=== PATIENT | female | born 1955 | race Caucasian/White ===

== ENCOUNTER 2016-05-22 09:43 | Outpatient (RCR) | payer MEDICARE, MEDICAID ==
[~2016-05-22 09:43] MED LIST: AMLO10TA2 PO; ASPI-808 PO; CETI10TA17 PO; ENAL20TA PO; FURO-124 PO; POTA20TA8 PO
--- OUTSIDE RECORDS SUMMARY | 2016-05-22 09:46 | XMS REPORT | Continuity of Care Document ---
Author Author [facility] Address Unknown Phone Unavailable Active Allergies and Adverse Reactions Not on File Current Medications Not on file Active Problems Not on file Social History Tobacco Use Types Packs/Day Years Used Date Never Assessed Plan of Care Health Maintenance Due Date Last Done Comments Hepatitis C Screening 1955 Tdap Vaccines 1964 Tetanus Vaccine (Td 1964 Booster) Cervical Cancer Screening 1974 Breast Cancer 12/19/2003 Screening-Mammogram (bilateral) Colon Cancer 12/19/2003 Screening-Colonoscopy Zoster Vaccine 2013 Influenza Vaccine (#1) 2016 Results from Last 3 Months Not on file
== END 2016-08-20 | disposition home or self-care (01) ==
LOC: CARD 09:43
PROVIDERS: ATTEND Internal Medicine Cardiovascular Disease
DX: G45.3 Amaurosis fugax (principal); I65.23 Occlusion and stenosis of bilateral carotid arteries; I10 Essential (primary) hypertension; R06.02 Shortness of breath; Z72.0 Tobacco use
CPT/HCPCS: 93225; 93226

== ENCOUNTER 2016-09-01 12:55 | Emergency (ER) | payer MEDICARE, MEDICAID ==
[~2016-09-01] VITALS: Ht 170.2 cm; Wt 158.8 kg
--- OUTSIDE RECORDS SUMMARY | 2016-09-01 13:01 | XMS REPORT | Continuity of Care Document ---
Author Author Sandhya Arthur Address Unknown Phone Unavailable Care Team Providers Care Ekg/Ecg Technician Name Role Phone [employer] Unavailable Unavailable Problems Medications Allergies, Adverse Reactions, Alerts Immunizations Results Vital Signs Encounters Procedures Plan of Care Social History Assessment and Plan Family History Value Date Source Advance Directives Order Name Results Value Date Source
--- NOTE | 2016-09-01 14:09 | ED Fall/Injury ---
General Chief Complaint: Trauma-Non Activation Stated Complaint: FALL/RIGHT ANKLE/KNEE/RIBS PAIN Nursing Triage Note: Pt c/o R knee pain, R ankle pain, and R side pain after falling when trying to get into truck earlier today. Pt denies hitting head or LOC. Source: patient, family Exam Limitations: no limitations History of Present Illness Time seen by provider: 13:47 Initial Comments Patient states she fell while getting into her truck at 1000. States her rt knee gave out while she was lifting her lt leg into the truck. Fell onto the left knee. Now c/o right knee pain, right ankle pain, mild right rib pain. Denies hitting her head or loss of consciousness. Denies neck or back pain. Location Injury Occurred: home Occurred: this morning (1000) Injuries/Pain Location: chest (right ribs), lower extremity (right knee and right ankle) Context: other (right knee gave out while getting into the truck) Loss of Consciousness: no loss of consciousness Modifying Factors: Worse With Movement, Worse With Other (worse with ambulation ) Allergies and Home Medications Allergies Coded Allergies: Tetracyclines (Verified Allergy, Unknown, NAUSEA, 02/20/15) adhesive tape (Verified Allergy, Unknown, HIVES, 02/20/15) sulfamethoxazole (Verified Allergy, Unknown, RASH, 02/20/15) trimethoprim (Verified Allergy, Unknown, RASH, 02/20/15) Home Medications Amlodipine Besylate 10 Mg Tablet 10 MG PO DAILY (Reported) Aspirin 325 Mg Tablet 325 MG PO DAILY (Reported) Cetirizine HCl 10 Mg Tablet 5 MG PO DAILY (Reported) TAKE 1/2 OF 10MG TAB Enalapril Maleate 20 Mg Tablet 20 MG PO BID (Reported) Furosemide 40 Mg Tablet 40 MG PO DAILY@1800 (Reported) Potassium Chloride 20 Meq Tab.er.prt 20 MEQ PO DAILY@1800 (Reported) Constitutional: no symptoms reported Eyes: No Symptoms Reported Ears, Nose, Mouth, Throat: no symptoms reported Respiratory: see HPINo cough, No dyspnea on exertion, No hemoptysis, No short of breath, No stridor, No wheezing, other (mild right rib pain) Cardiovascular: No chest pain, edema (chronic lower extremity edema)No palpitations, No syncope Gastrointestinal: no symptoms reported Genitourinary: no symptoms reported Musculoskeletal: see HPINo back pain, joint painNo neck pain Skin: no symptoms reported Psychiatric/Neurological: Denies Headache, Denies Numbness, Denies Paresthesia , Denies Seizure, Denies Tingling, Denies Weakness All Other Systems Reviewed Negative Unless Noted: Yes (Negative excepted noted.) Past Mezyggq-Naobsp-Offknf Hx Patient Social History Alcohol Use: Denies Use Recreational Drug Use: No Smoking Status: Current Everyday Smoker Type Used: Cigarettes Recent Foreign Travel: No Contact w/Someone Who Travel: No Recent Infectious Disease Expo: No Recent Hopitalizations: No Immunizations Up To Date Tetanus Booster (TDap): Less than 5yrs Seasonal Allergies Seasonal Allergies: No Surgeries HX Surgeries: Yes (COLON RESECTION, VENTRAL HERNIA, ) Respiratory Hx Respiratory Disorders: Yes Respiratory Disorders: Sleep Apnea Cardiovascular Hx Cardiac Disorders: Yes Cardiac Disorders: High Cholesterol, Hypertension Neurological Hx Neurological Disorders: Yes (CAROTID STENOSIS, POSSIBLE MILD TIA) Neurological Disorders: TIA Genitourinary Hx Genitourinary Disorders: No Gastrointestinal Hx Gastrointestinal Disorders: No (OCC CONSTIPATION) Gastrointestinal Disorders: Chronic Constipation Musculoskeletal Hx Musculoskeletal Disorders: Yes Musculoskeletal Disorders: Arthritis Endocrine Hx Endocrine Disorders: No HEENT HX ENT Disorders: Yes HEENT Disorders: Cataract Cancer Hx Cancer: No Psychosocial Hx Psychiatric Problems: No Integumentary HX Skin/Integumentary Disorder: No Blood Transfusions Hx Blood Disorders: No Reviewed Nursing Assessment Reviewed/Agree w Nursing PMH: Yes Family Medical History Significant Family History: No Pertinent Family Hx Family Medial History: Arthritis 19 MOTHER Asthma 19 MOTHER Cardiovascular disease 19 FATHER Cataracts 19 MOTHER Colon cancer G8 BROTHER Diabetes mellitus 19 MOTHER Hypertension 19 MOTHER G8 SISTER Respiratory disorder 19 FATHER (LUNG CANCER) Physical Exam Vital Signs Vital Sign - Last 12Hours 09/01/16 13:49 Temp 97.9 Pulse 67 Resp 18 B/P 148/65 Pulse Ox 98 O2 Delivery Room Air Capillary Refill : Less Than 3 Seconds General Appearance: WD/WN no apparent distress HEENT: PERRL/EOMI normal ENT inspection TMs normal pharynx normal other ( normocephalic, atraumatic.) Neck: non-tender full range of motion supple normal inspection Cardiovascular: normal peripheral pulses regular rate, rhythm no murmur Respiratory: chest non-tender (unable to reproduce rib tenderness.) no respiratory distress wheezing (expiratory wheezing noted in all of the right lung gill.) Peripheral Pulses: 2+ Dorsalis Pedis (R), 2+ Left Dors-Pedis (L), 2+ Radial Pulses (R), 2+ Radial Pulses (L) Gastrointestinal: normal bowel sounds non tender softNo distended Back: normal inspection no vertebral tenderness Extremities: normal range of motion normal capillary refill pelvis stable pedal edema (2+ pedal edema bilaterally (patient reports this is normal for her. 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 no motor/sensory deficits alert normal mood/affect oriented x 3 Skin: normal color warm/dryNo ecchymosis (no evidence of trauma.) [place] Coma Score Best Eye Response: (4) Open Spontaneously Best Verbal Response: (5) Oriented Best Motor Response: (6) Obeys Commands Daphney Total: 15 Progress/Results/Core Measures Results/Orders My Orders Orders-AFTAB PAL Ribs/Unilateral With Chest (09/01/16 13:56) Knee, Right, 3 Views (09/01/16 13:56) Ankle, Right, 3 Views (09/01/16 13:56) Ct Head Wo (09/01/16 13:56) Vital Signs/I&O Vital Sign - Last 12Hours 09/01/16 09/01/16 13:49 15:37 Temp 97.9 97.9 Pulse 67 68 Resp 18 18 B/P 148/65 Pulse Ox 98 98 O2 Delivery Room Air Blood Pressure Mean: 92 Diagnostic Imaging Diagonstic Imaging: CT Plain Films/CT/US/NM/MRI: head Comments FINDINGS: There is no intracranial hemorrhage, edema or mass effect. The brain parenchyma appears unremarkable. No hydrocephalus. The visualized portions of the orbits and paranasal sinuses appear unremarkable. IMPRESSION: Unremarkable study. Dictated by: Dictated on workstation # [id number] Reviewed: Reviewed by Me (radiology report reviewed by me) Diagonstic Imaging: Xray Plain Films/CT/US/NM/MRI: chest Comments FINDINGS: The lungs are clear. The heart size is normal. No effusion or pneumothorax. The mediastinum and romel appear unremarkable. Right rib radiographs demonstrate no definite fracture. IMPRESSION: Unremarkable exam. No right rib fracture identified. Dictated by: Dictated on workstation # [id number] Reviewed: Reviewed by Me (radiology report reviewed by me) Diagonstic Imaging: Xray Plain Films/CT/US/NM/MRI: knee Comments FINDINGS: There is diffuse soft tissue swelling around the knee or this may relate to a large patient body habitus. There is no fracture or dislocation. No suprapatellar effusion. No radiopaque foreign body. There is tricompartment osteophyte formation with moderate joint space loss in the medial and patellofemoral compartments. IMPRESSION: Osteoarthritis. Dictated by: Dictated on workstation # [id number] Reviewed: Reviewed by Me (radiology report reviewed by me) Diagonstic Imaging: Xray Plain Films/CT/US/NM/MRI: ankle Comments FINDINGS: There is diffuse soft tissue swelling. The ankle mortise is normal in configuration. No fracture or dislocation is seen. No radiopaque foreign body. IMPRESSION: Diffuse soft tissue swelling. No fracture seen. Dictated by: Dictated on workstation # [id number] Reviewed: Reviewed by Me (radiology report reviewed by me) Departure Communication Progress Notes diagnostic findings discussed with the patient. plan for dsch to home. Impression Impression: Primary Impression: Contusion of knee, right Additional Impressions: Contusion of rib on right side Qualified Code: S20.211A - Contusion of right front wall of thorax, initial encounter Right ankle sprain Qualified Code: S93.401A - Sprain of unspecified ligament of right ankle, initial encounter Disposition: 01 HOME, SELF-CARE Condition: Improved Departure-Patient Inst. Decision time for Depature: 15:28 Referrals: [facility] (PCP[facility]Family) Primary Care Physician Patient Instructions: Ankle Sprain (DC), Contusion (DC) Add. Discharge Instructions: All discharge instructions reviewed with patient and/or family. Voiced understanding. Tylenol extra strength [id number] as directed for pain. Ibuprofen 800 mg by mouth every 8 hours as needed for pain. Ice pack for 20 minute intervals as needed for pain. Kieran wrap as instructed. Activity as tolerated. Follow-up with your family practitioner if no improvement in symptoms in 7-10 days. Return to the emergency department for worsened pain, numbness, weakness, headache, dizziness, neck pain, back pain, shortness of air , seizure, vomiting, or any other concerns. AFTAB PAL Sep 01, 2016 14:09
--- NOTE | 2016-09-01 14:17 | Diagnostic Imaging Report ---
PROCEDURE: CT head without contrast. TECHNIQUE: Multiple contiguous axial images were obtained through the brain without the use of intravenous contrast. INDICATION: Fall . FINDINGS: There is no intracranial hemorrhage, edema or mass effect. The brain parenchyma appears unremarkable. No hydrocephalus. The visualized portions of the orbits and paranasal sinuses appear unremarkable. IMPRESSION: Unremarkable study. Dictated by: Dictated on workstation # [id number]
--- NOTE | 2016-09-01 14:36 | Diagnostic Imaging Report ---
3 views of the right ankle. INDICATION: Fall. FINDINGS: There is diffuse soft tissue swelling. The ankle mortise is normal in configuration. No fracture or dislocation is seen. No radiopaque foreign body. IMPRESSION: Diffuse soft tissue swelling. No fracture seen. Dictated by: Dictated on workstation # [id number]
--- NOTE | 2016-09-01 14:43 | Diagnostic Imaging Report ---
PA chest and right rib radiographs. INDICATION: Injury. FINDINGS: The lungs are clear. The heart size is normal. No effusion or pneumothorax. The mediastinum and romel appear unremarkable. Right rib radiographs demonstrate no definite fracture. IMPRESSION: Unremarkable exam. No right rib fracture identified. Dictated by: Dictated on workstation # [id number]
--- NOTE | 2016-09-01 14:44 | Diagnostic Imaging Report ---
EXAMINATION: Three views of the right knee. INDICATION: Injury. FINDINGS: There is diffuse soft tissue swelling around the knee or this may relate to a large patient body habitus. There is no fracture or dislocation. No suprapatellar effusion. No radiopaque foreign body. There is tricompartment osteophyte formation with moderate joint space loss in the medial and patellofemoral compartments. IMPRESSION: Osteoarthritis. Dictated by: Dictated on workstation # [id number]
[2016-09-01 15:37] VITALS: BP 144/73
== END 2016-09-01 15:37 | disposition home or self-care (01) ==
LOC: EDUNIT# 12:55 → ER 12:58
DX: S93.401A Sprain of unspecified ligament of right ankle, initial encounter (principal); S80.01XA Contusion of right knee, initial encounter; S20.211A Contusion of right front wall of thorax, initial encounter; M17.11 Unilateral primary osteoarthritis, right knee; I10 Essential (primary) hypertension; F17.210 Nicotine dependence, cigarettes, uncomplicated; Z79.82 Long term (current) use of aspirin; Z79.899 Other long term (current) drug therapy; V58.4XXA Person boarding or alighting a pick-up truck or van injured in noncollision transport accident, initial encounter; Y99.8 Other external cause status
CPT/HCPCS: 70450; 71101; 73562; 73610; 99283

== ENCOUNTER → 2017-07-02 | Outpatient (CLI) | payer MEDICARE, MEDICAID ==
[2017-07-02 09:42] LABS: ALANINE AMINOTRANSFERASE 17 U/L (0-55); ALBUMIN 3.8 GM/DL (3.2-4.5); ALKALINE PHOSPHATASE 80 U/L (40-136); BILIRUBIN,TOTAL 0.6 MG/DL (0.1-1.0); BUN/CREATININE RATIO 20; CALCIUM 9.6 MG/DL (8.5-10.1); CARBON DIOXIDE 23 MMOL/L (21-32); CHLORIDE 104 MMOL/L (98-107); CHOLESTEROL 147 MG/DL (< 200); CREATININE SERUM 0.81 MG/DL (0.60-1.30); GFR ESTIMATED > 60; GLUCOSE 124 MG/DL (70-105); HDL CHOLESTEROL 51 MG/DL (40-60); POTASSIUM 4.1 MMOL/L (3.6-5.0); SODIUM 139 MMOL/L (135-145); TOTAL PROTEIN 7.9 GM/DL (6.4-8.2); TRIGLYCERIDES 112 MG/DL (<150); VLDL CHOLESTEROL 22 MG/DL (5-40)
== END ==
LOC: LAB 08:59
PROVIDERS: ATTEND Physician Assistant
DX: I10 Essential (primary) hypertension (principal); E78.2 Mixed hyperlipidemia
CPT/HCPCS: 36415; 80053; 80061

== ENCOUNTER → 2017-07-24 | Outpatient (CLI) | payer MEDICARE, MEDICAID | LOC: CARD 10:19 | PROVIDERS: ATTEND Physician Assistant | DX: H34.232 Retinal artery branch occlusion, left eye (principal); I65.23 Occlusion and stenosis of bilateral carotid arteries; I10 Essential (primary) hypertension; R06.02 Shortness of breath | CPT/HCPCS: 93306 ==

== ENCOUNTER 2017-10-08 10:44 | Outpatient (RCR) | payer MEDICARE, MEDICAID | END 2017-10-08 11:44 | disposition home or self-care (01) | PROVIDERS: ATTEND Nurse Practitioner Community Health | DX: M25.561 Pain in right knee (principal); M25.562 Pain in left knee; E66.01 Morbid (severe) obesity due to excess calories ==

== ENCOUNTER → 2017-12-25 | Outpatient (CLI) | payer MEDICARE, MEDICAID ==
--- NOTE | 2017-12-25 13:39 | Diagnostic Imaging Report ---
EXAM: CT CHEST SCREENING WO INDICATION: 75 pack year smoking history. Current smoker. COMPARISON: None. FINDINGS: Examination is limited by tube current versus body mass. There may be an ill-defined groundglass opacity in the left lower lobe measuring up to 4.5 cm. No solid pulmonary nodules are seen. No endobronchial lesions. No pleural effusion or pneumothorax. Normal heart size. No pericardial effusion. Moderate atherosclerotic calcifications including coronary and aorta. No acute osseous findings. IMPRESSION: 1. Examination limited by tube current versus body mass. 2. There may be an ill-defined groundglass opacity in the central left lower lobe measuring up to 4.5 cm. Given the limitations of this exam, this may actually represent artifact. Recommend followup regular dose chest CT without contrast in 6 months. 3. Moderate atherosclerotic calcifications including coronary and aortic. Lung rads category: 3. Modifier: S. Dictated by: Dictated on workstation # [id number]
--- NOTE | 2017-12-25 17:51 | Diagnostic Imaging Report ---
INDICATION: Routine screening. Comparison is made with prior study from 12/11/2015 and 03/19/2013. 2-D and 3-D bilateral screening mammography was performed with CAD. The current study was also evaluated with a Computer Aided Detection (CAD) system. FINDINGS: Both breasts are primarily involutional. Benign nodular densities in the left breast appear stable. There are benign calcifications. No spiculated mass or malignant-appearing microcalcifications are seen. The axillae are unremarkable. IMPRESSION: No mammographic features suspicious for malignancy are identified. ACR BI-RADS Category 2: Benign findings. Result letter will be mailed to the patient. Note: At least 10% of breast cancer is not imaged by mammography. Dictated by: Dictated on workstation # [id number]
== END ==
LOC: RAD 09:06
PROVIDERS: ATTEND Pediatrics
DX: Z12.31 Encounter for screening mammogram for malignant neoplasm of breast (principal); I70.0 Atherosclerosis of aorta; I25.10 Atherosclerotic heart disease of native coronary artery without angina pectoris; D24.9 Benign neoplasm of unspecified breast; F17.210 Nicotine dependence, cigarettes, uncomplicated
CPT/HCPCS: 77067

== ENCOUNTER → 2018-09-03 | Outpatient (CLI) | payer MEDICARE, MEDICAID ==
[~2018-09-03] MED LIST changes: -AMLO10TA2 PO; +AMLO10TA7 PO
== END ==
LOC: CARD 13:20
PROVIDERS: ATTEND Physician Assistant
DX: I65.23 Occlusion and stenosis of bilateral carotid arteries (principal); H34.232 Retinal artery branch occlusion, left eye; I10 Essential (primary) hypertension; E66.01 Morbid (severe) obesity due to excess calories; R06.02 Shortness of breath; I35.0 Nonrheumatic aortic (valve) stenosis; Z72.0 Tobacco use
CPT/HCPCS: 93306

== ENCOUNTER → 2019-01-07 | Outpatient (CLI) | payer MEDICARE, MEDICAID ==
--- NOTE | 2019-01-07 08:37 | Diagnostic Imaging Report ---
Examination: CT chest without contrast (lung cancer screening). History: [id number] history of smoking. Technique: Low-dose lung cancer screening CT was performed including coronal maximum intensity projection images. Findings: Comparison is 12/25/2017. There are no suspicious pulmonary nodules. No edema or pneumonia. No pleural effusion or pneumothorax. The lungs are mildly emphysematous. Heart size is normal. There are mitral annular and coronary artery calcifications. No axillary, supraclavicular or mediastinal lymphadenopathy. Limited views of the upper abdomen are normal. There are no suspicious osseous lesions. Impression: 1. No suspicious pulmonary nodules. Lung rads category: 2. Modifier: None. Other significant findings: None. Dictated by: Dictated on workstation # [id number]
== END ==
LOC: RAD 07:21
PROVIDERS: ATTEND Pediatrics
DX: Z12.2 Encounter for screening for malignant neoplasm of respiratory organs (principal); Z87.891 Personal history of nicotine dependence

== ENCOUNTER → 2021-04-29 | Outpatient (CLI) | payer MEDICARE, MEDICAID ==
[~2021-04-29] MED LIST changes: +AMLO-251 PO; -AMLO10TA7 PO; -ENAL20TA PO; +ENAL20TA16 PO
== END ==
LOC: CARD 12:30
PROVIDERS: ATTEND Pediatrics
DX: I51.7 Cardiomegaly (principal); I35.0 Nonrheumatic aortic (valve) stenosis
CPT/HCPCS: 93306

== ENCOUNTER → 2022-06-24 | Outpatient (CLI) | payer MEDICARE, MEDICAID ==
[~2022-06-24] MED LIST changes: +POTA-169 PO; -POTA20TA8 PO
== END ==
LOC: RAD 10:11
PROVIDERS: ATTEND Pediatrics
DX: Z78.0 Asymptomatic menopausal state (principal)

== ENCOUNTER → 2022-07-07 | Outpatient (CLI) | payer MEDICARE, MEDICAID ==
[~2022-07-07] MED LIST changes: +RT-ALBUTEROL SULF 2.5 MG/3 ML PRE-MIX VIAL INH ONE
== END ==
LOC: RT 09:45
PROVIDERS: ATTEND Pediatrics
DX: J44.9 Chronic obstructive pulmonary disease, unspecified (principal)
CPT/HCPCS: 94060; 94729

== ENCOUNTER 2023-01-31 17:18 | Observation (INO) | payer MEDICARE, MEDICAID ==
[~2023-01-31] VITALS: Ht 168.9 cm; Wt 145.7 kg
[~2023-01-31 17:18] MED LIST changes: +ENAL-70 PO; -ENAL20TA16 PO; -RT-ALBUTEROL SULF 2.5 MG/3 ML PRE-MIX VIAL INH ONE
--- NOTE | 2023-01-31 17:35 | ED Lower Extremity ---
General Chief Complaint: Lower Extremity Stated Complaint: KNEE PAIN Nursing Triage Note: ARRIVED VIA EMS FROM HOME WITH COMPLAINTS OF RIGHT KNEE PAIN STARTING X3 DAYS AGO. STATES WHEN SHE TRIES TO STAND THE PAIN RADIATES INTO HER RIGHT HIP. Source: patient Exam Limitations: no limitations History of Present Illness Date Seen by Provider: Jan 31, 2023 Time Seen by Provider: 17:31 Initial Comments Patient is a 67-year-old female with a history of carotid artery stenosis, COPD, hypertension who presents ED with right knee pain. Knee pain started 3 days ago. Dull achy pain right anterior knee. This pain does radiate to the posterior knee. Patient stays at [facility] She gets around with a motorized scooter. Typically able to ambulate to the bathroom as needed. Today she was not able to bear weight on her right knee. She reports chronic swelling of her lower extremities for several months. She has a wound to her left lower leg and currently in a bandage. She states the wound appears to be improving. She denies of any calf pain, thigh pain. She does state when she bear weight the pain radiates up into the right hip. She denies fever, chills, redness or swelling of the right knee. Denies of any specific falls. EMS was contacted and assisted with the fire department to help get patient off the ground. Patient states she had to call the fire department to help get her off the stool this morning. Patient denies fever, chills, headache, dizziness, nausea, vomiting, diarrhea, chest pain, shortness of breath. Allergies and Home Medications Allergies Coded Allergies: albuterol (Unverified Allergy, Severe, Anaphylaxis, 01/31/23) Patient states albuterol causes her to feel like throat is closing. States that she was tested here for it prior but is unsure when. Tetracyclines (Verified Allergy, Unknown, NAUSEA, 02/20/15) adhesive tape (Verified Allergy, Unknown, HIVES, 02/20/15) sulfamethoxazole (Verified Allergy, Unknown, RASH, 02/20/15) trimethoprim (Verified Allergy, Unknown, RASH, 02/20/15) Patient Home Medication List Home Medication List Reviewed: Yes Aspirin (Aspirin) 325 Mg Tablet, 325 MG PO DAILY, (Reported) Entered as Reported by: DELANEY CHEUNG on 02/20/15 0728 Last Action: Continued Cetirizine HCl (Cetirizine HCl) 10 Mg Tablet, 5 MG PO DAILY, (Reported) Entered as Reported by: DELANEY CHEUNG on 02/20/151248 Last Action: Converted Cholecalciferol (Vitamin D3) (Vitamin D3) 125 Mcg/Ml (5000 Unit/Ml) Drops, 125 MCG PO DAILY, (Reported) Entered as Reported by: YONG DE PAZ on 02/01/23809 Last Action: Converted Cinnamon Bark (Cinnamon) 500 Mg Capsule, 1,200 MG PO DAILY, (Reported) Entered as Reported by: YONG DE PAZ on 02/01/23809 Last Action: Converted Enalapril Maleate (Enalapril Maleate) 20 Mg Tablet, 20 MG PO DAILY, (Reported) Entered as Reported by: DELANEY CHEUNG on 02/20/151248 Last Action: Converted Furosemide (Lasix) 40 Mg Tablet, 40 MG PO DAILY@1800, (Reported) Entered as Reported by: DELANEY CHEUNG on 02/20/151248 Last Action: Continued [place]-3/Dha/Epa/Fish Oil (Fish Oil 1,400 mg Softgel) 850 Mg-1,400 Mg Capsule, 1 EACH PO DAILY, (Reported) Entered as Reported by: YONG DE PAZ on 02/01/23809 Last Action: Converted Potassium Chloride (Klor-Con M20) 20 Meq Tab.er.prt, 20 MEQ PO DAILY@1800, (Reported) Entered as Reported by: DELANEY CHEUNG on 02/20/151248 Last Action: Continued Rosuvastatin Calcium (Rosuvastatin Calcium) 10 Mg Tablet, 10 MG PO HS, (Reported) Entered as Reported by: YONG DE PAZ on 02/01/23809 Last Action: Continued Vitamin B Complex & Vit C No.3 (B Complex with Vitamin C) 15-10-300 Capsule, 1 EACH PO DAILY, (Reported) Entered as Reported by: YONG DE PAZ on 02/01/23809 Last Action: Converted Discontinued Medications Amlodipine Besylate (Amlodipine Besylate) 10 Mg Tablet, 10 MG PO DAILY, (Reported) Discontinued Reason: No Longer Taking Entered as Reported by: DELANEY CHEUNG on 9/1/15 1249 Last Action: Discontinued Review of Systems Constitutional: No chills, No diaphoresis EENTM: No blurred vision Respiratory: No dyspnea on exertion Cardiovascular: No edema Gastrointestinal: No abdominal pain, No constipation, No nausea, No vomiting Genitourinary: No discharge Musculoskeletal: joint pain; No joint swelling, No muscle pain Skin: No change in color, No change in hair/nails All Other Systems Reviewed Negative Unless Noted: Yes Past Bjxiygw-Napjip-Epluvm Hx Patient Social History Tobacco Use?: Yes Tobacco type used: Cigarettes Smoking Status: Current Everyday Smoker Substance use?: No Alcohol Use?: No Immunizations Up To Date Tetanus Booster (TDap): Less than 5yrs Seasonal Allergies Seasonal Allergies: No Past Medical History Sleep Apnea Currently Using CPAP: No Currently Using BIPAP: Yes High Cholesterol, Hypertension TIA Chronic Constipation Arthritis Cataract Family Medical History Arthritis 19 MOTHER Asthma 19 MOTHER Cardiovascular disease 19 FATHER Cataracts 19 MOTHER Colon cancer G8 BROTHER Diabetes mellitus 19 MOTHER Hypertension 19 MOTHER G8 SISTER Respiratory disorder 19 FATHER (LUNG CANCER) No Pertinent Family Hx Physical Exam Vital Signs Vital Signs - First Documented 01/31/23 17:18 Temp 36.4 Pulse 84 Resp 16 B/P (MAP) 130/68 (88) Pulse Ox 94 O2 Delivery Room Air Capillary Refill : Less Than 3 Seconds Height, Weight, BMI Height: 5'7" Weight: 350lbs. 0.0oz. 158.846142mb; 55.00 BMI Method:Stated General Appearance: WD/WN, no apparent distress HEENT: PERRL/EOMI, TMs normal, pharynx normal Neck: non-tender, full range of motion, supple, normal inspection Cardiovascular: regular rate, rhythm, no edema, no gallop, no JVD Respiratory: chest non-tender, lungs clear, normal breath sounds, no respiratory distress, no accessory muscle use Gastrointestinal: normal bowel sounds, non tender, soft, no organomegaly Back: normal inspection, no CVA tenderness Hips: bilateral hip non-tender, bilateral hip normal inspection, bilateral hip normal range of motion, bilateral hip no evidence of injury Legs: bilateral leg swelling (Bilateral lower extremity swelling.), bilateral leg other (+2 pitting edema bilateral lower extremity. Softball size healing anterior lower skin wound without necrosis, purulent drainage, or ulceration) Knees: right knee other (Bilateral anterior knee tenderness, posterior knee tenderness with full extension and flexion to 90 degrees. Anterior and posterior knee tenderness. No laxity with valgus or varus stress. Negative anterior and posterior drawer test) Ankles: bilateral ankle non-tender, bilateral ankle normal inspection, bilateral ankle normal range of motion Neurologic/Psychiatric: glass cut off tender II-XII nml as tested, no motor/sensory deficits, alert, normal mood/affect, oriented x 3 Progress/Results/Core Measures Results/Orders Lab Results Laboratory Tests Test 01/31/23 18:03 01/31/23 18:42 Range/Units White Blood Count 13.2 H 4.3-11.0 10^3/uL Red Blood Count 4.36 3.80-5.11 10^6/uL Hemoglobin 13.4 11.5-16.0 g/dL Hematocrit 41 35-52 % Mean Corpuscular Volume 94 80-99 fL Mean Corpuscular Hemoglobin 31 25-34 pg Mean Corpuscular Hemoglobin Concent 33 32-36 g/dL Red Cell Distribution Width 13.3 10.0-14.5 % Platelet Count 236 130-400 10^3/uL Mean Platelet Volume 9.7 9.0-12.2 fL Immature Granulocyte % (Auto) 0 % Neutrophils (%) (Auto) 72 42-75 % Lymphocytes (%) (Auto) 18 12-44 % Monocytes (%) (Auto) 6 0-12 % Eosinophils (%) (Auto) 3 0-10 % Basophils (%) (Auto) 1 0-10 % Neutrophils # (Auto) 9.6 H 1.8-7.8 10^3/uL Lymphocytes # (Auto) 2.3 1.0-4.0 10^3/uL Monocytes # (Auto) 0.8 0.0-1.0 10^3/uL Eosinophils # (Auto) 0.4 H 0.0-0.3 10^3/uL Basophils # (Auto) 0.1 0.0-0.1 10^3/uL Immature Granulocyte # (Auto) 0.1 0.0-0.1 10^3/uL D-Dimer 0.61 H 0.00-0.49 UG/ML Sodium Level 143 135-145 MMOL/L Potassium Level 4.0 3.6-5.0 MMOL/L Chloride Level 106 98-107 MMOL/L Carbon Dioxide Level 24 21-32 MMOL/L Anion Gap 13 5-14 MMOL/L Blood Urea Nitrogen 30 H 7-18 MG/DL Creatinine 1.10 0.60-1.30 MG/DL Estimat Glomerular Filtration Rate 54 BUN/Creatinine Ratio 27 Glucose Level 149 H 70-105 MG/DL Calcium Level 10.1 8.5-10.1 MG/DL Corrected Calcium 10.3 H 8.5-10.1 MG/DL Total Bilirubin 0.4 0.1-1.0 MG/DL Aspartate Amino Transf (AST/SGOT) 15 5-34 U/L Alanine Aminotransferase (ALT/SGPT) 14 0-55 U/L Alkaline Phosphatase 81 40-136 U/L Troponin I < 0.028 <0.028 NG/ML B-Type Natriuretic Peptide 64.1 <100.0 PG/ML Total Protein 8.1 6.4-8.2 GM/DL Albumin 3.7 3.2-4.5 GM/DL Urine Color YELLOW Urine Clarity CLEAR Urine pH 6.0 5-9 Urine Specific [place] 1.020 1.016-1.022 Urine Protein NEGATIVE NEGATIVE Urine Glucose (UA) NEGATIVE NEGATIVE Urine Ketones NEGATIVE NEGATIVE Urine Nitrite NEGATIVE NEGATIVE Urine Bilirubin NEGATIVE NEGATIVE Urine Urobilinogen 0.2 < = 1.0 MG/DL Urine Leukocyte Esterase NEGATIVE NEGATIVE Urine RBC (Auto) TRACE H NEGATIVE Urine RBC NONE /HPF Urine WBC NONE /HPF Urine Squamous Epithelial Cells 0-2 /HPF Urine Crystals NONE /LPF Urine Bacteria TRACE /HPF Urine Casts NONE /LPF Urine Mucus NEGATIVE /LPF Urine Culture Indicated NO My Orders Orders - MELISSA NOBLES PA Knee, Right, 3 Views (01/31/23 17:27) Cbc With Automated Diff (01/31/23 17:46) Comprehensive Metabolic Panel (01/31/23 17:46) Iv/Invasive Line Insertion .IV INSERT (01/31/23 17:46) Catheter(Urinary) Insert & Ass 03,15 (01/31/23 18:36) Lidocaine 2% (Urojet) (Lidocaine 2% (Uro (01/31/23 18:45) Ua Culture If Indicated (01/31/23 18:46) Ed Admission (Communication) (01/31/23 18:57) Vital Signs/I&O 01/31/23 17:18 Temp 36.4 Pulse 84 Resp 16 B/P (MAP) 130/68 (88) Pulse Ox 94 O2 Delivery Room Air Blood Pressure Mean: 88 Departure Communication (PCP) History of COPD, hypertension, carotid artery stenosis. She presents to ED for evaluation of right knee pain. Pain started 3 days ago described as dull. She states this morning she was not able to get off the toilet. Fire department had to help assist patient off the toilet. She gets around with a electric scooter. Typically able to ambulate to the toilet and into her bed but not able to stand or bear any weight on her right knee/leg today. She states her right knee wants to give out. Patient is obese. She takes care of herself at home. Daughter does help with groceries and some assistance however cannot assist if she falls to the ground. She does have a wound to her left leg currently being managed with topical antibiotic ointment. She states wound appears to be healing. Chronic lower extremity edema bilateral. currently on lasix. No known cardiac history. Patient is hemodynamically stable. EMS was contacted today as patient was not able to transfer over to her bed. She fell and needed assistance with the fire department for second time today. Multiple people needed to move patient from ambulance cot to our bed. Patient with pain and tenderness to right anterior and posterior knee. No thigh or calf tenderness. No history of DVT. Chronic swelling noted lower extremities bilateral. She appears to be have a healing wound to her left anterior lower leg. Does not necessarily appear infectious. no purulent drainage or fluctuant mass . generalized lab work was ordered CBC, CMP and urinalysis. CBC shows slight elevated white blood count at 13. Chemistry grossly unremarkable. We were not able to get patient u p onto a commode or onto a bedpan. x-ray of the right knee shows degenerative changes. My concern with patient at this time as she is not able to stand or bear any weight or even take care of herself at home. I am concerned for patient's safety at home as she has no assistance to help get her up off the toilet or even her bed. Patient was discussed with Dr. Rebolledo hospitalist for [facility]. Patient sees Dr. Barreto. Dr. Rebolledo agreed to accept the patient for intractable right leg pain, unable to bear weight and unable to care for self She was having pain here but was refusing something for pain. She state she took Tylenol at home and was okay with that for now. I do think patient would likely benefit with rehab. It was discussed with patient and family at some point she may need [place] [facility]. Venegas catheter was placed secondary to immobilization Impression Primary Impression: Knee pain Additional Impressions: Unable to care for self Intractable pain Disposition: ADMITTED INPATIENT Condition: Stable Admissions Decision to Admit Reason: Admit from ER (General) Decision to Admit/Date: Jan 31, 2023 Time/Decision to Admit Time: 18:43 Departure-Patient Inst. Referrals: [facility] (PCP/Family) Primary Care Physician MELISSA NOBLES Jan 31, 2023 17:35
[2023-01-31 18:06] LABS: BASOPHILS # (AUTO) 0.1 10^3/uL (0.0-0.1); BASOPHILS % (AUTO) 1 % (0-10); EOSINOPHILS # (AUTO) 0.4 10^3/uL (0.0-0.3); EOSINOPHILS % (AUTO) 3 % (0-10); HEMATOCRIT 41 % (35-52); HEMOGLOBIN 13.4 g/dL (11.5-16.0); LYMPHOCYTES # (AUTO) 2.3 10^3/uL (1.0-4.0); LYMPHOCYTES % (AUTO) 18 % (12-44); MEAN CORPUSCULAR HEMOGLOBIN 31 pg (25-34); MEAN CORPUSCULAR HGB CONC 33 g/dL (32-36); MEAN CORPUSCULAR VOLUME 94 fL (80-99); MEAN PLATELET VOLUME 9.7 fL (9.0-12.2); MONOCYTES # (AUTO) 0.8 10^3/uL (0.0-1.0); MONOCYTES % (AUTO) 6 % (0-12); NEUTROPHILS # (AUTO) 9.6 10^3/uL (1.8-7.8); NEUTROPHILS % (AUTO) 72 % (42-75); PLATELET COUNT 236 10^3/uL (130-400); WHITE BLOOD COUNT 13.2 10^3/uL (4.3-11.0)
[2023-01-31 18:19] LABS: ALBUMIN 3.7 GM/DL (3.2-4.5)
[2023-01-31 18:20] LABS: CALCIUM 10.1 MG/DL (8.5-10.1)
[2023-01-31 18:21] LABS: TOTAL PROTEIN 8.1 GM/DL (6.4-8.2)
[2023-01-31 18:23] LABS: BILIRUBIN,TOTAL 0.4 MG/DL (0.1-1.0)
[2023-01-31 18:25] LABS: CREATININE SERUM 1.1 MG/DL (0.60-1.30)
--- NOTE | 2023-01-31 18:25 | Diagnostic Imaging Report ---
EXAM: Knee, right, 3 views. INDICATION: Right knee pain. COMPARISON: 09/01/2016. FINDINGS: Moderate to severe degenerative changes in the right knee are greatest in the medial compartment. No fracture is identified. Small right knee joint effusion. IMPRESSION: 1. No acute radiographic finding in the right knee. 2. Small right knee joint effusion. 3. Moderate to severe degenerative changes are greatest in the medial compartment. Dictated by: Dictated on workstation # [id number]
[2023-01-31] MEDS ORDERED: LIDOCAINE UROJET 2% GEL 10 ML PKG TOP ONE (18:45)
[2023-01-31 18:59] LABS: BACTERIA,URINE TRACE /HPF; BILIRUBIN,URINE NEGATIVE (NEGATIVE); CLARITY,URINE CLEAR; COLOR,URINE YELLOW; GLUCOSE, URINE (UA) NEGATIVE (NEGATIVE); KETONES,URINE NEGATIVE (NEGATIVE); LEUKOCYTE ESTERASE ,URINE NEGATIVE (NEGATIVE); NITRITE,URINE NEGATIVE (NEGATIVE); PROTEIN,URINE NEGATIVE (NEGATIVE); SQUAMOUS EPITHELIAL CELL,UR 0-2 /HPF
[2023-01-31 19:15] VITALS: BP 103/66
[2023-01-31] MEDS ORDERED: cloNIDine 0.1 MG TABLET PO PRN (19:45)
[2023-01-31] MEDS ORDERED: CALCIUM CARBONATE 500 MG CHEW TABLET PO PRN (19:45)
[2023-01-31] MEDS ORDERED: ANTACID SUSPENSION 30 ML UDC PO PRN (19:45)
[2023-01-31] MEDS ORDERED: ONDANSETRON 4 MG (ZOFRAN) ORAL DISSOLVE TAB PO PRN (19:45)
[2023-01-31] MEDS ORDERED: polyethylene glycoL POWDER 17 GM (MIRALAX) PACK PO PRN (19:45)
[2023-01-31] MEDS ORDERED: LACTULOSE SYRUP 10GM/15ML 30ML UDC PO PRN (19:45)
[2023-01-31] MEDS ORDERED: diphenhydrAMINE INJ 50 MG/ML VIAL IVP PRN (19:45)
[2023-01-31] MEDS ORDERED: BISACODYL 10 MG SUPPOSITORY PR PRN (19:45)
[2023-01-31] MEDS ORDERED: oxyCODONE IMMEDIATE RELEASE 5 MG TABLET PO PRN (19:45)
[2023-01-31] MEDS ORDERED: MILK OF MAGNESIA 400 MG/5 ML 30 ML UDC PO PRN (19:45)
[2023-01-31] MEDS ORDERED: ALPRAZolam 0.25 MG TABLET PO PRN (19:45)
[2023-01-31] MEDS ORDERED: MELATONIN 3 MG TABLET PO PRN (19:45)
[2023-01-31] MEDS ORDERED: HYDROmorphone INJECTION 2 MG/ML VIAL IV PRN (19:45)
[2023-01-31] MEDS ORDERED: ENOXAPARIN 40 MG/0.4 ML SYRINGE SC SCH (19:45)
[2023-01-31] MEDS ORDERED: diphenhydrAMINE 25 MG TABLET PO PRN (19:45)
[2023-01-31] MEDS ORDERED: ACETAMINOPHEN 325 MG TABLET PO PRN (19:45)
[2023-01-31] MEDS ORDERED: RT-Ipratropium/Albuterol NEB 3 ML VIAL INH PRN (20:00)
[2023-01-31] MEDS ORDERED: ACETAMINOPHEN 325 MG TABLET ONE (20:17)
[2023-01-31] MEDS ORDERED: RT-IPRATROPIUM NEBS 0.5 MG/2.5 ML IH ONE (20:45)
--- NOTE | 2023-01-31 21:23 | Diagnostic Imaging Report ---
EXAM: Chest 1 view, AP/PA only. INDICATION: Hypoxia. COMPARISON: 02/20/2015. FINDINGS: Borderline heart size with mild pulmonary vascular congestion, new compared to the prior exam. No pleural effusion or pneumothorax. No focal pulmonary opacity. No acute osseous finding. IMPRESSION: Borderline heart size and mild pulmonary vascular congestion is new compared to 2015. Dictated by: Dictated on workstation # [id number]
[2023-01-31 21:53] LABS: ABG OXYGEN SATURATION 92 % (94-100); ABG PCO2 42 MMHG (35-45); ABG PH 7.42 (7.37-7.43); ABG PO2 63 MMHG (79-93); ABG TCO2 27.4 MMOL/L (21.0-31.0); ALLENS TEST YES-POS; INSPIRED O2 ROOM AIR; VENTILATOR NO
[2023-01-31] MEDS ORDERED: RT-IPRATROPIUM NEBS 0.5 MG/2.5 ML IH SCH (22:00)
[2023-01-31] MEDS ORDERED: RT-LEVALBUTEROL 1.25 MG/3 ML NEBS (NON-FORMULARY) ONE (22:02)
[2023-01-31] MEDS: SENNOSIDES 8.6 MG (SENOKOT) TAB PO SCH (22:38)
[2023-01-31] MEDS: DOCUSATE SODIUM 100 MG CAPSULE PO SCH (22:38)
[2023-02-01] VITALS (7 sets, daily range): BP systolic 109–143; BP diastolic 59–75
[2023-02-01] MEDS: cefTRIAXone IV/IM 1,000 MG in NS (IVPB) 50 ML 50 ML IV SCH ×2 (01:01→20:44)
[2023-02-01] MEDS: ENOXAPARIN 100 MG/1 ML SYRINGE SC SCH ×2 (01:02→11:50)
[2023-02-01] MEDS: dexAMETHasone INJ 4 MG/ML SDV IV SCH ×3 (01:02→20:38)
[2023-02-01] MEDS: MONTELUKAST 10 MG TABLET PO SCH ×2 (01:03→20:38)
[2023-02-01 05:26] LABS: BASOPHILS # (AUTO) 0.1 10^3/uL (0.0-0.1); BASOPHILS % (AUTO) 1 % (0-10); EOSINOPHILS # (AUTO) 0.1 10^3/uL (0.0-0.3); EOSINOPHILS % (AUTO) 1 % (0-10); HEMATOCRIT 40 % (35-52); LYMPHOCYTES # (AUTO) 1.5 10^3/uL (1.0-4.0); LYMPHOCYTES % (AUTO) 14 % (12-44); MEAN CORPUSCULAR HEMOGLOBIN 31 pg (25-34); MEAN CORPUSCULAR HGB CONC 33 g/dL (32-36); MEAN CORPUSCULAR VOLUME 93 fL (80-99); MONOCYTES # (AUTO) 0.4 10^3/uL (0.0-1.0); MONOCYTES % (AUTO) 3 % (0-12); NEUTROPHILS # (AUTO) 8.5 10^3/uL (1.8-7.8); NEUTROPHILS % (AUTO) 81 % (42-75); PLATELET COUNT 213 10^3/uL (130-400); WHITE BLOOD COUNT 10.5 10^3/uL (4.3-11.0)
[2023-02-01 05:37] LABS: ALBUMIN 3.6 GM/DL (3.2-4.5); POTASSIUM 4.1 MMOL/L (3.6-5.0)
[2023-02-01 05:39] LABS: CALCIUM 9.7 MG/DL (8.5-10.1)
[2023-02-01 05:40] LABS: TOTAL PROTEIN 7.6 GM/DL (6.4-8.2)
[2023-02-01 05:42] LABS: BILIRUBIN,TOTAL 0.5 MG/DL (0.1-1.0)
[2023-02-01 05:43] LABS: CREATININE SERUM 0.98 MG/DL (0.60-1.30)
--- NOTE | 2023-02-01 07:54 | History & Physical-Hospitalist ---
History of Present Illness HPI/Chief Complaint Chief complaint: Unable to ambulate due to knee pain and exacerbation of COPD current smoker HPI: This is a 67-year-old female who lives in an apartment in [place] Who presented to the ER unable to ambulate and was picked up off the floor by the bilingual trainer twice today who suffered no fractures but unable to ambulate and no longer safe to go back to her apartment. She is morbidly obese and became short of breath upon arrival so work-up was initiated showing hypoxia so placed on oxygen IV steroids and IV antibiotics for bronchitis. Currently her sister and daughter are at the bedside. Source: patient Exam Limitations: no limitations Date Seen 02/01/23 Time Seen by a Provider: 11:00 Attending Physician [place] PCP Admitting Physician: Rosie Rebolledo DO Attending Physician: Rosie Rebolledo DO Referring Physician Date of Admission Jan 31, 2023 at 19:07 Home Medications & Allergies Home Medications Reviewed patient Home Medication Reconciliation performed by pharmacy medication reconciliations salvage engineering technician and/or nursing. Patients Allergies have been reviewed. Allergies Allergies Coded Allergies albuterol (Unverified Allergy, Severe, Anaphylaxis, 01/31/23) Patient states albuterol causes her to feel like throat is closing. States that she was tested here for it prior but is unsure when. Tetracyclines (Verified Allergy, Unknown, NAUSEA, 02/20/15) adhesive tape (Verified Allergy, Unknown, HIVES, 02/20/15) sulfamethoxazole (Verified Allergy, Unknown, RASH, 02/20/15) trimethoprim (Verified Allergy, Unknown, RASH, 02/20/15) Past Ucslcme-Jmbjrw-Eobigx Hx Patient Social History Marrital Status: single Employed/Student: retired Tobacco Use?: Yes Tobacco type used: Cigarettes Smoking Status: Current Everyday Smoker Use of E-Cig and/or Vaping dev: No Substance use?: No Alcohol Use?: No Pt feels they are or have been: No Immunizations Up To Date Tetanus Booster (TDap): Unknown Hepatitis A: No Hepatitis B: No Seasonal Allergies Seasonal Allergies: No Current Status status: No status: No Advance Directives: No Communicates: Verbally Primary Language: Slovak Preferred Spoken Language: Slovak Is interpretation needed?: No Sensory deficits: Vision impairment Implanted or Applied Medical D: None Past Medical History Sleep Apnea Currently Using CPAP: No Currently Using BIPAP: Yes High Cholesterol, Hypertension TIA Chronic Constipation Arthritis Cataract Family Medical History Arthritis 19 MOTHER Asthma 19 MOTHER Cardiovascular disease 19 FATHER Cataracts 19 MOTHER Colon cancer G8 BROTHER Diabetes mellitus 19 MOTHER Hypertension 19 MOTHER G8 SISTER Respiratory disorder 19 FATHER (LUNG CANCER) No Pertinent Family Hx Review of Systems Constitutional: see HPI, malaise, weakness EENTM: no symptoms reported Respiratory: dyspnea on exertion, short of breath Cardiovascular: no symptoms reported Gastrointestinal: no symptoms reported Musculoskeletal: back pain, joint pain Skin: no symptoms reported Psychiatric/Neurological: No Symptoms Reported All Other Systems Reviewed Negative Unless Noted: Yes Physical Exam Physical Exam Vital Signs Vital Signs - First Documented 01/31/23 01/31/23 01/31/23 17:18 19:30 19:48 Temp 36.4 Pulse 84 Resp 16 B/P (MAP) 130/68 (88) Pulse Ox 94 O2 Delivery Room Air O2 Flow Rate 4.00 FiO2 21 Capillary Refill : Less Than 3 Seconds Height, Weight, BMI Height: 5'7" Weight: 350lbs. 0.0oz. 158.299572ci; 32.07 BMI Method:Stated General Appearance: No Apparent Distress, Chronically ill, Obese Eyes: Right Eye Normal Inspection, Right Eye PERRL HEENT: PERRL/EOMI, Normal ENT Inspection, Pharynx Normal, Moist Mucous Membranes Neck: Full Range of Motion, Normal Inspection, Non Tender Respiratory: Chest Non Tender, Lungs Clear, Normal Breath Sounds, No Accessory Muscle Use, No Respiratory Distress Cardiovascular: Regular Rate, Rhythm, No Edema, No Gallop, No JVD, No Murmur, Normal Peripheral Pulses Gastrointestinal: Normal Bowel Sounds, No Organomegaly, No Pulsatile Mass, Non Tender, Soft Back: Normal Inspection, No CVA Tenderness, No Vertebral Tenderness Extremity: Normal Capillary Refill, Normal Inspection, Normal Range of Motion (Except bilateral knees), Non Tender, No Calf Tenderness, No Pedal Edema Neurologic/Psychiatric: Alert, Oriented x3, No Motor/Sensory Deficits, rn field II- XII Norm as Tested, Abnormal Gait, Depressed Affect, Motor Weakness ( generalized and lower extremities) Skin: Normal Color, Warm/Dry Lymphatic: No Adenopathy Results Results/Procedures Labs Laboratory Tests 01/31/23 18:03 02/01/23 05:22 Patient resulted labs reviewed. Assessment/Plan Admission Diagnosis Assessment: Unable to ambulate due to knee pain and morbid obesity Bilateral knee pain severe osteoarthritis Shortness of breath due to exacerbation of COPD Current smoker Hypertension Hyperlipidemia Plan: Pain meds IV steroids Albuterol IV antibiotics Admission Status: Observation ROSIE REBOLLEDO DO Feb 01, 2023 07:54
[2023-02-01] MEDS: SENNOSIDES 8.6 MG (SENOKOT) TAB PO SCH ×2 (08:01→20:38)
[2023-02-01] MEDS: DOCUSATE SODIUM 100 MG CAPSULE PO SCH ×2 (08:01→20:38)
[2023-02-01] MEDS: RT-LEVALBUTEROL 1.25 MG/3 ML NEBS (NON-FORMULARY) INH SCH ×3 (08:02→22:05)
[2023-02-01] MEDS ORDERED: [UNRECOGNIZED DRUG - CODE] PO (08:10)
[2023-02-01] MEDS ORDERED: [UNRECOGNIZED DRUG - CODE] PO (08:10)
[2023-02-01] MEDS ORDERED: ROSU10TA28 PO (08:10)
[2023-02-01] MEDS ORDERED: CINN500C2 PO (08:10)
[2023-02-01] MEDS ORDERED: VITA1CAP16 PO (08:10)
[2023-02-01] MEDS: ONDANSETRON 4 MG/2 ML (SDV) Z0FRAN IV PRN (08:16)
[2023-02-01] MEDS ORDERED: NICOTINE 21 MG PATCH TD PRN (12:15)
[2023-02-01] MEDS ORDERED: NICOTINE PATCH REMOVAL TP PRN (12:45)
[2023-02-01] MEDS ORDERED: PATIENT MAY USE OWN MEDS, ALL MC SCH (13:15)
[2023-02-01] MEDS: FLUTICASONE 200 MCG IH SCH (14:29)
[2023-02-01] MEDS: POTASSIUM CHLORIDE 20 MEQ TABLET PO SCH (17:07)
[2023-02-01] MEDS: FUROSEMIDE 40 MG TABLET PO SCH (17:07)
[2023-02-01] MEDS: ROSUVASTATIN 10 MG (CRESTOR) TABLET PO SCH (20:39)
[2023-02-02] VITALS (8 sets, daily range): BP systolic 85–155; BP diastolic 48–79
[2023-02-02 05:17] LABS: BASOPHILS % (AUTO) 0 % (0-10); EOSINOPHILS % (AUTO) 0 % (0-10); HEMATOCRIT 41 % (35-52); HEMOGLOBIN 13.3 g/dL (11.5-16.0); LYMPHOCYTES # (AUTO) 1.8 10^3/uL (1.0-4.0); LYMPHOCYTES % (AUTO) 13 % (12-44); MEAN CORPUSCULAR HEMOGLOBIN 30 pg (25-34); MEAN CORPUSCULAR HGB CONC 33 g/dL (32-36); MEAN CORPUSCULAR VOLUME 93 fL (80-99); MEAN PLATELET VOLUME 10.1 fL (9.0-12.2); MONOCYTES # (AUTO) 0.8 10^3/uL (0.0-1.0); MONOCYTES % (AUTO) 6 % (0-12); NEUTROPHILS # (AUTO) 11.1 10^3/uL (1.8-7.8); NEUTROPHILS % (AUTO) 81 % (42-75); PLATELET COUNT 234 10^3/uL (130-400); WHITE BLOOD COUNT 13.7 10^3/uL (4.3-11.0)
[2023-02-02] MEDS: [UNRECOGNIZED DRUG - OTHER] PO SCH (05:24)
[2023-02-02] MEDS: ASCORBIC ACID PO SCH (05:24)
[2023-02-02] MEDS: ONDANSETRON 4 MG/2 ML (SDV) Z0FRAN IV PRN (05:24)
[2023-02-02 05:27] LABS: ALBUMIN 3.4 GM/DL (3.2-4.5); POTASSIUM 4.2 MMOL/L (3.6-5.0)
[2023-02-02 05:28] LABS: CALCIUM 9.6 MG/DL (8.5-10.1)
[2023-02-02 05:29] LABS: TOTAL PROTEIN 7.6 GM/DL (6.4-8.2)
[2023-02-02 05:31] LABS: BILIRUBIN,TOTAL 0.4 MG/DL (0.1-1.0)
[2023-02-02 05:33] LABS: CREATININE SERUM 1.03 MG/DL (0.60-1.30)
[2023-02-02] MEDS ORDERED: THERAPEUTIC MULTIVITAMIN W/MINERALS TABLET PO SCH (07:00)
[2023-02-02] MEDS: RT-LEVALBUTEROL 1.25 MG/3 ML NEBS (NON-FORMULARY) INH SCH ×3 (08:14→21:38)
[2023-02-02] MEDS: ENOXAPARIN 40 MG/0.4 ML SYRINGE SC SCH (08:57)
[2023-02-02] MEDS: dexAMETHasone INJ 4 MG/ML SDV IV SCH ×2 (08:57→19:32)
[2023-02-02] MEDS: CEYLON CINNAMON PO SCH (08:59)
[2023-02-02] MEDS ORDERED: NON-FORMULARY MEDICATION 1 EA EA (Enalapril Maleate 20 MG) PO SCH (09:00)
[2023-02-02] MEDS: CETIRIZINE 10 MG TAB PO SCH (09:00)
[2023-02-02] MEDS ORDERED: NON-FORMULARY MEDICATION 1 EA EA (Omega-3/Dha/Epa/Fish Oil (Fish Oil 1,400 mg Softgel) 1 E PO SCH (09:00)
[2023-02-02] MEDS: FISH OIL 1400 MG PO SCH (09:00)
[2023-02-02] MEDS ORDERED: NON-FORMULARY MEDICATION 1 EA EA (Cetirizine HCl 5 MG) PO SCH (09:00)
[2023-02-02] MEDS ORDERED: NON-FORMULARY MEDICATION 1 EA EA (Vitamin B Complex & Vit C No.3 (B Complex with Vitamin C PO SCH (09:00)
[2023-02-02] MEDS ORDERED: ENALAPRIL 10 MG TABLET PO SCH (09:00)
[2023-02-02] MEDS ORDERED: CINNAMON BARK 1200 MG PO SCH (09:00)
[2023-02-02] MEDS ORDERED: LORATADINE 10 MG TABLET PO SCH (09:00)
[2023-02-02] MEDS ORDERED: OMEGA 3 (FISH OIL) 1000 MG CAP PO SCH (09:00)
[2023-02-02] MEDS ORDERED: NON-FORMULARY MEDICATION 1 EA EA (Cholecalciferol (Vitamin D3) (Vitamin D3) 125 MCG) PO SCH (09:00)
[2023-02-02] MEDS: DOCUSATE SODIUM 100 MG CAPSULE PO SCH ×2 (09:02→19:31)
[2023-02-02] MEDS: ASPIRIN 325 MG TABLET PO SCH (09:02)
[2023-02-02] MEDS: VITAMIN D3 125 MCG (5,000 UNITS) TABLET PO SCH (09:03)
[2023-02-02] MEDS: ENALAPRIL 20 MG TAB PO SCH (09:03)
[2023-02-02] MEDS: SENNOSIDES 8.6 MG (SENOKOT) TAB PO SCH ×2 (09:03→19:30)
--- NOTE | 2023-02-02 10:25 | Physical Therapy Evaluation ---
PT Evaluation-General Medical Diagnosis Admission Date Jan 31, 2023 at 19:07 Medical Diagnosis: intractable pain (unable to care for self) Onset Date: Jan 31, 2023 Therapy Diagnosis Therapy Diagnosis: debility/weakness Height/Weight Height (Feet): 5 Height (Inches): 7 Weight (Pounds): 350 Weight (Ounces): 0.0 Precautions Precautions/Isolations: Standard Precautions Weight Bear Status Right Lower Extremity: Right Non Weight Bearing Left Lower Extremity: Left Non Weight Bearing Referral Physician: Kesha Reason for Referral: Evaluation/Treatment Medical History Pertinent Medical History: COPD, HTN, Smoking Additional Medical History morbid obesity Current History EMS secondary to right knee pain and inability to care for self Reviewed History: Yes Prior Prior Level of Function SCALE: Activities may be completed with or without assistive devices. 0-Ipqlnkekrq-alwbfep completes the activity by him/herself with no assistance from a helper. 5-Set-up or Clean-up Assistance-helper sets up or cleans up; patient completes activity. [place] assists only prior to or following the activity. 4-Supervision or Touching Assistance-helper provides verbal cues and/or touching/steadying and/or contact guard assistance as patient completes activity. Assistance may be provided throughout the activity or intermittently. 3-Partial/Moderate Assistance-helper does LESS THAN HALF the effort. [place] lifts, holds or supports trunk or limbs, but provides less than half the effort. 2-Substantial/Maximal Assistance-helper does MORE THAN HALF the effort. [place] lifts or holds trunk or limbs and provides more than half the effort. 0-Uomgabcen-aooxxg does ALL the effort. Patient does none of the effort to complete the activity. Or, the assistance of 2 or more helpers is required for the patient to complete the activity. If activity was not attempted, code reason: 7-Patient Refused. 9-Not Applicable-not attempted and the patient did not perform the activity before the current illness, exacerbation or injury. 10-Not Attempted due to Environmental Limitations-(lack of equipment, weather restraints, etc.). 88-Not Attempted due to Medical Conditions or Safety Concerns. Bed Mobility: 6 Transfers (B,C,W/C): 6 Gait: 9 Stairs: 9 Indoor Mobility (Ambulation): Not [place] Prior Devices Use: Motorized scooter PT Evaluation-Current Subjective Patient agrees to PT. Objective Patient Orientation: Normal For Age Attachments: Oxygen, Venegas Catheter ROM/Strength ROM Lower Extremities bilateral LE WFL Strength Lower Extremities 3/5 grossly bilateral LE all planes Integumentary/Posture Bladder Incontinence: Venegas Cath Neuromuscular (Tone, Coordination, Reflexes) grossly intact Sensory Vision: Functional Hearing: Functional Transfers Roll Left to Right (QC): 4 Sit to Lying (QC): 4 Lying to Sitting/Side of Bed(Q: 4 Sit to Stand (QC): 88 Gait Does the Patient Walk?: No and Walking Goal NOT indicated Balance Sitting Static: Fair Sitting Dynamic: Fair Assessment/Needs Patient will require a Kristin lift for all transfers due to inability to stand to FWW. Patient attempt to perform this x 4 sets. Patient will be seen short term by skilled PT to address functional strength and mobility to improve current LOF. Rehab Potential: Fair PT Usp Goals Usp Goals PT Propeller Driven Airplane Mechanic Goals Time Frame: Feb 14, 2023 Roll Left & Right (QC): 6 Sit to Lying (QC): 6 Lying-Sitting on Side/Bed(QC): 6 PT Plan Problem List Problem List: Activity Tolerance, Functional Strength, Balance, Transfer, Bed Mobility Treatment/Plan Treatment Plan: Continue Plan of Care Treatment Plan: Bed Mobility, Education, Functional Activity Marisa, Functional Strength, Safety, Therapeutic Exercise, Transfers Treatment Duration: Feb 14, 2023 Frequency: 5 times per week Estimated Hrs Per Day: .25 hour per day Time Time In: 915 Time Out: 935 DATE: Feb 02, 2023 Total Billed Treatment Time: 20 [facility] ROJELIO YOUSSEF [facility] Feb 02, 2023 10:25
[2023-02-02] MEDS ORDERED: CALC-250 PO (11:26)
[2023-02-02] MEDS: FLUTICASONE 200 MCG IH SCH (13:25)
--- NOTE | 2023-02-02 14:16 | Progress Note ---
Subjective Subjective/Events-last exam Patient states she is feeling okay, but feels like she is just continuing to fall apart even more since admission. Objective Exam Last Set of Vital Signs Vital Signs Date Time Temp Pulse Resp B/P (MAP) Pulse Ox O2 Delivery O2 Flow Rate FiO2 02/02/23 11:05 36.8 75 18 102/55 (71) 94 Nasal Cannula 3.00 01/31/23 19:48 21 Capillary Refill : Less Than 3 Seconds I&O Intake and Output 02/01/23 23:59 Intake Total 2420 ml Output Total 1200 ml Balance 1220 ml Intake Oral 2420 ml Output Urine Total 1200 ml # Bowel Movements 1 General: Alert, No Acute Distress Lungs: Clear to Auscultation Heart: Regular Rate, Other (4/6 systolic high pitched murmur) Abdomen: Normal Bowel Sounds, Soft, No Tenderness Extremities: Other (2+ pitting edema) Skin: Other (rectangular shaped erythematous patch on left anterior arce about 7 x 5 cm with peeling skin overlying) Neuro: Normal Speech Psych/Mental Status: Mood NL Other physical findings Right knee with no erythema, no palpable effusion, no pain to palpation medial or lateral joint line or patellar movement Results/Procedures Lab Laboratory Tests 02/02/23 04:55: White Blood Count 13.7H, Red Blood Count 4.37, Hemoglobin 13.3, Hematocrit 41, Mean Corpuscular Volume 93, Mean Corpuscular Hemoglobin 30, Mean Corpuscular Hemoglobin Concent 33, Red Cell Distribution Width 13.2, Platelet Count 234, Mean Platelet Volume 10.1, Immature Granulocyte % (Auto) 1, Neutrophils (%) (Auto) 81H, Lymphocytes (%) (Auto) 13, Monocytes (%) (Auto) 6, Eosinophils (%) (Auto) 0, Basophils (%) (Auto) 0, Neutrophils # (Auto) 11.1H, Lymphocytes # (Auto) 1.8, Monocytes # (Auto) 0.8, Eosinophils # (Auto) 0.0, Basophils # (Auto) 0.0, Immature Granulocyte # (Auto) 0.1, Sodium Level 142, Potassium Level 4.2, Chloride Level 106, Carbon Dioxide Level 25, Anion Gap 11, Blood Urea Nitrogen 31H, Creatinine 1.03, Estimat Glomerular Filtration Rate 59, BUN/Creatinine Ratio 30, Glucose Level 179H, Calcium Level 9.6, Corrected Calcium 10.1, Total Bilirubin 0.4, Aspartate Amino Transf (AST/SGOT) 15, Alanine Aminotransferase (ALT/SGPT) 14, Alkaline Phosphatase 73, Total Protein 7.6, Albumin 3.4 Assessment/Plan Assessment/Plan (1) Unable to care for self Status: Acute Assessment & Plan: Unable to ambulate due to pain and weakness in legs. PT, OT eval. Likely SNF on d/c. (2) Hypoxia Status: Acute Assessment & Plan: CXR with pulmonary vascular congestion, echo pending. (3) Candidal intertrigo Status: Acute Assessment & Plan: Nystatin (4) Hypertension Status: Chronic (5) Hyperlipidemia Status: Chronic (6) Obesity (BMI 30.0-34.9) Status: Chronic (7) Osteoarthritis of right knee Status: Chronic Assessment & Plan: Acute on chronic right knee pain limiting ability to transfer, xray with osteoarthritis. (8) DVT prophylaxis Status: Acute Assessment & Plan: Enoxaparin ELENI SINGH MD Feb 02, 2023 14:16
[2023-02-02] MEDS: FUROSEMIDE 40 MG TABLET PO SCH (17:03)
[2023-02-02] MEDS: POTASSIUM CHLORIDE 20 MEQ TABLET PO SCH (17:03)
[2023-02-02] MEDS: ROSUVASTATIN 10 MG (CRESTOR) TABLET PO SCH (19:31)
[2023-02-02] MEDS: MONTELUKAST 10 MG TABLET PO SCH (19:31)
[2023-02-02] MEDS: cefTRIAXone IV/IM 1,000 MG in NS (IVPB) 50 ML 50 ML IV SCH (19:32)
[2023-02-02] MEDS: NYSTATIN OINTMENT 30 GM TUBE TOP SCH (19:35)
[2023-02-03 03:05] VITALS: BP 123/63
[2023-02-03 05:29] LABS: BASOPHILS % (AUTO) 0 % (0-10); EOSINOPHILS % (AUTO) 0 % (0-10); HEMATOCRIT 40 % (35-52); HEMOGLOBIN 13.2 g/dL (11.5-16.0); LYMPHOCYTES # (AUTO) 1.5 10^3/uL (1.0-4.0); LYMPHOCYTES % (AUTO) 11 % (12-44); MEAN CORPUSCULAR HEMOGLOBIN 31 pg (25-34); MEAN CORPUSCULAR HGB CONC 33 g/dL (32-36); MEAN CORPUSCULAR VOLUME 94 fL (80-99); MEAN PLATELET VOLUME 10.2 fL (9.0-12.2); MONOCYTES # (AUTO) 1.1 10^3/uL (0.0-1.0); MONOCYTES % (AUTO) 8 % (0-12); NEUTROPHILS # (AUTO) 11.3 10^3/uL (1.8-7.8); NEUTROPHILS % (AUTO) 81 % (42-75); PLATELET COUNT 228 10^3/uL (130-400)
[2023-02-03] MEDS: ASCORBIC ACID PO SCH (05:33)
[2023-02-03] MEDS: [UNRECOGNIZED DRUG - OTHER] PO SCH (05:33)
[2023-02-03 05:43] LABS: ALBUMIN 3.3 GM/DL (3.2-4.5); POTASSIUM 4.3 MMOL/L (3.6-5.0)
[2023-02-03 05:44] LABS: CALCIUM 9.3 MG/DL (8.5-10.1)
[2023-02-03 05:45] LABS: TOTAL PROTEIN 7.2 GM/DL (6.4-8.2)
[2023-02-03 05:47] LABS: BILIRUBIN,TOTAL 0.5 MG/DL (0.1-1.0)
[2023-02-03 05:49] LABS: CREATININE SERUM 0.99 MG/DL (0.60-1.30)
[2023-02-03] MEDS: RT-LEVALBUTEROL 1.25 MG/3 ML NEBS (NON-FORMULARY) INH SCH ×3 (07:28→21:44)
[2023-02-03] MEDS: FLUTICASONE 200 MCG IH SCH (07:32)
[2023-02-03 07:49] VITALS: BP 118/57
[2023-02-03] MEDS: NYSTATIN OINTMENT 30 GM TUBE TOP SCH ×2 (08:46→19:13)
[2023-02-03] MEDS: CEYLON CINNAMON PO SCH (08:47)
[2023-02-03] MEDS: FISH OIL 1400 MG PO SCH (08:47)
[2023-02-03] MEDS: ASPIRIN 325 MG TABLET PO SCH (08:48)
[2023-02-03] MEDS: VITAMIN D3 125 MCG (5,000 UNITS) TABLET PO SCH (08:48)
[2023-02-03] MEDS: SENNOSIDES 8.6 MG (SENOKOT) TAB PO SCH ×2 (08:49→19:12)
[2023-02-03] MEDS: ENALAPRIL 20 MG TAB PO SCH (08:49)
[2023-02-03] MEDS: DOCUSATE SODIUM 100 MG CAPSULE PO SCH ×2 (08:50→19:12)
[2023-02-03] MEDS: ENOXAPARIN 40 MG/0.4 ML SYRINGE SC SCH (08:50)
[2023-02-03] MEDS: CETIRIZINE 10 MG TAB PO SCH (08:50)
[2023-02-03] MEDS: dexAMETHasone INJ 4 MG/ML SDV IV SCH (08:51)
--- NOTE | 2023-02-03 09:53 | Occupational Therapy Eval ---
OT Evaluation-General/PLF Medical Diagnosis Admission Date Jan 31, 2023 at 19:07 Medical Diagnosis: intractable pain (unable to care for self) Onset Date: Jan 31, 2023 Therapy Diagnosis Therapy Diagnosis: weakness, debility Height/Weight Height (Feet): 5 Height (Inches): 7 Weight (Pounds): 350 Weight (Ounces): 0.0 Precautions Precautions/Isolations: Standard Precautions Referral Physician: Kesha Referral Reason: Activity Tolerance, Self Care, Evaluation/Treatment, Strengthening/ROM Medical History Pertinent Medical History: COPD, HTN, Smoking Social History Home: Apartment Current Living Status: Alone Entry Into Home: Level Entry ADL-Prior Level of Function SCALE: Activities may be completed with or without assistive devices. 9-Kbwpqbawlk-hvnzwan completes the activity by him/herself with no assistance from a helper. 5-Set-up or Clean-up Assistance-helper sets up or cleans up; patient completes activity. [place] assists only prior to or following the activity. 4-Supervision or Touching Assistance-helper provides verbal cues and/or touching/steadying and/or contact guard assistance as patient completes activity. Assistance may be provided throughout the activity or intermittently. 3-Partial/Moderate Assistance-helper does LESS THAN HALF the effort. [place] lifts, holds or supports trunk or limbs, but provides less than half the effort. 2-Substantial/Maximal Assistance-helper does MORE THAN HALF the effort. [place] lifts or holds trunk or limbs and provides more than half the effort. 5-Uyjhfdssx-opkuvu does ALL the effort. Patient does none of the effort to complete the activity. Or, the assistance of 2 or more helpers is required for the patient to complete the activity. If activity was not attempted, code reason: 7-Patient Refused. 9-Not Applicable-not attempted and the patient did not perform the activity before the current illness, exacerbation or injury. 10-Not Attempted due to Environmental Limitations-(lack of equipment, weather restraints, etc.). 88-Not Attempted due to Medical Conditions or Safety Concerns. ADL PLOF Comments Uses electric power chair, transfer from bed to chair with out ADS, uses GB to regular toilet, bathes in bed/recliner w/ occasional assist from daughter when patient allows assistance, does transfer to a lift chair and usually sleeps in recliner. Has a grabber/director business management Self Care: Needed Some Help (Changes clothes when soiled) Functional Cognition: Independent DME/Equipment: [address] Self: No OT Current Status Subjective Resting in bed, agreeable to OT Pain Numeric Pain Scale: 0-No Pain Mental Status/Objective Patient Orientation: Person, Place, Time, Situation Attachments: Venegas Catheter Current Glasses/Contacts: No Hearing Aids: No Dentures/Partials: Yes Hand Dominance: Right Upper Extremity ROM LUE limited against gravity, supine is able to reach above head and pull on head board to mobilize in bed RUE WFLS Upper Extremity Coordination FAIR + Upper Extremity Strength RUE -4?5, LUE +2/5 Fell backwards out of a semi truck on LUE, injury to shoulder resulting in limited mobility ADL-Treatment Eating (QC): 6 Oral Hygiene (QC): 5 Shower/Bathe Self (QC): 1 Upper Body Dressing (QC): 3 Lower Body Dressing (QC): 1 On/Off Footwear (QC): 1 Toileting Hygiene (QC): 1 Patient encouraged to sit EOB for meals to increase core strength and activity tolerance Education OT Patient Education: Correct positioning, Exercise program, Modified ADL techniques, Progress toward Goal/Update tx plan, Purpose of tx/functional activities, Reviewed precautions, Rehab process, Safety issues, Transfer techniques Teaching Recipient: Patient Teaching Methods: Demonstration, Discussion Response to Teaching: Verbalize Understanding, Reinforcement Needed OT Drill Operator Automatic Goals Skilled Nursing Goals Eating (QC): 6 Oral Hygiene (QC): 6 Toileting Hygiene (QC): 4 Shower/Bathe Self (QC): 3 Upper Body Dressing (QC): 4 Lower Body Dressing (QC): 3 1=Demonstrate adherence to instructed precautions during ADL tasks. 2=Patient will verbalize/demonstrate understanding of assistive devices/modifications for ADL. 3=Patient will improve strength/tolerance for activity to enable patient to perform ADL's. OT Education/Plan Problem List/Assessment Assessment: Decreased Activ Tolerance, Decreased Safety Aware, Decreased UE Strength, Dependent Transfers, Impaired Bed Mobility, Impaired Coordination, Impaired Funct Balance, Impaired Self-Care Skills, Restricted Funct UE ROM Discharge Recommendations Plan/Recommendations: Continue POC Therapy Discharge Recommendati: Post Acute OT Treatment Plan/Plan of Care Treatment,Training & Education: Yes Patient would benefit from OT for education, treatment and training to promote independence in ADL's, mobility, safety and/or upper extremity function for ADL's. Plan of Care: ADL Retraining, Concurrent Therapy, Functional Mobility, Group Exercise/Act as Ind, UE Funct Exercise/Act, UE Neuromus Re-Ed/Coord Comment All needs met Treatment Duration: Feb 03, 2023 Frequency: 3 times per week (3-5 times per week) Agreement: Yes Rehab Potential: Fair Time Start Time: 09:40 Stop Time: 10:00 DATE: Feb 03, 2023 Total Time Billed (hr/min): 20 Billed Treatment Time [facility] 20 min QUITA ROCHE OT Feb 03, 2023 09:53
--- NOTE | 2023-02-03 11:41 | Physical Therapy Daily Note ---
PT Daily Note-Current Subjective Patient agrees to therapy. Pain Section J - Health Conditions 1. Rarely or not at all 2. Occasionally 3. Frequently 4. Almost constantly 8. Unable to answer Pain Effect on Sleep: 1 Pain Interference with Therapy: 1 Pain Interference w/Day-to-Day: 1 Mental Status Attachments: Oxygen, Venegas Catheter Transfers SCALE: Activities may be completed with or without assistive devices. 4-Gyanhrlpyr-rlvcnzf completes the activity by him/herself with no assistance from a helper. 5-Set-up or Clean-up Assistance-helper sets up or cleans up; patient completes activity. [place] assists only prior to or following the activity. 4-Supervision or Touching Assistance-helper provides verbal cues and/or touching/steadying and/or contact guard assistance as patient completes activity. Assistance may be provided throughout the activity or intermittently. 3-Partial/Moderate Assistance-helper does LESS THAN HALF the effort. [place] lifts, holds or supports trunk or limbs, but provides less than half the effort. 2-Substantial/Maximal Assistance-helper does MORE THAN HALF the effort. [place] lifts or holds trunk or limbs and provides more than half the effort. 9-Nnugkpjoo-xbwwgk does ALL the effort. Patient does none of the effort to complete the activity. Or, the assistance of 2 or more helpers is required for the patient to complete the activity. If activity was not attempted, code reason: 7-Patient Refused. 9-Not Applicable-not attempted and the patient did not perform the activity before the current illness, exacerbation or injury. 10-Not Attempted due to Environmental Limitations-(lack of equipment, weather restraints, etc.). 88-Not Attempted due to Medical Conditions or Safety Concerns. Roll Left & Right (QC): 4 Sit to Lying (QC): 3 Lying to Sitting/Side of Bed(Q: 3 patient sat EOB for several minutes Weight Bearing Right Lower Extremity: Right Non Weight Bearing Left Lower Extremity: Left Non Weight Bearing Assessment Patient tolerates minimal activity and has been instructed to sit EOB for meals. Patient continues to be unable to perform sit to stand and will require Kristin lift for safe transfers. PT Halfway Goals Pick Up Worker Goals PT Pick Up Worker Goals Time Frame: Feb 14, 2023 Roll Left & Right (QC): 6 Sit to Lying (QC): 6 Lying-Sitting on Side/Bed(QC): 6 PT Plan Treatment/Plan Treatment Plan: Continue Plan of Care Treatment Plan: Bed Mobility, Education, Functional Activity Marisa, Functional Strength, Safety, Therapeutic Exercise, Transfers Treatment Duration: Feb 14, 2023 Frequency: 5 times per week Estimated Hrs Per Day: .25 hour per day Time Time In: 925 Time Out: 939 DATE: Feb 03, 2023 Total Billed Treatment Time: 14 Total Billed Treatment 1 visit FA 14 min ROJELIO YOUSSEF PT Feb 03, 2023 11:41
[2023-02-03 11:58] VITALS: BP 128/59
--- NOTE | 2023-02-03 13:04 | Progress Note ---
Subjective Subjective/Events-last exam Pt states she is feeling okay. Hasn't had a BM in two days. Remains on 3 lpm supplemental oxygen. Has some pain behind knee, otherwise feeling okay. Objective Exam Last Set of Vital Signs Vital Signs Date Time Temp Pulse Resp B/P (MAP) Pulse Ox O2 Delivery O2 Flow Rate FiO2 02/03/23 11:58 36.8 69 19 128/59 (82) 94 Nasal Cannula 3.00 01/31/23 19:48 21 Capillary Refill : Less Than 3 Seconds I&O Intake and Output 02/02/23 23:59 Intake Total 1750 ml Output Total 1100 ml Balance 650 ml Intake Oral 1750 ml Output Urine Total 1100 ml General: Alert, No Acute Distress Lungs: Clear to Auscultation Heart: Regular Rate, Other (systlic murmur) Abdomen: Normal Bowel Sounds, Other (distended, diffuse ttp) Extremities: Other (2+ pitting edema feet, 1+ lower legs, erythema to right arce improved from yesterday) Neuro: Normal Speech Psych/Mental Status: Mood NL Results/Procedures Lab Laboratory Tests 02/03/23 05:00: White Blood Count 14.0H, Red Blood Count 4.29, Hemoglobin 13.2, Hematocrit 40, Mean Corpuscular Volume 94, Mean Corpuscular Hemoglobin 31, Mean Corpuscular Hemoglobin Concent 33, Red Cell Distribution Width 13.2, Platelet Count 228, Mean Platelet Volume 10.2, Immature Granulocyte % (Auto) 0, Neutrophils (%) (Auto) 81H, Lymphocytes (%) (Auto) 11L, Monocytes (%) (Auto) 8, Eosinophils (%) (Auto) 0, Basophils (%) (Auto) 0, Neutrophils # (Auto) 11.3H, Lymphocytes # (Auto) 1.5, Monocytes # (Auto) 1.1H, Eosinophils # (Auto) 0.0, Basophils # (Auto) 0.0, Immature Granulocyte # (Auto) 0.1, Sodium Level 140, Potassium Level 4.3, Chloride Level 106, Carbon Dioxide Level 24, Anion Gap 10, Blood Urea Nitrogen 36H, Creatinine 0.99, Estimat Glomerular Filtration Rate 62, BUN/Creatinine Ratio 36, Glucose Level 156H, Calcium Level 9.3, Corrected Calcium 9.9, Total Bilirubin 0.5, Aspartate Amino Transf (AST/SGOT) 11, Alanine Aminotransferase (ALT/SGPT) 10, Alkaline Phosphatase 65, Total Protein 7.2, Albumin 3.3 Assessment/Plan Assessment/Plan (1) Unable to care for self Status: Acute Assessment & Plan: Unable to ambulate due to pain and weakness in legs. PT, OT eval. Likely SNF on d/c. (2) Hypoxia Status: Acute Assessment & Plan: CXR with pulmonary vascular congestion, echo with normal EF, severe concentric hypertrophy and aortic sclerosis. Continue home lasix. Possible obesity hypoventilation contributing. (3) Candidal intertrigo Status: Acute Assessment & Plan: Nystatin (4) Hypertension Status: Chronic (5) Hyperlipidemia Status: Chronic (6) Obesity (BMI 30.0-34.9) Status: Chronic (7) Osteoarthritis of right knee Status: Chronic Assessment & Plan: Acute on chronic right knee pain limiting ability to transfer, xray with osteoarthritis. (8) Aortic valve sclerosis Status: Chronic (9) DVT prophylaxis Status: Acute Assessment & Plan: Enoxaparin ELENI SINGH MD Feb 03, 2023 13:04
[2023-02-03 15:24] VITALS: BP 109/55
[2023-02-03] MEDS: POTASSIUM CHLORIDE 20 MEQ TABLET PO SCH (18:50)
[2023-02-03] MEDS: FUROSEMIDE 40 MG TABLET PO SCH (18:50)
[2023-02-03] MEDS: MONTELUKAST 10 MG TABLET PO SCH (19:12)
[2023-02-03] MEDS: ROSUVASTATIN 10 MG (CRESTOR) TABLET PO SCH (19:13)
[2023-02-03 19:36] VITALS: BP 113/67
[2023-02-03 23:36] VITALS: BP 111/70
[2023-02-04 03:30] VITALS: BP 102/68
[2023-02-04] MEDS: ASCORBIC ACID PO SCH (05:40)
[2023-02-04] MEDS: [UNRECOGNIZED DRUG - OTHER] PO SCH (05:40)
[2023-02-04 05:54] LABS: BASOPHILS # (AUTO) 0.1 10^3/uL (0.0-0.1); BASOPHILS % (AUTO) 0 % (0-10); EOSINOPHILS # (AUTO) 0.3 10^3/uL (0.0-0.3); EOSINOPHILS % (AUTO) 2 % (0-10); HEMATOCRIT 45 % (35-52); HEMOGLOBIN 14.5 g/dL (11.5-16.0); LYMPHOCYTES # (AUTO) 1.6 10^3/uL (1.0-4.0); LYMPHOCYTES % (AUTO) 11 % (12-44); MEAN CORPUSCULAR HEMOGLOBIN 30 pg (25-34); MEAN CORPUSCULAR HGB CONC 33 g/dL (32-36); MEAN CORPUSCULAR VOLUME 92 fL (80-99); MEAN PLATELET VOLUME 10.1 fL (9.0-12.2); MONOCYTES # (AUTO) 1.1 10^3/uL (0.0-1.0); MONOCYTES % (AUTO) 8 % (0-12); NEUTROPHILS # (AUTO) 10.9 10^3/uL (1.8-7.8); NEUTROPHILS % (AUTO) 78 % (42-75); PLATELET COUNT 247 10^3/uL (130-400)
[2023-02-04 06:09] LABS: ALBUMIN 3.5 GM/DL (3.2-4.5)
[2023-02-04 06:10] LABS: CALCIUM 9.9 MG/DL (8.5-10.1)
[2023-02-04 06:11] LABS: TOTAL PROTEIN 7.6 GM/DL (6.4-8.2)
[2023-02-04 06:13] LABS: BILIRUBIN,TOTAL 0.7 MG/DL (0.1-1.0)
[2023-02-04 06:15] LABS: CREATININE SERUM 1.05 MG/DL (0.60-1.30)
[2023-02-04 06:23] LABS: EOSINOPHILS % (MANUAL) 2 %; LYMPHOCYTES % (MANUAL) 9 %; MONOCYTES % (MANUAL) 6 %; NEUTROPHILS % (MANUAL) 79 %; REACTIVE LYMPHOCYTES 4 %
[2023-02-04] MEDS ORDERED: predniSONE 20 MG TAB PO SCH (07:00)
[2023-02-04] MEDS: RT-LEVALBUTEROL 1.25 MG/3 ML NEBS (NON-FORMULARY) INH SCH (07:21)
[2023-02-04] MEDS: FLUTICASONE 200 MCG IH SCH (07:23)
[2023-02-04 07:56] VITALS: BP 118/57
[2023-02-04] MEDS ORDERED: FUROSEMIDE INJECTION 40 MG/4 ML VIAL IVP NR (08:00)
[2023-02-04] MEDS: CEYLON CINNAMON PO SCH (09:12)
[2023-02-04] MEDS: FISH OIL 1400 MG PO SCH (09:13)
[2023-02-04] MEDS: ENALAPRIL 20 MG TAB PO SCH (09:14)
[2023-02-04] MEDS: DOCUSATE SODIUM 100 MG CAPSULE PO SCH (09:14)
[2023-02-04] MEDS: CETIRIZINE 10 MG TAB PO SCH (09:14)
[2023-02-04] MEDS: ASPIRIN 325 MG TABLET PO SCH (09:14)
[2023-02-04] MEDS: ENOXAPARIN 40 MG/0.4 ML SYRINGE SC SCH (09:15)
[2023-02-04] MEDS: VITAMIN D3 125 MCG (5,000 UNITS) TABLET PO SCH (09:15)
[2023-02-04] MEDS: SENNOSIDES 8.6 MG (SENOKOT) TAB PO SCH (09:15)
[2023-02-04] MEDS: NYSTATIN OINTMENT 30 GM TUBE TOP SCH (09:15)
[2023-02-04 11:27] VITALS: BP 113/56
--- NOTE | 2023-02-04 11:55 | Discharge Summary ---
Discharge Summary Hospital Course Hospital Course Date of Admission: Jan 31, 2023 at 19:07 Admission Diagnosis : Unable to ambulate due to knee pain and morbid obesity Bilateral knee pain severe osteoarthritis Shortness of breath due to exacerbation of COPD Current smoker Hypertension Hyperlipidemia [facility] Date of Discharge: 02/04/23 Discharge Diagnosis: See problem list Hospital Course: 67 yo female admitted after she was unable to get up from toilet and had to call for help, severe right knee pain and morbid obesity, previously able to transfer. Knee xray showed osteoarthritis. She also had hypoxia, suspected combination of COPD exacerbation and obesity hypoventilation, remained stable on 3 lpm throughout stay. Treated with prednisone for COPD exacerbation. PT evaluated and worked with her, and she was discharged to intermediate to work on continued improved mobility. Labs and Pending Lab Test: Laboratory Tests 02/04/23 05:15: White Blood Count 14.0H, Red Blood Count 4.82, Hemoglobin 14.5, Hematocrit 45, Mean Corpuscular Volume 92, Mean Corpuscular Hemoglobin 30, Mean Corpuscular Hemoglobin Concent 33, Red Cell Distribution Width 13.1, Platelet Count 247, Mean Platelet Volume 10.1, Immature Granulocyte % (Auto) 1, Neutrophils (%) (Auto) 78H, Lymphocytes (%) (Auto) 11L, Monocytes (%) (Auto) 8, Eosinophils (%) (Auto) 2, Basophils (%) (Auto) 0, Neutrophils # (Auto) 10.9H, Lymphocytes # (Auto) 1.6, Monocytes # (Auto) 1.1H, Eosinophils # (Auto) 0.3, Basophils # (Auto) 0.1, Immature Granulocyte # (Auto) 0.1, Neutrophils % (Manual) 79, Lymphocytes % (Manual) 9, Monocytes % (Manual) 6, Eosinophils % (Manual) 2, Reactive Lymphocytes 4, Sodium Level 139, Potassium Level 4.0, Chloride Level 102, Carbon Dioxide Level 24, Anion Gap 13, Blood Urea Nitrogen 42H, Creatinine 1.05, Estimat Glomerular Filtration Rate 58, BUN/Creatinine Ratio 40, Glucose Level 155H, Calcium Level 9.9, Corrected Calcium 10.3H, Total Bilirubin 0.7, Aspartate Amino Transf (AST/SGOT) 14, Alanine Aminotransferase (ALT/SGPT) 12, Alkaline Phosphatase 65, Total Protein 7.6, Albumin 3.5 Home Meds Active Reported Vitamin D3 (Cholecalciferol (Vitamin D3)) 125 Mcg (5000 Unit) Tablet 125 Mcg PO DAILY Fish Oil 1,400 mg Softgel ([place]-3/Dha/Epa/Fish Oil) 850 Mg-1,400 Mg Capsule 1 Each PO DAILY Cinnamon (Cinnamon Bark) 500 Mg Capsule 1,200 Mg PO DAILY B Complex with Vitamin C (Vitamin B Complex & Vit C No.3) 15-10-300 Capsule 1 Each PO DAILY Rosuvastatin Calcium 10 Mg Tablet 10 Mg PO HS Cetirizine HCl 10 Mg Tablet 5 Mg PO DAILY TAKE 1/2 OF 10MG TAB Klor-Con M20 (Potassium Chloride) 20 Meq Tab.er.prt 20 Meq PO DAILY@1800 Aspirin 325 Mg Tablet 325 Mg PO DAILY Enalapril Maleate 20 Mg Tablet 20 Mg PO DAILY Lasix (Furosemide) 40 Mg Tablet 40 Mg PO DAILY@1800 Instructions to Patient/Family Assessment/Instructions Follow up via intermediate facility and with Dr. Barreto after discharge. Skilled NF Admit to: [facility] Certification (SNF) I certify that SNF services are required to be given on an inpatient basis because of the above named patient's need for intermediate care on a continuing basis for the conditions(s) for which he/she was receiving inpatient hospital services prior to his/her transfer to the SNF. [facility]pc Facility Order: Nursing Services, Physical Therapy-Evaluate & Treat Oxygen Delivery Method: Nasal Cannula Oxygen Flow Rate L/min (Range): 3 Discharge Diet: Regular Diet Daily Activity as Tolerated: Yes Eleni Haney Feb 04, 2023 11:49 Discharge Physical Exam General: Alert, No Acute Distress Heart: Regular Rate, Other (systolic blowing murmur) Abdomen: Normal Bowel Sounds, Soft Extremities: Other (1+ pitting edema) Neuro: Normal Speech Psych/Mental Status: Mood NL Diagnosis/Problems Problems/Diagonsis (1) COPD (chronic obstructive pulmonary disease) Status: Chronic (2) Aortic valve sclerosis Status: Chronic (3) Hypoxia Status: Acute (4) Osteoarthritis of right knee Status: Chronic (5) Hypertension Status: Chronic (6) Hyperlipidemia Status: Chronic (7) Candidal intertrigo Status: Acute (8) Unable to care for self Status: Acute (9) Morbid obesity Status: Chronic ELENI HANEY MD Feb 04, 2023 11:55
[2023-02-04] MEDS ORDERED: POLY17PO54 PO (12:00)
[2023-02-04] MEDS ORDERED: ACET325T49 PO (12:00)
[2023-02-04] MEDS ORDERED: CALC-250 PO (12:00)
[2023-02-04] MEDS ORDERED: ENAL-70 PO (12:00)
[2023-02-04] MEDS ORDERED: VITA1CAP16 PO (12:00)
[2023-02-04] MEDS ORDERED: ASPI-808 PO (12:00)
[2023-02-04] MEDS ORDERED: [UNRECOGNIZED DRUG - CODE] PO (12:00)
[2023-02-04] MEDS ORDERED: CINN500C2 PO (12:00)
[2023-02-04] MEDS ORDERED: POTA-169 PO (12:00)
[2023-02-04] MEDS ORDERED: FURO-124 PO (12:00)
[2023-02-04] MEDS ORDERED: CETI10TA17 PO (12:00)
[2023-02-04] MEDS ORDERED: ROSU10TA28 PO (12:00)
[2023-02-04] MEDS ORDERED: LEVA1.2543 INH (12:00)
[2023-02-04 13:28] VITALS: BP 113/56
== END 2023-02-04 13:25 ==
LOC: EDUNIT# 17:18 → ER 17:20 → 4TH 19:07 → INTOOBSV 19:07
PROVIDERS: ADMIT Internal Medicine; ATTEND Family Medicine
DX: M25.561 Pain in right knee (principal); M25.562 Pain in left knee; M17.0 Bilateral primary osteoarthritis of knee; J44.9 Chronic obstructive pulmonary disease, unspecified; I10 Essential (primary) hypertension; E78.5 Hyperlipidemia, unspecified; E66.2 Morbid (severe) obesity with alveolar hypoventilation; R09.02 Hypoxemia; I35.8 Other nonrheumatic aortic valve disorders; L30.4 Erythema intertrigo; B37.89 Other sites of candidiasis; F17.210 Nicotine dependence, cigarettes, uncomplicated; Z68.43 Body mass index [BMI] 50.0-59.9, adult
CPT/HCPCS: 36600; 51702; 71045; 73562; 80053 ×5; 81000; 82805; 83880; 84484; 85007; 85025 ×4; 85027; 85379; 93005; 94640 ×7; 94760 ×5; 97162; 97167; 97530; 99284; C8929; G0378; 36415; 93306

== ENCOUNTER 2023-02-10 08:01 | Inpatient (IN) | payer MEDICARE, MEDICAID ==
[~2023-02-10] VITALS: Ht 165 cm; Wt 167.1 kg
[~2023-02-10 08:01] MED LIST changes: +ACET325T49 PO; +CALC-250 PO; +CINN500C2 PO; +LEVA1.2543 INH; +POLY17PO54 PO; +ROSU10TA28 PO; +VANCOMYCIN 1500MG/300ML PREMIX IV SCH; +VITA1CAP16 PO; +[UNRECOGNIZED DRUG - CODE] PO; +[UNRECOGNIZED DRUG - CODE] PO
[2023-02-10] MEDS ORDERED: NS IV 1000 ML 1,000 ML IV ONE (08:15)
[2023-02-10] MEDS ORDERED: NOREPINEPHRINE 8 MG/250 ML 250 ML IV ONE ×2 (08:17→10:32)
[2023-02-10 08:23] LABS: BASOPHILS % (AUTO) 0 % (0-10); EOSINOPHILS % (AUTO) 0 % (0-10); HEMATOCRIT 43 % (35-52); HEMOGLOBIN 14.9 g/dL (11.5-16.0); LYMPHOCYTES # (AUTO) 0.9 10^3/uL (1.0-4.0); LYMPHOCYTES % (AUTO) 6 % (12-44); MEAN CORPUSCULAR HEMOGLOBIN 31 pg (25-34); MEAN CORPUSCULAR HGB CONC 34 g/dL (32-36); MEAN CORPUSCULAR VOLUME 89 fL (80-99); MEAN PLATELET VOLUME 10.4 fL (9.0-12.2); MONOCYTES # (AUTO) 0.8 10^3/uL (0.0-1.0); MONOCYTES % (AUTO) 6 % (0-12); NEUTROPHILS # (AUTO) 12.2 10^3/uL (1.8-7.8); NEUTROPHILS % (AUTO) 86 % (42-75); PLATELET COUNT 337 10^3/uL (130-400); WHITE BLOOD COUNT 14.2 10^3/uL (4.3-11.0)
[2023-02-10 08:56] LABS: CLARITY,URINE CLEAR; COLOR,URINE YELLOW; PROTEIN,URINE 1+ (NEGATIVE)
[2023-02-10 08:57] LABS: BACTERIA,URINE FEW /HPF; BILIRUBIN,URINE 1+ (NEGATIVE); GLUCOSE, URINE (UA) NEGATIVE (NEGATIVE); KETONES,URINE TRACE (NEGATIVE); LEUKOCYTE ESTERASE ,URINE NEGATIVE (NEGATIVE); NITRITE,URINE NEGATIVE (NEGATIVE); RBC,URINE 0-2 /HPF; WBC,URINE 0-2 /HPF
[2023-02-10 09:07] LABS: ABG BASE EXCESS -7.4 MMOL/L (-2.5-2.5); ABG OXYGEN SATURATION 95 % (94-100); ABG PCO2 44 MMHG (35-45); ABG PO2 107 MMHG (79-93)
[2023-02-10 09:08] LABS: POTASSIUM 4.4 MMOL/L (3.6-5.0)
[2023-02-10 09:09] LABS: BAND NEUTROPHILS 32 %; BASOPHILS % (MANUAL) 0 %; EOSINOPHILS % (MANUAL) 1 %; LYMPHOCYTES % (MANUAL) 7 %; METAMYELOCYTES % 6 %; MONOCYTES % (MANUAL) 5 %; NEUTROPHILS % (MANUAL) 49 %; POLYCHROMASIA SLIGHT
[2023-02-10 09:10] VITALS: BP 108/76
[2023-02-10 09:10] LABS: ABG PH 7.25 (7.37-7.43); ALLENS TEST YES-POS; INSPIRED O2 10L; PATIENT TEMP 37.1; VENTILATOR YES
[2023-02-10 09:10] LABS: CALCIUM 7.8 MG/DL (8.5-10.1)
[2023-02-10 09:10] LABS: TOXIC GRANULATION/VACUOLAZATIO 2+
[2023-02-10 09:11] LABS: TOTAL PROTEIN 6.7 GM/DL (6.4-8.2)
[2023-02-10 09:13] LABS: BILIRUBIN,TOTAL 0.6 MG/DL (0.1-1.0)
[2023-02-10] MEDS ORDERED: RT-LEVALBUTEROL 1.25 MG/3 ML NEBS (NON-FORMULARY) INH STA (09:22)
--- NOTE | 2023-02-10 09:25 | Diagnostic Imaging Report ---
Indication: Respiratory failure. Supine AP radiograph of the chest is performed, 2 films are taken, both of which have a substantial degree of rightward rotation with positional limitations based on patient's current condition. Rotation limits cardiomediastinal and hilar evaluation. The heart is at least mildly enlarged and is probably increased somewhat in caliber from the study of 01/31. ET tube tip is at the lower thoracic trachea just above the bev, right IJ at the lower SVC in good position. There is no pneumothorax. There is an OG catheter extending at least to the EG junction, distally cannot be visualized owing to abdominal soft tissue attenuation. Impression: 1. Limited by rotation, ET tube lower trachea just above the bev, right IJ good alignment. The OG catheter extends down the esophagus but it cannot be seen below the diaphragm probably obscured on a technical basis from body habitus. 2. Likely increased cardiomegaly and venous congestion. Dictated by: Dictated on workstation # [id number]
[2023-02-10 09:34] LABS: CREATININE SERUM 4.82 MG/DL (0.60-1.30)
--- NOTE | 2023-02-10 09:44 | ED General ---
General Chief Complaint: Respiratory Problems Stated Complaint: ABD PAIN | SOB Nursing Triage Note: PT ARRIVED PER EMS FROM [facility]. PT IS AWAKE O2 SAT ON 10L 89%. PT IS MORBIDLY OBESE AND ABD VERY DISTENDED AND FIRM TO TOUCH. PT CO OF ABD PAIN 5/10. EMS HAS IV #20 IN L AC W IVF INFUSING @ OPEN. PT HYPOTENSIVE. DR WINKLER IN ROOM. PT STATES IS FULL CODE WANTS TO BE INTUBATED. RT IN ROOM UPON ARRIVAL. EMS DID DUONEB TX ENROUTE. PT VERY PALE IN COLOR AND ONLY SPEAKING IN WORDS. Source of Information: Patient, EMS, Family History of Present Illness Date Seen by Provider: Feb 10, 2023 Time Seen by Provider: 08:05 Initial Comments Here by EMS from [facility] [place] were she was recently admitted for rehab after becoming increasingly weak and having difficulty with bowel movements. She was hospitalized here last week and then ultimately transferred there. She had been doing okay this weekend but started having increasing abdominal pain yesterday with increasing weakness and shortness of breath. She would do better when she was on her BiPAP. Does have history of COPD per the family. EMS did call and inform of the difficulties with oxygenation and we did do a DuoNeb in route. IV was established but lost. She did get a small fluid bolus of approximately 200 by EMS which did help her blood pressure some. Oxygen did improve to 90s on high flow O2 and with Atrovent treatment. EMS did transmit EKG due to concerns about ectopy and it appears to artifact. Patient is not complaining of chest pain. Apparently she was admitted for increasing weakness and difficulty with bowel movement. Daughter reports that she has had loose stools last few days but was increasingly weak last night. Did vomit today Timing/Duration: 1 Week, Getting Worse Severity: Moderate, Severe Associated Systoms: Nausea/Vomiting, Shortness of Air, Weakness Allergies and Home Medications Allergies Coded Allergies: albuterol (Unverified Allergy, Severe, Anaphylaxis, 01/31/23) Patient states albuterol causes her to feel like throat is closing. States that she was tested here for it prior but is unsure when. Tetracyclines (Verified Allergy, Unknown, NAUSEA, 02/20/15) adhesive tape (Verified Allergy, Unknown, HIVES, 02/20/15) sulfamethoxazole (Verified Allergy, Unknown, RASH, 02/20/15) trimethoprim (Verified Allergy, Unknown, RASH, 02/20/15) Patient Home Medication List Home Medication List Reviewed: Yes Acetaminophen (Acetaminophen) 325 Mg Tablet, 650 MG PO Q4H PRN for PAIN Prescribed by: ELENI SINGH on 02/04/231199 Aspirin (Aspirin) 325 Mg Tablet, 325 MG PO DAILY Prescribed by: ELENI SINGH on 02/04/231199 Cetirizine HCl (Cetirizine HCl) 10 Mg Tablet, 5 MG PO DAILY Prescribed by: ELENI SINGH on 02/04/231199 Cholecalciferol (Vitamin D3) (Vitamin D3) 125 Mcg (5000 Unit) Tablet, 125 MCG PO DAILY Prescribed by: ELENI SINGH on 02/04/231199 Cinnamon Bark (Cinnamon) 500 Mg Capsule, 1,200 MG PO DAILY Prescribed by: ELENI SINGH on 02/04/231199 Enalapril Maleate (Enalapril Maleate) 20 Mg Tablet, 20 MG PO DAILY Prescribed by: ELENI SINGH on 02/04/231199 Furosemide (Lasix) 40 Mg Tablet, 40 MG PO DAILY@1800 Prescribed by: ELENI SINGH on 02/04/231199 Levalbuterol HCl (Levalbuterol HCl) 1.25 Mg/3 Ml Vial.neb, 1.25 MG INH RTQ8HR Prescribed by: ELENI SINGH on 02/04/231199 [place]-3/Dha/Epa/Fish Oil (Fish Oil 1,400 mg Softgel) 850 Mg-1,400 Mg Capsule, 1 EACH PO DAILY Prescribed by: ELENI SINGH on 02/04/23 1200 Polyethylene Glycol 3350 (Polyethylene Glycol 3350) 17 Gram Powd.pack, 17 GM PO BID PRN for CONSTIPATION-1ST LINE Prescribed by: LEENI SINGH on 02/04/23 1200 Potassium Chloride (Klor-Con M20) 20 Meq Tab.er.prt, 20 MEQ PO DAILY@1800 Prescribed by: ELENI SINGH on 02/04/23 1200 Rosuvastatin Calcium (Rosuvastatin Calcium) 10 Mg Tablet, 10 MG PO HS Prescribed by: ELENI SINGH on 02/04/231199 Vitamin B Complex & Vit C No.3 (B Complex with Vitamin C) 15-10-300 Capsule, 1 EACH PO DAILY Prescribed by: ELENI SINGH on 02/04/23 1200 Review of Systems Review of Systems Constitutional: see HPI; No chills, No fever EENTM: No nose congestion, No throat pain Respiratory: No cough; short of breath Cardiovascular: No chest pain Gastrointestinal: abdominal pain, diarrhea, nausea, vomiting Genitourinary: decreased output Musculoskeletal: no symptoms reported Skin: no symptoms reported Psychiatric/Neurological: Weakness Past Kiaefqy-Smodeg-Xozlzo Hx Immunizations Up To Date Tetanus Booster (TDap): Less than 5yrs Seasonal Allergies Seasonal Allergies: No Past Medical History Surgeries: Yes Abdominal, Hysterectomy Respiratory: Yes Sleep Apnea Currently Using CPAP: No Currently Using BIPAP: Yes Cardiac: Yes High Cholesterol, Hypertension Neurological: Yes TIA Gastrointestinal: Yes Chronic Constipation Musculoskeletal: Yes Arthritis HEENT: Yes Cataract Cancer: Yes Uterine What Type of Treatment Did You: Surgical Intervention Family Medical History Reviewed Nursing Family Hx Arthritis 19 MOTHER Asthma 19 MOTHER Cardiovascular disease 19 FATHER Cataracts 19 MOTHER Colon cancer G8 BROTHER Diabetes mellitus 19 MOTHER Hypertension 19 MOTHER G8 SISTER Respiratory disorder 19 FATHER (LUNG CANCER) No Pertinent Family Hx Physical Exam-Suspected Sepsis Physical Exam Vital Signs Vital Signs - First Documented 02/10/23 02/10/23 08:05 09:10 Temp 37.1 Pulse 106 Resp 42 B/P (MAP) 87/57 (67) Pulse Ox 89 O2 Delivery OxyMask O2 Flow Rate 10.00 FiO2 100 Capillary Refill : Less Than 3 Seconds Blood Pressure Mean: 67 Height, Weight, BMI Height: 5'7" Weight: 350lbs. 0.0oz. [id number]; BMI Method:Stated General Appearance: Moderate Distress (Respiratory), Obese HEENT: PERRL/EOMI, Pharynx Normal Neck: Non Tender, Supple Respiratory: Expiration, Respiratory Distress, Wheezing, Other (Coarse sounds overall with vomitus in her mouth and concerns for aspiration) Cardiovascular: No Murmur, Tachycardia Gastrointestinal: Soft, Distended, Other (Morbidly obese and difficult exam) Back: No CVA Tenderness (L), No CVA Tenderness (R) Extremity: Non Tender, No Calf Tenderness, No Pedal Edema Neurologic/Psychiatric: Alert, Oriented x3, Motor Weakness (Grossly weak) Skin: normal color, warm/dry Focused Exam Lactate Level 02/10/23 08:46: Lactic Acid Level 3.23*H Lactic Acid Level Laboratory Tests Test 02/10/23 08:46 Lactic Acid Level 3.23 MMOL/L (0.50-2.00) *H Procedures/Interventions Lumen: triple Central Line Procedure: betadine prep, sterile drapes applied, sterile dressing applied Position: internal jugular (R) Complications: none Post Position: sutured, good blood return, position confirmed w/ CXR Central line placed via ultrasound guidance using Seldinger technique x1 stick without complication. Tolerated procedure well with no complications. Confirmed with x-ray. No pneumothorax. Date of ETT Placement: Feb 10, 2023 Time of ETT Placement: 824 Intubation Method: orotracheal Tube Size: 7.5 Medications: Etomidate (20 mg), Succinylcholine (200 mg) Positive End Tide CO2: Yes Breath Sounds after Intubation: bilateral-equal Intubation Complications: no complications Post Intubation Xray: Yes Tube in good position but backed off 1 cm Progress/Results/Core Measures Suspected Sepsis SIRS Temperature: Pulse: 111 Respiratory Rate: 24 Laboratory Tests 02/10/23 08:10: White Blood Count 14.2H Blood Pressure 108 /76 Mean: 67 02/10/23 08:46: Lactic Acid Level 3.23*H Laboratory Tests 02/10/23 08:10: Platelet Count 337 02/10/23 08:46: Creatinine 4.82#H, Total Bilirubin 0.6 Results/Orders Lab Results Laboratory Tests Test 02/10/23 08:10 02/10/23 08:12 02/10/23 08:35 02/10/23 08:46 Range/Units White Blood Count 14.2 H 4.3-11.0 10^3/uL Red Blood Count 4.88 3.80-5.11 10^6/uL Hemoglobin 14.9 11.5-16.0 g/dL Hematocrit 43 35-52 % Mean Corpuscular Volume 89 80-99 fL Mean Corpuscular Hemoglobin 31 25-34 pg Mean Corpuscular Hemoglobin Concent 34 32-36 g/dL Red Cell Distribution Width 13.2 10.0-14.5 % Platelet Count 337 130-400 10^3/uL Mean Platelet Volume 10.4 9.0-12.2 fL Immature Granulocyte % (Auto) 2 % Neutrophils (%) (Auto) 86 H 42-75 % Lymphocytes (%) (Auto) 6 L 12-44 % Monocytes (%) (Auto) 6 0-12 % Eosinophils (%) (Auto) 0 0-10 % Basophils (%) (Auto) 0 0-10 % Neutrophils # (Auto) 12.2 H 1.8-7.8 10^3/uL Lymphocytes # (Auto) 0.9 L 1.0-4.0 10^3/uL Monocytes # (Auto) 0.8 0.0-1.0 10^3/uL Eosinophils # (Auto) 0.0 0.0-0.3 10^3/uL Basophils # (Auto) 0.0 0.0-0.1 10^3/uL Immature Granulocyte # (Auto) 0.2 H 0.0-0.1 10^3/uL Neutrophils % (Manual) 49 % Lymphocytes % (Manual) 7 % Monocytes % (Manual) 5 % Eosinophils % (Manual) 1 % Basophils % (Manual) 0 % Metamyelocytes % 6 % Band Neutrophils 32 % Toxic Granulation 2+ Polychromasia SLIGHT Influenza Type A (RT-PCR) Not Detected Not Detecte Influenza Type B (RT-PCR) Not Detected Not Detecte SARS-CoV-2 RNA (RT-PCR) Not Detected Not Detecte Urine Color YELLOW Urine Clarity CLEAR Urine pH 5.0 5-9 Urine Specific [place] 1.025 H 1.016-1.022 Urine Protein 1+ H NEGATIVE Urine Glucose (UA) NEGATIVE NEGATIVE Urine Ketones TRACE H NEGATIVE Urine Nitrite NEGATIVE NEGATIVE Urine Bilirubin 1+ H NEGATIVE Urine Urobilinogen 0.2 < = 1.0 MG/DL Urine Leukocyte Esterase NEGATIVE NEGATIVE Urine RBC (Auto) TRACE H NEGATIVE Urine RBC 0-2 /HPF Urine WBC 0-2 /HPF Urine Squamous Epithelial Cells 10-25 H /HPF Urine Crystals NONE /LPF Urine Bacteria FEW H /HPF Urine Casts NONE /LPF Urine Mucus NEGATIVE /LPF Urine Culture Indicated NO Sodium Level 136 135-145 MMOL/L Potassium Level 4.4 3.6-5.0 MMOL/L Chloride Level 97 L 98-107 MMOL/L Carbon Dioxide Level 17 L 21-32 MMOL/L Anion Gap 22 H 5-14 MMOL/L Blood Urea Nitrogen 137 *H 7-18 MG/DL Creatinine 4.82 #H 0.60-1.30 MG/DL Estimat Glomerular Filtration Rate 9 BUN/Creatinine Ratio 26 Glucose Level 148 H 70-105 MG/DL Lactic Acid Level 3.23 *H 0.50-2.00 MMOL/L Calcium Level 7.8 L 8.5-10.1 MG/DL Corrected Calcium 8.6 8.5-10.1 MG/DL Total Bilirubin 0.6 0.1-1.0 MG/DL Aspartate Amino Transf (AST/SGOT) 63 H 5-34 U/L Alanine Aminotransferase (ALT/SGPT) 43 0-55 U/L Alkaline Phosphatase 72 40-136 U/L Troponin I 0.092 H <0.028 NG/ML Total Protein 6.7 6.4-8.2 GM/DL Albumin 3.0 L 3.2-4.5 GM/DL Test 02/10/23 08:58 Range/Units Blood Gas Puncture Site R RAD Blood Gas Patient Temperature 37.1 Arterial Blood pH 7.25 *L 7.37-7.43 Arterial Blood Partial Pressure CO2 44 35-45 MMHG Arterial Blood Partial Pressure O2 107 H 79-93 MMHG Arterial Blood HCO3 19 L 23-27 MMOL/L Arterial Blood Total CO2 20.0 L 21.0-31.0 MMOL/L Arterial Blood Oxygen Saturation 95 94-100 % Arterial Blood Base Excess -7.4 L -2.5-2.5 MMOL/L Jack Test YES-POS Blood Gas Ventilator Setting YES Blood Gas Inspired Oxygen 10L My Orders Orders - SATYA WINKLER MD Cbc With Automated Diff (02/10/23 08:12) Comprehensive Metabolic Panel (02/10/23 08:12) Blood Culture (02/10/23 08:12) Sputum Culture (02/10/23 08:12) Urinalysis (02/10/23 08:12) Urine Culture (02/10/23 08:12) Protime With Inr (02/10/23 08:12) Partial Thromboplastin Time (02/10/23 08:12) Chest 1 View, Ap/Pa Only (02/10/23 08:12) Ed Iv/Invasive Line Start (02/10/23 08:12) Vital Signs Adult Sepsis Patie Q15M (02/10/23 08:12) O2 (02/10/23 08:12) Remove Rings In Anticipation O (02/10/23 08:12) Lactic Acid Analyzer (02/10/23 08:12) Covid 19 Inhouse Test (02/10/23 08:12) Influenza A And B By Pcr (02/10/23 08:12) Ns Iv 1000 Ml (Sodium Chloride 0.9%) (02/10/23 08:15) Norepinephrine 8 Mg/250 Ml (Norepinephri (02/10/23 08:17) Manual Differential (02/10/23 08:10) Propofol Drip (Icu) (Diprivan Drip (Icu) (02/10/23 08:37) Troponin I Mar[place] (02/10/23 08:51) Arterial Blood Gas (02/10/23 08:59) Levalbuterol (Non-Formulary) (Levalbuter (02/10/23 09:22) Mdi Treatment (02/10/23 09:22) Piperacillin Sodium/Tazobactam (Zosyn Vi (02/10/23 10:00) Code/Resuscitation (02/10/23 09:46) Ed Admission (Communication) (02/10/23 09:46) Ekg Tracing (02/10/23 10:16) Medications Given in ED Current Medications Medications Dose Ordered Sig/Rachel Route Start Time Stop Time Status Last Admin Dose Admin Piperacillin Sod/ Tazobactam Sod 4.5 gm/Sodium Chloride 100 ml @ 200 mls/hr ONCE ONCE IV 02/10/23 10:00 02/10/23 10:29 DC 02/10/23 10:09 200 MLS/HR Vital Signs/I&O 02/10/23 02/10/23 02/10/23 08:05 08:05 09:10 Temp 37.1 Pulse 106 111 Resp 42 24 B/P (MAP) 87/57 (67) Pulse Ox 89 89 93 O2 Delivery OxyMask Simple Mask O2 Flow Rate 10.00 FiO2 100 Capillary Refill : Less Than 3 Seconds Blood Pressure Mean: 67 Progress Note : Progress Note Seen and evaluated. Sepsis protocol initiated with CBC, CMP, troponin, lactic acid, blood cultures, UA, urine culture, coags and chest x-ray ordered. Also added for troponin, influenza and COVID testing. We will continue normal saline 1 L bolus initiated by EMS. Patient has poor oxygen saturation despite high flow O2 and is only able to stay upper 88-90 and is obviously in distress. I did speak with her frankly about the current condition and need for possible intervention including intubation. I did express to her the critical nature of what I am seeing so far. Ultimately she agreed to intubation if indicated and reports full code. Patient continued to decline and we elected to do emergent intubation. She has IV access that is unlikely to be maintained for very long. We will also pursue central line placement due to hypotension and the need for medications and frequent blood draws. All of this was discussed with the patient who agreed. We did move to intubation using RSI followed by central line placement as noted in procedure notes. Complex both without significant difficulty. Differential diagnosis includes aspiration pneumonia, UTI, electrolyte abnormality, dehydration, renal failure, respiratory failure 0941: I have reviewed chest x-ray ET tube at bev. This was backed off 1 cm. Overall no obvious infiltrate on my interpretation and central line, orogastric tube and ET tube are all in good position otherwise. Labs reviewed and white count noted to be elevated with normal hemoglobin. Troponin is slightly elevated and that is expected given her hypoxia. Chemistries do show moderate dysfunction with renal failure noted that is new from last week. Liver function is okay at this point. COVID and influenza are negative. UA is not concerning for UTI. I did discuss the case with Dr. Rebolledo and she accepts patient for admission to the ICU, critical condition, full code. We will go ahead and initiate Zosyn due to concerns for aspiration pneumonia. 1018: Patient to ICU. Patient is on Levophed drip which has been adjusted multiple times and is currently at 0.3 mcg/kg/min and we have adjusted propofol drip for sedation. I spoke at length with daughter and her friend regarding current condition and status. We did review current situation and therapies and they agree with admission. Report to eICU. 1028: I did report all current findings, therapy and concerns to the eICU on-call ECG Initial ECG Impression Date: Feb 10, 2023 Initial ECG Impression Time: 08:10 Initial ECG Rate: 101 Initial ECG Rhythm: S.Tach Comment Earlier with left axis deviation. No evidence of ST elevation NM. Interpreted by me. EKG : EKG Time: 09:12 Rate: 109 Rhythm: S.Tach Comment Sinus tachycardia with left axis deviation. No evidence of ST elevation NM. Similar morphology to earlier although worsening left axis deviation. Interpreted by me. Diagnostic Imaging Diagonstic Imaging: Xray Plain Films/CT/US/NM/MRI: chest Comments [facility]. [place], [place] NAME: MATT PAZ [facility] REC#: [id number] PT STATUS: REG ER : 1955 PHYSICIAN: SATYA WINKLER MD ADMIT DATE: 02/10/23/ER Draft Date of Exam:02/10/23 CHEST 1 VIEW, AP/PA ONLY Indication: Respiratory failure. Supine AP radiograph of the chest is performed, 2 films are taken, both of which have a substantial degree of rightward rotation with positional limitations based on patient's current condition. Rotation limits cardiomediastinal and hilar evaluation. The heart is at least mildly enlarged and is probably increased somewhat in caliber from the study of 01/31. ET tube tip is at the lower thoracic trachea just above the bev, right IJ at the lower SVC in good position. There is no pneumothorax. There is an OG catheter extending at least to the EG junction, distally cannot be visualized owing to abdominal soft tissue attenuation. Impression: 1. Limited by rotation, ET tube lower trachea just above the bev, right IJ good alignment. The OG catheter extends down the esophagus but it cannot be seen below the diaphragm probably obscured on a technical basis from body habitus. 2. Likely increased cardiomegaly and venous congestion. Dictated on workstation # [id number] Dict: 02/10/23904 Trans: 02/10/23923 [facility] [id number] Interpreted by: SAIMA ALEXANDER Electronically signed by: Critical Care Note Critical Care Start Time: 08:05 Stop Time: 10:28 Total Time (minutes) 45 Progress Care time includes time for evaluation, management and report required for lifesaving measures and excludes separately billable procedures. See progress note for details. Departure Communication (Admissions) Time/Spoke to Admitting Phy: 09:41 Time/Spoke to Consulting Phy: 10:28 Impression Primary Impression: Aspiration pneumonia Qualified Codes: J69.0 - Pneumonitis due to inhalation of food and vomit Additional Impressions: Acute renal failure Qualified Codes: N17.9 - Acute kidney failure, unspecified Hypoxia Disposition: ADMITTED INPATIENT Condition: Critical Admissions Decision to Admit Reason: Admit from ER (General) Decision to Admit/Date: Feb 10, 2023 Time/Decision to Admit Time: 09:41 Departure-Patient Inst. Referrals: [facility] (PCP/Family) Primary Care Physician SATYA WINKLER MD Feb 10, 2023 09:44
[2023-02-10] MEDS ORDERED: PIPERACILLIN/Tazobactam 4.5 GM in NS (IVPB) 100 ML 100 ML IV ONE (10:00)
[2023-02-10] MEDS ORDERED: ONDANSETRON 4 MG ORAL DISSOLVE TABLET PO PRN (10:30)
[2023-02-10] MEDS ORDERED: DexMEDEtomidine 1,000mcg/250ml 250 ML IV SCH (10:30)
[2023-02-10] MEDS ORDERED: diphenhydrAMINE INJ 50 MG/ML VIAL IVP PRN (10:30)
[2023-02-10] MEDS ORDERED: BISACODYL 10 MG SUPPOSITORY PR PRN (10:30)
[2023-02-10] MEDS ORDERED: ANTACID SUSPENSION 30 ML UDC PO PRN (10:30)
[2023-02-10] MEDS ORDERED: NS IV 500 ML 500 ML IV PRN (10:30)
[2023-02-10] MEDS ORDERED: ONDANSETRON INJECTION 4 MG/2 ML (SDV) IV PRN (10:30)
[2023-02-10] MEDS ORDERED: CALCIUM CARBONATE 500 MG CHEW TABLET PO PRN (10:30)
[2023-02-10] MEDS ORDERED: MILK OF MAGNESIA 400 MG/5 ML 30 ML UDC PO PRN (10:30)
[2023-02-10] MEDS ORDERED: VANCOMYCIN INJECTION 0.1 MG in NS (IVPB) 250 ML 250 ML IV SCH (10:30)
[2023-02-10] MEDS ORDERED: MELATONIN 3 MG TABLET PO PRN (10:30)
[2023-02-10] MEDS ORDERED: diphenhydrAMINE 25 MG TABLET PO PRN (10:30)
[2023-02-10] MEDS ORDERED: NOREPINEPHRINE 8 MG/250 ML 250 ML IV SCH (10:30)
[2023-02-10] MEDS ORDERED: LACTULOSE SYRUP 10GM/15ML 30ML UDC PO PRN (10:30)
[2023-02-10] MEDS: NS IV 1000 ML 1,000 ML IV SCH ×2 (10:44→18:21)
[2023-02-10] MEDS: fentaNYL DRIP PRE-MIX 250 ML IV SCH (10:52)
[2023-02-10] MEDS ORDERED: VANCOMYCIN 2000 MG/NS 500 ML IVPB IV NR ×2 (11:00)
[2023-02-10 11:23] LABS: INR 1.5 (0.8-1.4); PROTHROMBIN TIME PATIENT 17.9 SEC (12.2-14.7)
[2023-02-10] MEDS ORDERED: NS IV 1000 ML 1,000 ML IV SCH ×2 (11:30→19:00)
[2023-02-10] MEDS: PANTOPRAZOLE INJECTION 40 MG VIAL IV SCH (11:35)
[2023-02-10] MEDS: VASOPRESSIN INJECTION 20 UNIT in NS (IVPB) 100 ML 100 ML IV SCH ×2 (11:39→20:49)
[2023-02-10 12:02] LABS: ABG BASE EXCESS -9.8 MMOL/L (-2.5-2.5); ABG OXYGEN SATURATION 96 % (94-100); ABG PCO2 41 MMHG (35-45); ABG PO2 126 MMHG (79-93); ABG TCO2 17.7 MMOL/L (21.0-31.0)
[2023-02-10 12:05] LABS: ABG PH 7.23 (7.37-7.43); ALLENS TEST YES-POS; PATIENT TEMP 36.8; VENTILATOR YES
[2023-02-10 12:06] LABS: INSPIRED O2 100%
--- NOTE | 2023-02-10 12:28 | Tele-ICU Consult ---
History of Present Illness History of Present Illness Date Seen by Provider: Feb 10, 2023 Time Seen by Provider: 12:27 Date of Admission History of Present Illness Available chart/ vitals / labs / Images reviewed H&P is from ER notes Patient's information available about PMH, Shx, Fhx allergy reviewed inEMR. ROS as per chart and RN report Now in ICU, hemodynamically stable Video assessment done using teleICU camera, rest of exam as per RN Discussed with RN. VENT SETTINGS and ABG reviewed NOT CANDIDATE for SBTreviewed possible contraindications including Cardiovascular Stability /Sedation Score / FI02/PEEP / ABG / CXR/ secretions Sedation, discussed with RN, RASS on propofol 40 , fentanyl 50 Hospital course: (02/10) 67F admitted for aspiration PNA/sepsis, COPD, ARF. INTUBATED. Was at a rehab for weakness/difficulty with bowel movements. Increasingly worsening breathing so tx to [place] [facility]. EMS gave duoneb (allergy to albuterol-makes her feel like throat closing-unsure if real allergy). Did vomit/aspirate. Diarrhea recently 02/10-AC 20 - 100% peep 10 , levo 0.06, vaso , propofol 40 , fentanyl 50 A/P Acute resp failure - Intubated 02/10 in ER for hypoxia, possible aspiration - cont full vent support Shock , supected septic - cont hydration ( EF 50% 2 weeks ago ) - fluid calculated to IBW of 61 kg ( with fio2 100% ) - pressors started - cont - to correct acidosis - cx done , abx started SHANNA - was on lasix after d/c form hospital - ? dehydration component to hypotension /shock - cont hydraion - add bicarb gtt given shock and anuria - repeat bmp in few hours Abd pain for few days N/V loose stool, SHANNA - will need abd images - CT vs US - depending on patien's vitals stability Possible asp PNA - cont abx ( might add flagyl if abd ct abnormal ) Elv lactate - sepsis, hypoperfulsion , hypoxia - follow COPD? as baseline / [facility]? - was on BIPAP on previous admission - to follow after exctubation Lines : central liibe placed in ER 02/10 , (Central Line Necessity Reviewed) Venegas: 02/10 OG: Nutrition: npo Analgesia: Anxiety/ delirium VTE Prophylaxis: hep sq Stress Ulcer Prophylaxis: ppi Plans in collaboration with bedside consultants and IM MDs. Discussed with RN to reach out if any questions or concerns A total of 40 minutes of critical care time was devoted to this patient today, required to treat and/or prevent further deterioration of critical care condition ( as above ) . I am remotely monitoring this patient from another state. I am unable to do the bedside exam, and history/physical and pertinent information is taken from other notes in the computer and bedside staff. . Allergies and Home Medications Allergies Coded Allergies: albuterol (Unverified Allergy, Severe, Anaphylaxis, 01/31/23) Patient states albuterol causes her to feel like throat is closing. States that she was tested here for it prior but is unsure when. Tetracyclines (Verified Allergy, Unknown, NAUSEA, 02/20/15) adhesive tape (Verified Allergy, Unknown, HIVES, 02/20/15) sulfamethoxazole (Verified Allergy, Unknown, RASH, 02/20/15) trimethoprim (Verified Allergy, Unknown, RASH, 02/20/15) Home Medications Acetaminophen 325 Mg Tablet, 650 MG PO Q4H PRN for PAIN Prescribed by: ELENI SINGH on 02/04/23 1200 Aspirin 325 Mg Tablet, 325 MG PO DAILY Prescribed by: ELENI SINGH on 02/04/23 1200 Cetirizine HCl 10 Mg Tablet, 5 MG PO DAILY TAKE 1/2 OF 10MG TAB Prescribed by: ELENI SINGH on 02/04/231199 Cholecalciferol (Vitamin D3) 125 Mcg (5000 Unit) Tablet, 125 MCG PO DAILY Prescribed by: ELENI SINGH on 02/04/23 1200 Cinnamon Bark 500 Mg Capsule, 1,200 MG PO DAILY Prescribed by: ELENI SINGH on 02/04/23 1200 Enalapril Maleate 20 Mg Tablet, 20 MG PO DAILY Prescribed by: ELENI SINGH on 02/04/23 1200 Furosemide 40 Mg Tablet, 40 MG PO DAILY@1800 Prescribed by: ELENI SINGH on 02/04/23 1200 Levalbuterol HCl 1.25 Mg/3 Ml Vial.neb, 1.25 MG INH RTQ8HR Prescribed by: ELENI SINGH on 02/04/23 1200 Island-3/Dha/Epa/Fish Oil 850 Mg-1,400 Mg Capsule, 1 EACH PO DAILY Prescribed by: ELENI SINGH on 02/04/23 1200 Polyethylene Glycol 3350 17 Gram Powd.pack, 17 GM PO BID PRN for CONSTIPATION- 1ST LINE Prescribed by: ELENI SINGH on 02/04/23 1200 Potassium Chloride 20 Meq Tab.er.prt, 20 MEQ PO DAILY@1800 Prescribed by: ELENI SINGH on 02/04/23 1200 Rosuvastatin Calcium 10 Mg Tablet, 10 MG PO HS Prescribed by: ELENI SINGH on 02/04/23 1200 Vitamin B Complex & Vit C No.3 15-10-300 Capsule, 1 EACH PO DAILY Prescribed by: ELENI SINGH on 02/04/23 1200 Past Medical/Social/Family Hx Patient Social History Tobacco Use?: Yes Tobacco type used: Cigarettes Smoking Status: Current Everyday Smoker Substance use?: No Alcohol Use?: No Pt stated abuse/neglect: No Immunizations Up To Date Tetanus Booster (TDap): Unknown Hepatitis A: No Hepatitis B: No TB Skin Test: None Current Status status: No Advance Directives: No Communicates: Verbally Primary Language: Northern Irish Preferred Spoken Language: Northern Irish Is interpretation needed?: No Implanted or Applied Medical D: None Review of Systems Constitutional: other Focused Exam Sepsis Stage: Septic Shock Possible Source: Other Lactate Level 02/10/23 08:46: Lactic Acid Level 3.23*H 02/10/23 10:46: Lactic Acid Level 3.12*H Height, Weight, BMI Height: 5'7" Weight: 350lbs. 0.0oz. 158.792765hc; BMI Method:Stated Respiratory: Other Cardiovascular: Other Skin: other Lactic Acid Level Laboratory Tests Test 02/10/23 08:46 02/10/23 10:46 Lactic Acid Level 3.23 MMOL/L (0.50-2.00) *H 3.12 MMOL/L (0.50-2.00) *H Within 3hrs of presentation: Admin fluids, Admin 30ml/kg IBW due to BMI>30, Blood cultures prior to ABX's, Focus exam, Lactate level, Vasopressin therapy Exam Exam Patient acknowledged, consented, and participated in this virtual visit which was conducted using real time audio/video Vital Signs Date Time Temp Pulse Resp B/P (MAP) Pulse Ox O2 Delivery O2 Flow Rate FiO2 02/10/23 11:39 118 86/61 02/10/23 11:30 118 26 86/61 (69) 100 Mechanical Ventilator 100.00 02/10/23 11:15 118 27 74/55 (61) 100 Mechanical Ventilator 100.00 02/10/23 11:00 116 28 84/59 (67) 100 Mechanical Ventilator 100.00 02/10/23 10:55 111 108/76 02/10/23 10:54 111 108/76 02/10/23 10:53 111 108/76 02/10/23 10:52 111 108/76 02/10/23 10:49 112 02/10/23 10:48 111 108/76 02/10/23 10:45 112 30 80/56 (64) 100 Mechanical Ventilator 100.00 02/10/23 10:44 111 108/76 02/10/23 10:30 108 18 83/36 (52) 100 Mechanical Ventilator 100.00 02/10/23 09:10 111 24 93 100 02/10/23 08:05 37.1 106 42 87/57 (67) 89 Simple Mask 02/10/23 08:05 89 OxyMask 10.00 Height & Weight Height: 5'7" Weight: 350lbs. 0.0oz. 158.851632fy; BMI Method:Stated General Appearance: Moderate Distress (Respiratory), Obese, Other HEENT: PERRL/EOMI, Pharynx Normal Neck: Non Tender, Supple Respiratory: Expiration, Respiratory Distress, Wheezing, Other (Coarse sounds overall with vomitus in her mouth and concerns for aspiration) Cardiovascular: No Murmur, Tachycardia Capillary Refill: Less Than 3 Seconds Extremity: Non Tender, No Calf Tenderness, No Pedal Edema Neurologic/Psychiatric: Alert, Oriented x3, Motor Weakness (Grossly weak) Results Lab Laboratory Tests 02/10/23 08:10 02/10/23 08:46 Assessment/Plan Assessment/Plan 1 KERI CALL MD Feb 10, 2023 12:28
[2023-02-10] MEDS: NOREPINEPHRINE 16 MG/250 ML DRIP IV SCH ×8 (13:00→19:04)
[2023-02-10] MEDS: SODIUM BICARBONATE 8.4% SYR 150 MEQ in D5W 1,000 ML IV SOLUTION 1,000 ML IV SCH (13:00)
[2023-02-10] MEDS: inSUlin ASPART 1 UNIT/0.01 ML (PER UNIT) SC SCH ×3 (13:43→23:41)
[2023-02-10 14:01] VITALS: BP 134/85
[2023-02-10] MEDS ORDERED: ETOMIDATE INJ SOLN 20 MG/10 ML VIAL IV ONE (14:15)
[2023-02-10] MEDS ORDERED: RT-LEVALBUTEROL 1.25 MG/3 ML NEBS (NON-FORMULARY) INH PRN (14:15)
[2023-02-10] MEDS ORDERED: SUCCINYLCHOLINE INJ 20 MG/1 ML 10 ML VIAL INJ ONE (14:15)
[2023-02-10] MEDS ORDERED: fentaNYL INJECTION 100 MCG/2 ML VIAL IV ONE (14:15)
[2023-02-10] MEDS ORDERED: MIDAZOLAM INJ 5 MG/5 ML VIAL INJ ONE (14:15)
--- NOTE | 2023-02-10 14:40 | History & Physical-Hospitalist ---
[facility] 02/10/23 1440: History of Present Illness HPI/Chief Complaint CC: abdominal pain and SOB HPI: 67 y/o female with a history of HTN, HLD, TIA, arthritis, and cardiac stenosis arrived by EMS w/ abdominal pain and SOB from [facility]. She had been having difficulty with bowel movements for the past week and progressive abdominal pain according to her family. She reported no chest pain upon arrival but was in respiratory distress. ED reports her abdomen was firm to touch and her critical condition was made known to her, she indicated she wants to be intubated. Patient was in severe distress despite being on high flow O2 so she was intubated using RSI. Initial labs showed elevated WBC count, troponin- likely from hypoxia, and SHANNA. No UTI was noted. Sepsis protocol was initiated with concern for aspiration pneumonia. She was moved to ICU and was started on IV Zosyn, vancomycin, and was sedated with propofol. Chest X- ray indicated respiratory failure and mild cardiac enlargement. Vitals have stabilized and is being kept in ICU on ventilator. Source: RN/, old records Date Seen 02/10/23 Time Seen by a Provider: 11:30 Attending Physician [place] PCP Admitting Physician: Rosie Rebolledo DO Attending Physician: Rosie Rebolledo DO Referring Physician Date of Admission Feb 10, 2023 at 10:12 Home Medications & Allergies Home Medications Reviewed patient Home Medication Reconciliation performed by pharmacy medication reconciliations occupational therapy technician and/or nursing. Patients Allergies have been reviewed. Allergies Allergies Coded Allergies albuterol (Unverified Allergy, Severe, Anaphylaxis, 01/31/23) Patient states albuterol causes her to feel like throat is closing. States that she was tested here for it prior but is unsure when. Tetracyclines (Verified Allergy, Unknown, NAUSEA, 02/20/15) adhesive tape (Verified Allergy, Unknown, HIVES, 02/20/15) sulfamethoxazole (Verified Allergy, Unknown, RASH, 02/20/15) trimethoprim (Verified Allergy, Unknown, RASH, 02/20/15) Past Syimfna-Ratuml-Jiqnmd Hx Patient Social History Tobacco Use?: Yes Tobacco type used: Cigarettes Smoking Status: Current Everyday Smoker Substance use?: No Alcohol Use?: No Pt feels they are or have been: No Immunizations Up To Date Tetanus Booster (TDap): Unknown Hepatitis A: No Hepatitis B: No Seasonal Allergies Seasonal Allergies: No Current Status status: No Advance Directives: No Communicates: Verbally Primary Language: Dominican Preferred Spoken Language: Dominican Is interpretation needed?: No Implanted or Applied Medical D: None Past Medical History Surgeries: Abdominal, Cardiac (Left internal carotid endarterectomy - had 95% stenosis ), Hysterectomy Sleep Apnea Currently Using CPAP: No Currently Using BIPAP: Yes High Cholesterol, Hypertension TIA Chronic Constipation Arthritis Cataract Uterine What Type of Treatment Did You: Surgical Intervention Family Medical History Reviewed Nursing Family Hx Arthritis 19 MOTHER Asthma 19 MOTHER Cardiovascular disease 19 FATHER Cataracts 19 MOTHER Colon cancer G8 BROTHER Diabetes mellitus 19 MOTHER Hypertension 19 MOTHER G8 SISTER Respiratory disorder 19 FATHER (LUNG CANCER) No Pertinent Family Hx Review of Systems ROS-Unable to Obtain: Patient is on ventilator Constitutional: see HPI Physical Exam Physical Exam Vital Signs Vital Signs - First Documented 02/10/23 02/10/23 08:05 09:10 Temp 37.1 Pulse 106 Resp 42 B/P (MAP) 87/57 (67) Pulse Ox 89 O2 Delivery OxyMask O2 Flow Rate 10.00 FiO2 100 Capillary Refill : Less Than 3 Seconds Height, Weight, BMI Height: 5'7" Weight: 350lbs. 0.0oz. 158.697009gm; 62.44 BMI Method:Stated General Appearance: Obese, Severe Distress Results Results/Procedures Labs Laboratory Tests 02/10/23 08:10 02/10/23 08:46 Patient resulted labs reviewed. Assessment/Plan Admission Diagnosis Assessment: acute respiratory failure aspiration pneumonia sepsis hypoxia acute renal failure HTN HLD osteoarthritis sleep apnea Plan: Monitor labs and vitals keep on ventilator continue IV antibiotic tx f/u chest x-ray Admission Status: Inpatient Order (span 2 midnights) Reason for Inpatient Admission: aspiration pneumonia Critical Care Ventilator Management ROSIE REBOLLEDO DO 02/10/23 1944: Past Qjjbqrg-Rzjcng-Pvqeah Hx Family Medical History Arthritis 19 MOTHER Asthma 19 MOTHER Cardiovascular disease 19 FATHER Cataracts 19 MOTHER Colon cancer G8 BROTHER Diabetes mellitus 19 MOTHER Hypertension 19 MOTHER G8 SISTER Respiratory disorder 19 FATHER (LUNG CANCER) Assessment/Plan Admission Diagnosis Chronic debility Chronic resp failure now intubated Admission Status: Inpatient Order (span 2 midnights) Reason for Inpatient Admission: resp failure Supervisory-Addendum Brief Verification & Attestation Participated in pt care: history, MDM, physical Personally performed: exam, history, MDM, supervision of care Care discussed with: Medical Student Procedures: n/a Results interpretation: Verified all documentation Verification and Attestation of Medical Student E/M Service A medical student performed and documented this service in my presence. I reviewed and verified all information documented by the medical student and made modifications to such information, when appropriate. I personally performed the physical exam and medical decision making. Rosie Rebolledo, Feb 10, 2023,19:43 VICENTE Feb 10, 2023 14:40 ROSIE REBOLLEDO DO Feb 10, 2023 19:44
[2023-02-10] MEDS: RT-LEVALBUTEROL 1.25 MG/3 ML NEBS (NON-FORMULARY) INH SCH ×2 (14:52→21:17)
[2023-02-10 14:53] VITALS: BP 91/53
[2023-02-10] MEDS ORDERED: CINN500C2 PO (15:36)
[2023-02-10] MEDS ORDERED: ACET325T38 PO (15:36)
[2023-02-10] MEDS ORDERED: POLY17PO6 PO (15:36)
[2023-02-10 16:17] LABS: POTASSIUM 4.7 MMOL/L (3.6-5.0)
[2023-02-10 16:22] LABS: CREATININE SERUM 4.29 MG/DL (0.60-1.30)
[2023-02-10] MEDS: PIPERACILLIN/Tazobactam 4.5 GM in NS (IVPB) 100 ML 100 ML IV SCH (17:41)
[2023-02-10 18:55] VITALS: BP 98/66
[2023-02-10] MEDS: SENNOSIDES 8.6 MG (SENOKOT) TAB PO SCH (20:44)
[2023-02-10] MEDS: ACETAMINOPHEN 325 MG TABLET PO PRN (20:44)
[2023-02-10] MEDS ORDERED: DOCUSATE SODIUM 100 MG CAPSULE PO SCH (21:00)
[2023-02-10 21:17] VITALS: BP 93/62
[2023-02-10] MEDS: NOREPINEPHRINE INJECTION 16 MG in NS (IVPB) 250 ML 234 ML IV PRN (21:36)
[2023-02-11] MEDS: SODIUM BICARBONATE 8.4% SYR 150 MEQ in D5W 1,000 ML IV SOLUTION 1,000 ML IV SCH ×3 (00:17→23:26)
[2023-02-11] MEDS: NOREPINEPHRINE INJECTION 16 MG in NS (IVPB) 250 ML 234 ML IV PRN ×10 (00:19→22:41)
[2023-02-11] MEDS: NS IV 1000 ML 1,000 ML IV SCH ×4 (01:52→22:19)
[2023-02-11 02:19] VITALS: BP 87/51
[2023-02-11] MEDS: RT-LEVALBUTEROL 1.25 MG/3 ML NEBS (NON-FORMULARY) INH SCH ×4 (02:19→21:33)
[2023-02-11 04:22] LABS: BASOPHILS % (AUTO) 0 % (0-10); EOSINOPHILS % (AUTO) 0 % (0-10); HEMATOCRIT 40 % (35-52); HEMOGLOBIN 13.5 g/dL (11.5-16.0); LYMPHOCYTES # (AUTO) 1.2 10^3/uL (1.0-4.0); LYMPHOCYTES % (AUTO) 5 % (12-44); MEAN CORPUSCULAR HEMOGLOBIN 30 pg (25-34); MEAN CORPUSCULAR HGB CONC 34 g/dL (32-36); MEAN CORPUSCULAR VOLUME 90 fL (80-99); MEAN PLATELET VOLUME 10.4 fL (9.0-12.2); MONOCYTES # (AUTO) 0.6 10^3/uL (0.0-1.0); MONOCYTES % (AUTO) 3 % (0-12); NEUTROPHILS # (AUTO) 18.9 10^3/uL (1.8-7.8); NEUTROPHILS % (AUTO) 88 % (42-75); PLATELET COUNT 268 10^3/uL (130-400); WHITE BLOOD COUNT 21.4 10^3/uL (4.3-11.0)
[2023-02-11] MEDS: PIPERACILLIN/Tazobactam 4.5 GM in NS (IVPB) 100 ML 100 ML IV SCH ×3 (04:40→18:13)
[2023-02-11 04:47] LABS: ALBUMIN 2.4 GM/DL (3.2-4.5); BILIRUBIN,TOTAL 0.4 MG/DL (0.1-1.0); CALCIUM 6.4 MG/DL (8.5-10.1); CREATININE SERUM 4.14 MG/DL (0.60-1.30); MAGNESIUM 1.6 MG/DL (1.6-2.4); PHOSPHORUS 5.4 MG/DL (2.3-4.7); POTASSIUM 4.6 MMOL/L (3.6-5.0); TOTAL PROTEIN 5.8 GM/DL (6.4-8.2)
[2023-02-11 04:49] LABS: SMEAR SCAN COMMENT YES
[2023-02-11] MEDS: POTASSIUM CL 10MEQ/50ML IVPB 50 ML IV SCH (05:08)
[2023-02-11] MEDS: MAGNESIUM 1 GM/100 ML IVPB 100 ML IV SCH (05:08)
[2023-02-11] MEDS: POTASSIUM CHLORIDE 20 MEQ TABLET PO SCH (05:08)
[2023-02-11 05:10] LABS: ABG BASE EXCESS -8.2 MMOL/L (-2.5-2.5); ABG OXYGEN SATURATION 94 % (94-100); ABG PCO2 34 MMHG (35-45); ABG PO2 87 MMHG (79-93); ABG TCO2 17.8 MMOL/L (21.0-31.0); ALLENS TEST YES-POS; INSPIRED O2 30%
[2023-02-11 05:11] LABS: VENTILATOR YES
[2023-02-11 05:12] LABS: ABG PH 7.32 (7.37-7.43)
[2023-02-11] MEDS: inSUlin ASPART 1 UNIT/0.01 ML (PER UNIT) SC SCH ×4 (05:26→23:26)
[2023-02-11] MEDS: VASOPRESSIN INJECTION 20 UNIT in NS (IVPB) 100 ML 100 ML IV SCH ×2 (08:25→19:27)
[2023-02-11] MEDS: SENNOSIDES 8.6 MG (SENOKOT) TAB PO SCH ×2 (09:20→20:18)
[2023-02-11] MEDS: PANTOPRAZOLE INJECTION 40 MG VIAL IV SCH (09:20)
[2023-02-11] MEDS: DOCUSATE SODIUM 100 MG/10 ML UDC ORAL SOLN PO SCH ×2 (09:20→20:18)
--- NOTE | 2023-02-11 09:45 | Diagnostic Imaging Report ---
INDICATION: Pneumonia, intubated, ICU management . TECHNIQUE: Single view chest 2:35 AM CORRELATION STUDY: 02/10/2023 FINDINGS: Endotracheal tube projects over the lower trachea, approximately 2 cm above the bev. Gastric tube is present, tip not visualized. Right IJ central line tip at the cavoatrial junction. Heart size enlarged. Vasculature is prominent. Minimal perihilar and basilar opacities indeterminate between edema versus infiltrate. IMPRESSION: 1. Generally stable appearance about support lines and tubes. Gastric tube tip cannot be visualized. 2. Continued likely findings of edema. Superimposed perihilar and basilar opacities may reflect edema versus infiltrate. Dictated by: Dictated on workstation # [id number]
[2023-02-11] MEDS: MICONAZOLE 2% POWDER 90 GM TOP SCH ×2 (10:25→20:19)
[2023-02-11 10:45] VITALS: BP 74/53
[2023-02-11] MEDS ORDERED: TROUGH ORDER-PHARMACY XX NR (11:00)
[2023-02-11] MEDS: ACETAMINOPHEN 325 MG TABLET PO PRN ×3 (11:07→23:26)
[2023-02-11] MEDS ORDERED: VANCOMYCIN 1500MG/300ML PREMIX IV SCH (12:00)
--- NOTE | 2023-02-11 12:04 | Tele-ICU Progress Note ---
Subjective Date Seen by a Provider: Feb 11, 2023 Time Seen by a Provider: 12:04 Subjective/Events-last exam (Tele-ICU Physician , Progress Note ) Service provided via interactive audio and video telecommunications E-CARE system to a patient admitted to ICU bed in [facility]. Patient is seen today due to persistent need of ICU care Available chart/ vitals / labs / Images reviewed Video assessment done using teleICU camera, rest of exam as per RN Discussed with RN Events overnight : Afebrile hemodynamically stable Respiratory - 30% I/O =++ Drips: NS and bicarb gtt Pressors- levo vaso VENT SETTINGS and ABG reviewed NOT CANDIDATE for SBTreviewed possible contraindications including Cardiovascular Stability /Sedation Score / FI02/PEEP / ABG / CXR/ secretions Sedation, discussed with RN, RASS on propofol 40 , fentanyl 50 Hospital course: (02/10) 67F admitted for aspiration PNA/sepsis, COPD, ARF. INTUBATED. Was at a rehab for weakness/difficulty with bowel movements. Increasingly worsening breathing so tx to [place] ER. EMS gave duoneb (allergy to albuterol-makes her feel like throat closing-unsure if real allergy). Did vomit/aspirate. Diarrhea recently 02/10-AC 20 - 100% peep 10 , levo 0.06, vaso , propofol 40 , fentanyl 50 02/11-AC 20 - 30% peep 10 , levo , vaso , propofol 30 , fentanyl off, CT abd A/P Acute resp failure - Intubated 02/10 in ER for hypoxia, possible aspiration - cont full vent support - FIO2 improved 30% Shock , supected septic - cont hydration ( EF 50% 2 weeks ago ) - pressors started - cont , to wean - to correct acidosis - cx done , abx started SHANNA - was on lasix after d/c form hospital - ? dehydration component to hypotension /shock - cont hydraion - add bicarb gtt given shock and anuria - repeat bmp in few hours Abd pain for few days N/V loose stool, SHANNA - will need abd images - CT vs US - depending on patien's vitals stability Possible asp PNA -sputum + staph - await cx - cont abx ( might add flagyl if abd ct abnormal ) Elv lactate - sepsis, hypoperfulsion , hypoxia - follow COPD? as baseline / [facility]VS? - was on BIPAP on previous admission - to follow after exctubation Nutritions - ? start TF if CTabd ok Lines : central liibe placed in ER 02/10 , (Central Line Necessity Reviewed) Venegas: 02/10 OG: Nutrition: npo Analgesia: Anxiety/ delirium VTE Prophylaxis: hep sq Stress Ulcer Prophylaxis: ppi Plans in collaboration with bedside consultants and IM MDs. Discussed with RN to reach out if any questions or concerns A total of 31 minutes of critical care time was devoted to this patient today, required to treat and/or prevent further deterioration of critical care condition ( as above ) . I am remotely monitoring this patient from another state. I am unable to do the bedside exam, and history/physical and pertinent information is taken from other notes in the computer and bedside staff. . Sepsis Event Evaluation Height, Weight, BMI Height: 5'7" Weight: 350lbs. 0.0oz. 158.938100de; 62.44 BMI Method:Stated Focused Exam Lactate Level 02/10/23 13:30: Lactic Acid Level 2.67*H 02/10/23 15:51: Lactic Acid Level 2.58*H 02/10/23 19:29: Lactic Acid Level 2.47*H Exam Exam Patient acknowledged, consented, and participated in this virtual visit which was conducted using real time audio/video Vital Signs Date Time Temp Pulse Resp B/P (MAP) Pulse Ox O2 Delivery O2 Flow Rate FiO2 02/11/23 11:07 39.7 02/11/23 11:00 110 27 101/39 (59) 97 Mechanical Ventilator 30.00 02/11/23 10:24 109 70/45 02/11/23 10:00 112 28 97/64 (75) 98 Mechanical Ventilator 30.00 02/11/23 09:30 109 101/71 02/11/23 09:00 107 26 104/62 (76) 95 Mechanical Ventilator 30.00 02/11/23 08:49 176 02/11/23 08:35 97 59/32 02/11/23 08:30 38.0 02/11/23 08:29 101 78/57 02/11/23 08:26 96 78/57 02/11/23 08:25 96 78/57 02/11/23 08:03 106 70/52 02/11/23 08:00 96 Mechanical Ventilator 30 02/11/23 08:00 107 23 70/52 (58) 95 Mechanical Ventilator 30.00 02/11/23 07:02 107 02/11/23 07:00 108 27 92/52 (65) 97 Mechanical Ventilator 30.00 02/11/23 06:00 109 27 89/61 (70) 96 Mechanical Ventilator 30.00 02/11/23 05:54 110 91/53 02/11/23 05:26 110 91/53 02/11/23 05:15 110 28 88/57 (67) 96 Mechanical Ventilator 30.00 02/11/23 04:41 110 91/53 02/11/23 04:02 108 28 95/59 (71) 98 Mechanical Ventilator 30.00 02/11/23 04:00 97 Mechanical Ventilator 30 02/11/23 03:56 36.8 02/11/23 03:00 110 28 91/53 (66) 97 Mechanical Ventilator 30.00 02/11/23 02:53 111 87/51 02/11/23 02:50 111 87/51 02/11/23 02:19 111 27 97 30 02/11/23 02:00 112 28 83/56 (65) 97 Mechanical Ventilator 30.00 02/11/23 01:54 113 95/53 02/11/23 01:33 36.5 02/11/23 01:30 114 28 104/57 (73) 98 Mechanical Ventilator 30.00 02/11/23 01:00 114 28 85/57 (66) 98 Mechanical Ventilator 30.00 02/11/23 01:00 114 02/11/23 00:19 113 95/53 02/11/23 00:00 113 28 95/53 (67) 97 Mechanical Ventilator 30.00 02/11/23 00:00 97 Mechanical Ventilator 30 02/10/23 23:45 112 95/56 02/10/23 23:32 37.2 Mechanical Ventilator 30.00 02/10/23 23:00 113 28 92/61 (71) 98 Mechanical Ventilator 30.00 02/10/23 22:50 112 95/56 02/10/23 22:00 112 28 95/56 (69) 98 Mechanical Ventilator 30.00 02/10/23 21:36 112 93/62 02/10/23 21:17 112 28 98 30 02/10/23 21:00 112 28 91/63 (72) 98 Mechanical Ventilator 30.00 02/10/23 20:49 103 98/66 02/10/23 20:49 103 98/66 02/10/23 20:44 37.5 02/10/23 20:10 103 98/66 02/10/23 20:00 110 28 89/67 (74) 98 Mechanical Ventilator 30.00 02/10/23 20:00 95 Mechanical Ventilator 30 02/10/23 19:45 103 98/66 02/10/23 19:27 37.3 Mechanical Ventilator 30.00 02/10/23 19:04 103 98/66 02/10/23 19:00 104 02/10/23 19:00 104 28 124/103 (110) 96 Mechanical Ventilator 40.00 02/10/23 18:55 103 30 95 35 02/10/23 18:00 113 27 103/58 (73) 98 Mechanical Ventilator 40.00 02/10/23 17:48 109 103/79 02/10/23 17:00 109 28 103/79 (87) 99 Mechanical Ventilator 40.00 02/10/23 16:49 109 76/53 02/10/23 16:10 109 76/53 02/10/23 16:08 109 76/53 02/10/23 16:00 36.9 40.00 02/10/23 16:00 109 28 76/53 (61) 99 Mechanical Ventilator 40.00 02/10/23 16:00 Mechanical Ventilator 100 02/10/23 15:00 107 29 93/68 (76) 99 Mechanical Ventilator 75.00 02/10/23 14:53 107 29 99 45 02/10/23 14:52 109 103/79 02/10/23 14:44 109 103/79 02/10/23 14:01 37.0 103 100 100 02/10/23 14:00 102 28 99/64 (76) 100 Mechanical Ventilator 75.00 02/10/23 13:00 101 26 88/59 (69) 100 Mechanical Ventilator 75.00 02/10/23 13:00 103 134/85 02/10/23 12:45 103 02/10/23 12:14 Mechanical Ventilator 75.00 I & O 02/11/23 07:00 Intake Total 5071 ml Output Total 1700 ml Balance 3371 ml Height & Weight Height: 5'7" Weight: 350lbs. 0.0oz. 158.085682sv; 62.44 BMI Method:Stated General Appearance: Obese, Severe Distress HEENT: PERRL/EOMI, Pharynx Normal Neck: Non Tender, Supple Respiratory: Expiration, Respiratory Distress, Wheezing, Other (Coarse sounds overall with vomitus in her mouth and concerns for aspiration) Cardiovascular: No Murmur, Tachycardia Capillary Refill: Less Than 3 Seconds Extremity: Non Tender, No Calf Tenderness, No Pedal Edema Neurologic/Psychiatric: Alert, Oriented x3, Motor Weakness (Grossly weak) Results Lab Laboratory Tests 02/10/23 08:10 02/10/23 08:46 02/10/23 15:51 02/11/23 04:08 Assessment/Plan Assessment/Plan 1 KERI CALL MD Feb 11, 2023 12:04
--- NOTE | 2023-02-11 12:28 | Progress Note - Hospitalist ---
[facility] 02/11/23 1228: Subjective HPI/CC On Admission Date Seen by Provider: Feb 11, 2023 Time Seen by Provider: 11:00 CC: Acute respiratory failure, aspiration pneumonia Subjective/Events-last exam Patient is still intubated and on ventilator settings of 450/20/10/30. There were no overnight events. Patients BP is consistently running in the low 100/ 60's but vitals are otherwise stable. BUN was found to extremely elevated at 119 this morning. Review of Systems Unable to obtain ROS patient ventilated Focused Exam Lactate Level 02/10/23 13:30: Lactic Acid Level 2.67*H 02/10/23 15:51: Lactic Acid Level 2.58*H 02/10/23 19:29: Lactic Acid Level 2.47*H Objective Exam Vital Signs Vital Signs Date Time Temp Pulse Resp B/P (MAP) Pulse Ox O2 Delivery O2 Flow Rate FiO2 02/11/23 11:07 39.7 02/11/23 11:00 110 27 101/39 (59) 97 Mechanical Ventilator 30.00 02/11/23 08:00 30 Capillary Refill : Less Than 3 Seconds General Appearance: Chronically ill, Moderate Distress, Obese Results/Procedures Lab Laboratory Tests 02/10/23 15:51 02/11/23 04:08 Patient resulted labs reviewed. Assessment/Plan Assessment and Plan Assess & Plan/Chief Complaint Assessment: acute respiratory failure aspiration pneumonia sepsis COPD hypoxia acute renal failure HTN HLD osteoarthritis sleep apnea Plan: Monitor labs and vitals keep on ventilator continue IV antibiotic tx f/u chest x-ray Critical Care: Ventilator Management ROSIE CARDENAS DO 02/11/23 2004: Subjective Subjective/Events-last exam Patient still intubated Updated sister and daughter at the bedside Patient was not doing well at the custodial due to progressive decline Aspiration pneumonia treated with antibiotics Objective Exam General Appearance: Chronically ill, Obese, Other (Intubated and sedated) Respiratory: Lungs Clear, Normal Breath Sounds Cardiovascular: Regular Rate, Rhythm Assessment/Plan Assessment and Plan Assess & Plan/Chief Complaint Assessment: Acute on chronic respiratory failure requiring intubation Aspiration pneumonia Acute kidney injury requiring nephrology consult Dehydration Hypovolemia Hypertension Plan: IV fluid Nephrology consult appreciated Ventilator management Antibiotics Supervisory-Addendum Brief Verification & Attestation Participated in pt care: history, MDM, physical Personally performed: exam, history, MDM, supervision of care Care discussed with: Medical Student Procedures: n/a Results interpretation: Verified all documentation Verification and Attestation of Medical Student E/M Service A medical student performed and documented this service in my presence. I reviewed and verified all information documented by the medical student and made modifications to such information, when appropriate. I personally performed the physical exam and medical decision making. Rosie Cardenas, Feb 11, 2023,20:02 VICENTE Feb 11, 2023 12:28 ROSIE CARDENAS DO Feb 11, 2023 20:04
--- NOTE | 2023-02-11 14:44 | Consultation ---
History of Present Illness History of Present Illness Patient Consulted On(juanito/time) 02/11/23 14:42 Date Seen by Provider: Feb 11, 2023 Time Seen by Provider: 14:42 Reason for Visit: shanna History of Present Illness Mrs. Garrett is a very pleasant 67 y/o WF with h/o obesity, HTN, HLD, TIA, arthritis, and cad who was admitted with admitted with abd pain and n/v. Pt has been on ivf and bp responds well. Also on levophed gtt and vaso gtt. Overall requirements going down. On the vent with 30% fio2. Has not trialed with SBT. Also reviewing [id number] 100ml/hr and ns 125ml/hr. Urine outpt maintaining. Having intermittent fevers. No nsaids. receiving Zosyn and vanc. Allergies and Home Medications Allergies Coded Allergies: albuterol (Unverified Allergy, Severe, Anaphylaxis, 01/31/23) Patient states albuterol causes her to feel like throat is closing. States that she was tested here for it prior but is unsure when. Tetracyclines (Verified Allergy, Unknown, NAUSEA, 02/20/15) adhesive tape (Verified Allergy, Unknown, HIVES, 02/20/15) sulfamethoxazole (Verified Allergy, Unknown, RASH, 02/20/15) trimethoprim (Verified Allergy, Unknown, RASH, 02/20/15) Patient Home Medication List Home Medication List Reviewed: Yes Acetaminophen (Tylenol) 325 Mg Tablet, 650 MG PO Q4H PRN for PAIN-MILD (1-4), (Reported) Entered as Reported by: PAPI SCOTT on 02/10/23 1536 Last Action: Reviewed Aspirin (Aspirin) 325 Mg Tablet, 325 MG PO DAILY Prescribed by: ELENI SINGH on 02/04/231199 Last Action: Reviewed Cetirizine HCl (Cetirizine HCl) 10 Mg Tablet, 5 MG PO DAILY Prescribed by: ELENI SINGH on 02/04/231199 Last Action: Reviewed Cholecalciferol (Vitamin D3) (Vitamin D3) 125 Mcg (5000 Unit) Tablet, 125 MCG PO DAILY Prescribed by: ELENI SINGH on 02/04/23 1200 Last Action: Reviewed Cinnamon Bark (Cinnamon) 500 Mg Capsule, 1,000 MG PO DAILY, (Reported) Entered as Reported by: PAPI SCOTT on 02/10/231535 Last Action: Reviewed Enalapril Maleate (Enalapril Maleate) 20 Mg Tablet, 20 MG PO DAILY Prescribed by: ELENI SINGH on 02/04/231199 Last Action: Reviewed Furosemide (Lasix) 40 Mg Tablet, 40 MG PO DAILY@1800 Prescribed by: ELENI SINGH on 02/04/231199 Last Action: Reviewed Levalbuterol HCl (Levalbuterol HCl) 1.25 Mg/3 Ml Vial.neb, 1.25 MG INH RTQ8HR Prescribed by: ELENI SINGH on 02/04/231199 Last Action: Reviewed [place]-3/Dha/Epa/Fish Oil (Fish Oil 1,400 mg Softgel) 850 Mg-1,400 Mg Capsule, 1 EACH PO DAILY Prescribed by: ELENI SINGH on 02/04/231199 Last Action: Reviewed Polyethylene Glycol 3350 (Miralax) 17 Gram Powd.pack, 17 GM PO Q12H PRN for CONSTIPATION-2ND LINE, (Reported) Entered as Reported by: PAPI SCOTT on 02/10/231535 Last Action: Reviewed Potassium Chloride (Klor-Con M20) 20 Meq Tab.er.prt, 20 MEQ PO DAILY@1800 Prescribed by: ELENI SINGH on 02/04/231199 Last Action: Reviewed Rosuvastatin Calcium (Rosuvastatin Calcium) 10 Mg Tablet, 10 MG PO HS Prescribed by: ELENI SINGH on 02/04/231199 Last Action: Reviewed Vitamin B Complex & Vit C No.3 (B Complex with Vitamin C) 15-10-300 Capsule, 1 EACH PO DAILY Prescribed by: ELENI SINGH on 02/04/231199 Last Action: Reviewed Discontinued Medications Acetaminophen (Acetaminophen) 325 Mg Tablet, 650 MG PO Q4H PRN for PAIN Discontinued Reason: Duplicate Order Prescribed by: ELENI SINGH on 02/04/231199 Last Action: Discontinued Cinnamon Bark (Cinnamon) 500 Mg Capsule, 1,200 MG PO DAILY Discontinued Reason: Duplicate Order Prescribed by: ELENI SINGH on 02/04/231199 Last Action: Discontinued Polyethylene Glycol 3350 (Polyethylene Glycol 3350) 17 Gram Powd.pack, 17 GM PO BID PRN for CONSTIPATION-1ST LINE Discontinued Reason: No Longer Taking Prescribed by: ELENI SINGH on 02/04/23 1200 Last Action: Discontinued Past Ltnbjis-Qelgak-Zmymvy Hx Patient Social History Tobacco Use?: Yes Tobacco type used: Cigarettes Smoking Status: Current Everyday Smoker Substance use?: No Alcohol Use?: No Pt feels they are or have been: No Immunizations Up To Date Tetanus Booster (TDap): Less than 5yrs Seasonal Allergies Seasonal Allergies: No Past Medical History Surgery/Hospitalization HX: HX OF COVID JUL 14. COLON RESECTION, HYST. HTN, CHF, Surgeries: Yes Abdominal, Cardiac (Left internal carotid endarterectomy - had 95% stenosis ), Hysterectomy Respiratory: Yes Sleep Apnea Currently Using CPAP: No Currently Using BIPAP: Yes Cardiac: Yes High Cholesterol, Hypertension Neurological: Yes TIA Gastrointestinal: Yes Chronic Constipation Musculoskeletal: Yes Arthritis HEENT: Yes Cataract Cancer: Yes Uterine What Type of Treatment Did You: Surgical Intervention Family Medical History Reviewed Nursing Family Hx Arthritis 19 MOTHER Asthma 19 MOTHER Cardiovascular disease 19 FATHER Cataracts 19 MOTHER Colon cancer G8 BROTHER Diabetes mellitus 19 MOTHER Hypertension 19 MOTHER G8 SISTER Respiratory disorder 19 FATHER (LUNG CANCER) No Pertinent Family Hx Review of Systems-General Constitutional: see HPI Physical Exam-General Problems Physical Exam Vital Signs Vital Signs - First Documented 02/10/23 02/10/23 08:05 09:10 Temp 37.1 Pulse 106 Resp 42 B/P (MAP) 87/57 (67) Pulse Ox 89 O2 Delivery OxyMask O2 Flow Rate 10.00 FiO2 100 Capillary Refill : Less Than 3 Seconds Assessment/Plan Assessment/Plan Admission Diagnosis/Plan SHANNA due to hypotension, infection continue supportive care avoiding nephrotoxins renally dose meds monitor vanc troughs continue bicarb and ns met acidosis lactic acid elevated due hypoperfusion continue bicarb gtt until repeat labs today 22 or higher then stop bicarb gtt acute resp failure on vent cc managing 30% fio2 stop ns if requirements rise Thank you for allowing me to participate in the care of this patient. Visit conducted via secure video chat. Admission Status: Inpatient Order (span 2 midnights) HARRY VEGAS MD Feb 11, 2023 14:44
[2023-02-11] MEDS: fentaNYL DRIP PRE-MIX 250 ML IV SCH (15:18)
--- NOTE | 2023-02-11 15:29 | Consultation-Cardiology ---
HPI-Cardiology Cardiology Consultation Date of Consultation 02/11/23 Date of Admission Time Seen by Provider: 11:40 Indication: elevated troponin HPI Patient is a 67 y/o female with hx of COPD, HTN, HLP. Admitted to ICU and on ventilator. HPI is obtained from review of medical records. Patient presented to the ER from [place] with complaints of increasing dyspnea on exertion, intermittent fevers and abdominal pain over the past week. Denied any chest pain or syncope. Currently in ICU on ventilator, dx with acute respiratory failure and aspiration pneumonia. Work up done in ER showing mildly elevated troponin. No known hx of CAD Home Medications & Allergies Allergies: Coded Allergies: albuterol (Unverified Allergy, Severe, Anaphylaxis, 01/31/23) Patient states albuterol causes her to feel like throat is closing. States that she was tested here for it prior but is unsure when. Tetracyclines (Verified Allergy, Unknown, NAUSEA, 02/20/15) adhesive tape (Verified Allergy, Unknown, HIVES, 02/20/15) sulfamethoxazole (Verified Allergy, Unknown, RASH, 02/20/15) trimethoprim (Verified Allergy, Unknown, RASH, 02/20/15) Home Medication List Reviewed: Yes TJS-Wgjoxl-Oevsdg Hx Patient Social History Smoking Status: Current Everyday Smoker Type Used: Cigarettes Recent Hopitalizations: No Alcohol Use?: No Immunizations Up To Date Tetanus Booster (TDap): Less than 5yrs Past Medical History HTN, HLP Family Medical History Significant Family History: No Pertinent Family Hx Family History: Arthritis 19 MOTHER Asthma 19 MOTHER Cardiovascular disease 19 FATHER Cataracts 19 MOTHER Colon cancer G8 BROTHER Diabetes mellitus 19 MOTHER Hypertension 19 MOTHER G8 SISTER Respiratory disorder 19 FATHER (LUNG CANCER) Review of Systems-General Review of Systems ROS-Unable to Obtain: unable to obtain Constitutional: see HPI Reviewed Test Results Reviewed Test Results Lab Laboratory Tests 02/10/23 15:51: Sodium Level 134L, Potassium Level 4.7, Chloride Level 99, Carbon Dioxide Level 17L, Anion Gap 18H, Blood Urea Nitrogen 124*H, Creatinine 4.29#H, Estimat Glomerular Filtration Rate 11, BUN/Creatinine Ratio 29, Glucose Level 240H, Lactic Acid Level 2.58*H, Calcium Level 7.0L 02/10/23 17:39: Glucometer 248H 02/10/23 19:29: Lactic Acid Level 2.47*H 02/10/23 23:34: Glucometer 264H 02/11/23 04:08: White Blood Count 21.4H, Red Blood Count 4.46, Hemoglobin 13.5, Hematocrit 40, Mean Corpuscular Volume 90, Mean Corpuscular Hemoglobin 30, Mean Corpuscular Hemoglobin Concent 34, Red Cell Distribution Width 13.4, Platelet Count 268, Mean Platelet Volume 10.4, Immature Granulocyte % (Auto) 3, Neutrophils (%) (Auto) 88H, Lymphocytes (%) (Auto) 5L, Monocytes (%) (Auto) 3, Eosinophils (%) (Auto) 0, Basophils (%) (Auto) 0, Neutrophils # (Auto) 18.9H, Lymphocytes # (Auto) 1.2, Monocytes # (Auto) 0.6, Eosinophils # (Auto) 0.0, Basophils # (Auto) 0.0, Immature Granulocyte # (Auto) 0.7H, Sodium Level 135, Potassium Level 4.6, Chloride Level 99, Carbon Dioxide Level 16L, Anion Gap 20H, Blood Urea Nitrogen 119*H, Creatinine 4.14H, Estimat Glomerular Filtration Rate 11, BUN/Creatinine Ratio 29, Glucose Level 291H, Calcium Level 6.4L, Corrected Calcium 7.7L, Phosphorus Level 5.4H, Magnesium Level 1.6, Total Bilirubin 0.4, Aspartate Amino Transf (AST/SGOT) 212H, Alanine Aminotransferase (ALT/SGPT) 97H, Alkaline Phosphatase 64, Total Protein 5.8L, Albumin 2.4L, Smear Scan YES 02/11/23 05:02: Blood Gas Puncture Site LR, Blood Gas Patient Temperature UNK, Arterial Blood pH 7.32*L, Arterial Blood Partial Pressure CO2 34L, Arterial Blood Partial Pressure O2 87, Arterial Blood HCO3 17*L, Arterial Blood Total CO2 17.8L, Arterial Blood Oxygen Saturation 94, Arterial Blood Base Excess -8.2L, Jack Test YES-POS, Blood Gas Ventilator Setting YES, Blood Gas Inspired Oxygen 30% 02/11/23 11:20: Vancomycin Level Trough 17.4 02/11/23 11:30: Glucometer 251H Microbiology 02/10/23 Gram Stain - Final, Resulted 02/10/23 Sputum Culture - Preliminary, Resulted Staphylococcus aureus 02/10/23 Blood Culture - Preliminary, Resulted Gram Positive Cocci in Cluster See Comments 02/10/23 Urine Culture - Final, Complete NO GROWTH ECG Impression ECG Initial ECG Rhythm: S.Tach Physical Exam Physical Exam Vital Signs Vital Signs - First Documented 02/10/23 02/10/23 08:05 09:10 Temp 37.1 Pulse 106 Resp 42 B/P (MAP) 87/57 (67) Pulse Ox 89 O2 Delivery OxyMask O2 Flow Rate 10.00 FiO2 100 Capillary Refill : Less Than 3 Seconds Height, Weight, BMI Height: 5'7" Weight: 350lbs. 0.0oz. 158.366328yq; 62.44 BMI Method:Stated General Appearance: Chronically ill, Obese, Other (sedated and intubated) HEENT: PERRL/EOMI, Pharynx Normal Neck: Non Tender, Supple Respiratory: Expiration, Respiratory Distress, Wheezing, Other (Coarse sounds overall with vomitus in her mouth and concerns for aspiration) Cardiovascular: No Murmur, Tachycardia Gastrointestinal: Soft, Distended, Other (Morbidly obese and difficult exam) Back: No CVA Tenderness (L), No CVA Tenderness (R) Extremity: Non Tender, No Calf Tenderness, No Pedal Edema Neurologic/Psychiatric: Alert, Oriented x3, Motor Weakness (Grossly weak) A/P-Cardiology Admission Diagnosis NSTEMI Acute respiratory failure Aspiration pneumonia Sinus tachycardia Assessment/Plan Minimally elevated troponin, NSTEMI, likely type II CT secondary to hypoxemia, SHANNA, tachycardia. Will continue to monitor 2D Echo done 02/03/23 showing severe concentric hypertropy, EF 55-60%. PA 20mmHg. Aortic valve sclerosis without stenosis. Acute respiratory failure, sedated and intubated. Management per medical services Aspiration pneumonia, management per medical services. Sinus tachycardia, likely d/t respiratory failure and pneumonia. Multiple episodes of paroxysmal atrial tachycardia, short run of wide-complex tachycardia, most probably atrial tachycardia with aberrant conduction Will use IV beta-blockers with parameters and monitor tolerance and response SHANNA, Dr. Shellie Armando consulted and following. Continue to monitor renal function HTN, continue to monitor blood pressure HLP, monitored as outpatient. Hx of TIA, maintained on ASA Obesity Thank you for allowing us to participate in the management of Ms. Garrett. This is Mendy Davis PA-C, as a scribe for Dr. Felix. Patient was seen and evaluated with Mendy, I interviewed the family and examined the patient, reviewed the record History is limited to the family. Patient is currently ventilator dependent. Has aspiration pneumonia and receiving antibiotic She has minimal elevation in troponin, most likely type II CT. Had multiple episodes of paroxysmal atrial tachycardia which will be monitored at this time and start IV beta-estevan if patient can tolerate it. MENDY RABAGO Feb 11, 2023 15:29 AVIS FELIX MD Feb 11, 2023 16:55
--- NOTE | 2023-02-11 15:43 | Diagnostic Imaging Report ---
INDICATION: Elevated liver function tests. PROCEDURE: Ultrasound abdomen complete. TECHNIQUE: Multiple real-time grayscale images were obtained of the abdomen in various projections. FINDINGS: The liver is enlarged at 19.5 cm. The portal vein is patent and shows normal direction of flow. There is diffuse increased echogenicity throughout the liver consistent with hepatic steatosis. Gallbladder appears hydropic measuring approximately 11 x 5 x 5 cm. Gallbladder wall is normal in thickness. No definite stones or sludge are identified. Extrahepatic bile duct was poorly visualized due to overlying bowel gas. The pancreas, spleen, aorta, and IVC were all obscured due to patient body habitus and overlying bowel gas. Right kidney measures 13.1 cm, and left kidney measures 12.2 cm. No definite hydronephrosis is identified. There is no ascites. IMPRESSION: Severely limited study due to overlying bowel gas and patient body habitus. There is hepatomegaly and hepatic steatosis as well as gallbladder hydrops. No other significant normality is detected. Dictated by: Dictated on workstation # [id number]
[2023-02-11] MEDS ORDERED: LACTATED RINGERS 1,000 ML 1,000 ML IV SCH (16:45)
[2023-02-11 17:14] LABS: POTASSIUM 4.7 MMOL/L (3.6-5.0)
[2023-02-11 17:15] LABS: CALCIUM 6.1 MG/DL (8.5-10.1)
[2023-02-11 17:19] LABS: CREATININE SERUM 4.51 MG/DL (0.60-1.30)
[2023-02-11] MEDS: meTOprolol INJECTION 5 MG/5 ML VIAL IV SCH ×2 (18:12→23:26)
[2023-02-11] MEDS ORDERED: LACTATED RINGERS 1,000 ML 1,000 ML IV NR (18:15)
[2023-02-11] MEDS ORDERED: ACETAMINOPHEN 650 MG SUPPOSITORY PR PRN (18:15)
[2023-02-11 18:35] VITALS: BP 80/51
[2023-02-11 21:36] VITALS: BP 85/37
[2023-02-12] MEDS: NOREPINEPHRINE INJECTION 16 MG in NS (IVPB) 250 ML 234 ML IV PRN ×7 (00:27→15:32)
[2023-02-12] MEDS: PIPERACILLIN/Tazobactam 4.5 GM in NS (IVPB) 100 ML 100 ML IV SCH (02:32)
[2023-02-12] MEDS: RT-LEVALBUTEROL 1.25 MG/3 ML NEBS (NON-FORMULARY) INH SCH ×3 (02:51→14:41)
[2023-02-12 02:52] VITALS: BP 82/43
[2023-02-12 03:08] LABS: ABG BASE EXCESS -7.5 MMOL/L (-2.5-2.5); ABG OXYGEN SATURATION 95 % (94-100); ABG PCO2 50 MMHG (35-45); ABG PO2 102 MMHG (79-93); ABG TCO2 20.4 MMOL/L (21.0-31.0)
[2023-02-12 03:09] LABS: ALLENS TEST YES-POS; INSPIRED O2 35%; PATIENT TEMP 37.4; VENTILATOR YES
[2023-02-12 03:10] LABS: ABG PH 7.21 (7.37-7.43)
[2023-02-12 04:21] LABS: BASOPHILS % (AUTO) 0 % (0-10); EOSINOPHILS % (AUTO) 0 % (0-10); HEMATOCRIT 39 % (35-52); HEMOGLOBIN 13.1 g/dL (11.5-16.0); LYMPHOCYTES # (AUTO) 1.6 10^3/uL (1.0-4.0); LYMPHOCYTES % (AUTO) 7 % (12-44); MEAN CORPUSCULAR HEMOGLOBIN 31 pg (25-34); MEAN CORPUSCULAR HGB CONC 34 g/dL (32-36); MEAN CORPUSCULAR VOLUME 91 fL (80-99); MEAN PLATELET VOLUME 9.9 fL (9.0-12.2); MONOCYTES # (AUTO) 0.5 10^3/uL (0.0-1.0); MONOCYTES % (AUTO) 2 % (0-12); NEUTROPHILS # (AUTO) 19.7 10^3/uL (1.8-7.8); NEUTROPHILS % (AUTO) 88 % (42-75); PLATELET COUNT 200 10^3/uL (130-400); WHITE BLOOD COUNT 22.4 10^3/uL (4.3-11.0)
[2023-02-12 04:42] LABS: ALBUMIN 2.1 GM/DL (3.2-4.5); BILIRUBIN,TOTAL 0.5 MG/DL (0.1-1.0); CREATININE SERUM 4.84 MG/DL (0.60-1.30); MAGNESIUM 1.6 MG/DL (1.6-2.4); PHOSPHORUS 8.1 MG/DL (2.3-4.7); POTASSIUM 4.8 MMOL/L (3.6-5.0); TOTAL PROTEIN 5.6 GM/DL (6.4-8.2)
[2023-02-12 04:55] LABS: CALCIUM 5.9 MG/DL (8.5-10.1)
[2023-02-12] MEDS: MAGNESIUM 1 GM/100 ML IVPB 100 ML IV SCH (05:38)
[2023-02-12] MEDS: POTASSIUM CL 10MEQ/50ML IVPB 50 ML IV SCH (05:38)
[2023-02-12] MEDS: meTOprolol INJECTION 5 MG/5 ML VIAL IV SCH ×2 (05:39→11:57)
[2023-02-12] MEDS: POTASSIUM CHLORIDE 20 MEQ TABLET PO SCH (05:39)
[2023-02-12] MEDS: inSUlin ASPART 1 UNIT/0.01 ML (PER UNIT) SC SCH ×2 (05:50→11:57)
[2023-02-12] MEDS: VASOPRESSIN INJECTION 20 UNIT in NS (IVPB) 100 ML 100 ML IV SCH (06:11)
[2023-02-12] MEDS: NS IV 1000 ML 1,000 ML IV SCH ×2 (06:11→14:33)
--- NOTE | 2023-02-12 08:17 | Cardiology Progress Note ---
Subjective Date Seen by Provider: Feb 12, 2023 Time Seen by Provider: 08:15 Subjective/Events-last exam Patient is sedated and intubated. Unable to provide history Review of Systems General: Other (Unable to provide review of system) Focused Exam Lactate Level 02/10/23 15:51: Lactic Acid Level 2.58*H 02/10/23 19:29: Lactic Acid Level 2.47*H 02/11/23 16:50: Lactic Acid Level 1.79 Objective-Cardiology Exam Last Set of Vital Signs Vital Signs 02/12/23 02/12/23 02/12/23 04:09 06:00 06:46 Temp 36.8 Pulse 94 Resp 20 B/P (MAP) 112/69 Pulse Ox 93 O2 Delivery Mechanical Ventilator O2 Flow Rate 35.00 FiO2 35 I&O Intake and Output 02/11/23 23:59 Intake Total 32435 ml Output Total 1305 ml Balance 48560 ml Intake Oral 0 ml IV Total 01420 ml Other 280 ml Output Urine Total 1305 ml General: Other (Sedated and intubated) HEENT: Atraumatic Lungs: Normal Air Movement, Other (Bilateral rhonchi) Heart: Regular Rate, Normal S1, Normal S2, Other (Systolic murmur at the left sternal border) Abdomen: Normal Bowel Sounds Extremities: No Clubbing, No Cyanosis Skin: No Rashes, No Breakdown Neuro: Other (Dated and intubated) Psych/Mental Status: Other (Sedated and intubated) Results Lab Laboratory Tests 02/11/23 16:50 02/12/23 04:13 A/P-Cardiology Admission Diagnosis NSTEMI Acute respiratory failure Aspiration pneumonia Sinus tachycardia Assessment/Plan Minimally elevated troponin, NSTEMI, likely type II [place] secondary to hypoxemia, SHANNA, tachycardia. Will continue to monitor 2D Echo done 02/03/23 showing severe concentric hypertropy, EF 55-60%. PA 20mmHg. Aortic valve sclerosis without stenosis. Acute respiratory failure, sedated and intubated. Management per medical ser vices Aspiration pneumonia, management per medical services. Sinus tachycardia, likely d/t respiratory failure and pneumonia. Multiple episodes of paroxysmal atrial tachycardia, short run of wide-complex tachycardia, most probably atrial tachycardia with aberrant conduction Will use IV beta-blockers with parameters and monitor tolerance and response SHANNA, Dr. Shellie Armando consulted and following. Continue to monitor renal function HTN, continue to monitor blood pressure HLP, monitored as outpatient. Hx of TIA, maintained on ASA Obesity AVIS LIVINGSTON MD Feb 12, 2023 08:17
[2023-02-12] MEDS: PANTOPRAZOLE INJECTION 40 MG VIAL IV SCH (08:52)
[2023-02-12] MEDS: DOCUSATE SODIUM 100 MG/10 ML UDC ORAL SOLN PO SCH (08:52)
[2023-02-12] MEDS: SENNOSIDES 8.6 MG (SENOKOT) TAB PO SCH (08:52)
[2023-02-12] MEDS: MICONAZOLE 2% POWDER 90 GM TOP SCH (08:52)
[2023-02-12] MEDS: fentaNYL DRIP PRE-MIX 250 ML IV SCH (10:30)
--- NOTE | 2023-02-12 10:43 | Tele-ICU Progress Note ---
Subjective Date Seen by a Provider: Feb 12, 2023 Time Seen by a Provider: 10:43 Subjective/Events-last exam (Tele-ICU Physician , Progress Note ) Service provided via interactive audio and video telecommunications E-CARE system to a patient admitted to ICU bed in [facility]. Patient is seen today due to persistent need of ICU care Available chart/ vitals / labs / Images reviewed Video assessment done using teleICU camera, rest of exam as per RN Discussed with RN Events overnight : Afebrile hemodynamically stable Respiratory - 30% I/O =++ Drips: NS 125 and bicarb gtt 3 amp 100 cc Pressors- levo vaso VENT SETTINGS and ABG reviewed NOT CANDIDATE for SBTreviewed possible contraindications including Cardiovascular Stability /Sedation Score / FI02/PEEP / ABG / CXR/ secretions Sedation, discussed with RN, RASS on propofol 30 , fentanyl 50 Hospital course: (02/10) 67F admitted for aspiration PNA/sepsis, COPD, ARF. INTUBATED. Was at a rehab for weakness/difficulty with bowel movements. Increasingly worsening breathing so tx to [place] ER. EMS gave duoneb (allergy to albuterol-makes her feel like throat closing-unsure if real allergy). Did vomit/aspirate. Diarrhea recently 02/10-AC 20 - 100% peep 10 , levo 0.06, vaso , propofol 40 , fentanyl 50 02/11-AC 20 - 30% peep 10 , levo , vaso , propofol 30 , fentanyl off, CT CAN NOT BE DONE due to body habitus - US done - limited 02/12- AC 20 - 450- 30% peep 10 , levo 0.08 , vaso , propofol 20 , fentanyl 50 A/P Acute resp failure - Intubated 02/10 in ER for hypoxia, possible aspiration - cont full vent support - FIO2 improved 30% - increass rr to 26 to compensate for acidosis Shock , supected septic - cont hydration ( EF 50% 2 weeks ago ) - pressors started - cont , to wean - to correct acidosis - cx done , abx started SHANNA - was on lasix after d/c from hospital - ? dehydration component to hypotension /shock - RENAL CONSULTED - cont hydraion - bicarb gtt -given anuria consider diuretics - await renal recom Abd pain for few days N/V loose stool, SHANNA - CT CAN NOT BE DONE due to body habitus - US done - limited Possible asp PNA -sputum + MSSA - cont abx , stop vanco Elv lactate - sepsis, hypoperfulsion , hypoxia - normalized Elv LFT - presumed shock liver - to follow - US 02/01- diffuse increased echogenicity throughout the liver consistent with hepatic steatosis. Gallbladder wall is normal in thickness. No definite stones or sludge are identified. Extrahepatic bile duct was poorly visualized bowel gas COPD? as baseline / OHVS? - was on BIPAP on previous admission - to follow after exctubation Nutritions - ? start TF if CTabd ok Lines : central liibe placed in ER 02/10 , (Central Line Necessity Reviewed) Venegas: 02/10 OG: Nutrition: npo today with large LIS output Analgesia: Anxiety/ delirium VTE Prophylaxis: hep sq Stress Ulcer Prophylaxis: ppi Plans in collaboration with bedside consultants and IM MDs. Discussed with RN to reach out if any questions or concerns A total of 32 minutes of critical care time was devoted to this patient today, required to treat and/or prevent further deterioration of critical care condition ( as above ) . I am remotely monitoring this patient from another state. I am unable to do the bedside exam, and history/physical and pertinent information is taken from other notes in the computer and bedside staff. . Sepsis Event Evaluation Height, Weight, BMI Height: 5'7" Weight: 350lbs. 0.0oz. 158.746330tn; 61.37 BMI Method:Stated Focused Exam Lactate Level 02/10/23 15:51: Lactic Acid Level 2.58*H 02/10/23 19:29: Lactic Acid Level 2.47*H 02/11/23 16:50: Lactic Acid Level 1.79 Exam Exam Patient acknowledged, consented, and participated in this virtual visit which was conducted using real time audio/video Vital Signs Date Time Temp Pulse Resp B/P (MAP) Pulse Ox O2 Delivery O2 Flow Rate FiO2 02/12/23 08:57 86 89/50 02/12/23 08:55 87 89/50 02/12/23 08:00 94 Mechanical Ventilator 35 02/12/23 07:00 96 02/12/23 06:46 94 112/69 02/12/23 06:11 94 112/69 02/12/23 06:00 36.8 92 20 105/62 (76) 93 Mechanical Ventilator 35.00 02/12/23 05:00 37.0 94 20 112/69 (83) 93 Mechanical Ventilator 35.00 02/12/23 04:55 98 82/43 02/12/23 04:52 98 82/43 02/12/23 04:09 93 Mechanical Ventilator 35 02/12/23 04:00 37.3 87 20 106/63 (77) 94 Mechanical Ventilator 35.00 02/12/23 03:00 37.4 99 20 105/48 (67) 93 Mechanical Ventilator 35.00 02/12/23 02:52 98 20 93 35 02/12/23 02:41 97 85/60 02/12/23 02:37 97 85/60 02/12/23 02:00 37.5 98 20 102/48 (66) 93 Mechanical Ventilator 35.00 02/12/23 01:00 37.7 99 20 96/58 (71) 93 Mechanical Ventilator 35.00 02/12/23 01:00 100 02/12/23 00:27 97 85/60 02/12/23 00:27 97 85/60 02/12/23 00:00 38.0 97 20 85/60 (68) 93 Mechanical Ventilator 35.00 02/11/23 23:56 38.0 02/11/23 23:45 Mechanical Ventilator 35.00 02/11/23 23:44 93 Mechanical Ventilator 35 02/11/23 23:27 99 73/60 02/11/23 23:26 38.1 02/11/23 23:00 38.2 99 20 73/60 (64) 93 Mechanical Ventilator 30.00 02/11/23 22:41 101 85/37 02/11/23 22:40 101 85/37 02/11/23 22:00 38.0 101 20 79/53 (62) 92 Mechanical Ventilator 30.00 02/11/23 21:36 101 25 94 30 02/11/23 21:00 38.0 105 20 87/59 (68) 91 Mechanical Ventilator 30.00 02/11/23 20:27 105 72/56 02/11/23 20:00 38.7 93 20 84/53 (63) 93 Mechanical Ventilator 30.00 02/11/23 20:00 91 Mechanical Ventilator 30 02/11/23 19:28 105 72/56 02/11/23 19:27 105 72/56 02/11/23 19:27 105 72/56 02/11/23 19:18 105 72/56 02/11/23 19:00 39.0 107 20 83/56 (65) 92 Mechanical Ventilator 30.00 02/11/23 19:00 106 02/11/23 18:55 105 72/56 02/11/23 18:35 106 21 91 30 02/11/23 18:00 106 20 69/57 (61) 93 Mechanical Ventilator 30.00 02/11/23 18:00 94 Mechanical Ventilator 30 02/11/23 17:55 105 82/55 02/11/23 17:15 104 90/65 02/11/23 17:00 104 20 87/54 (65) 93 Mechanical Ventilator 30.00 02/11/23 16:30 38.7 02/11/23 16:00 101 20 88/49 (62) 94 Mechanical Ventilator 30.00 02/11/23 16:00 94 Mechanical Ventilator 30 02/11/23 15:48 101 80/53 02/11/23 15:47 101 80/53 02/11/23 15:41 39.0 02/11/23 15:18 108 90/57 02/11/23 15:00 110 20 89/57 (68) 93 Mechanical Ventilator 30.00 02/11/23 14:00 109 21 95/54 (68) 96 Mechanical Ventilator 30.00 02/11/23 13:10 105 105/51 02/11/23 13:01 109 77/45 02/11/23 13:00 108 22 105/51 (69) 96 Mechanical Ventilator 30.00 02/11/23 13:00 208 02/11/23 12:45 104 02/11/23 12:30 39.2 02/11/23 12:30 111 107/61 02/11/23 12:00 98 Mechanical Ventilator 30 02/11/23 12:00 109 25 99/64 (76) 97 Mechanical Ventilator 30.00 02/11/23 11:45 39.3 02/11/23 11:40 39.3 02/11/23 11:07 39.7 02/11/23 11:05 39.7 02/11/23 11:00 110 27 101/39 (59) 97 Mechanical Ventilator 30.00 02/11/23 10:45 110 23 97 30 l I & O 02/12/23 07:00 Intake Total 06464 ml Output Total 545 ml Balance 06135 ml Height & Weight Height: 5'7" Weight: 350lbs. 0.0oz. 158.812446bi; 61.37 BMI Method:Stated General Appearance: Chronically ill, Obese, Other (Intubated and sedated) HEENT: PERRL/EOMI, Pharynx Normal Neck: Non Tender, Supple Respiratory: Lungs Clear, Normal Breath Sounds Cardiovascular: Regular Rate, Rhythm Capillary Refill: Less Than 3 Seconds Extremity: Non Tender, No Calf Tenderness, No Pedal Edema Neurologic/Psychiatric: Alert, Oriented x3, Motor Weakness (Grossly weak) Results Lab Laboratory Tests 02/10/23 15:51 02/11/23 04:08 02/11/23 16:50 02/12/23 04:13 Assessment/Plan Assessment/Plan 1 KERI CALL MD Feb 12, 2023 10:43
[2023-02-12] MEDS ORDERED: morphine INJ 10 MG/ML 1ML (SYR OR VIAL) IVP PRN (11:30)
--- NOTE | 2023-02-12 12:11 | Progress Note ---
VICENTE 02/12/23 1210: Progress Note Hospital Course: A 67 y/o female with a history of morbid obesity, COPD, HTN, HLD, TIA, arthritis, and cardiac stenosis arrived by EMS with abdominal pain and SOB from [facility]. Her family reported her having very little bowel movements for the past week and her abdominal pain had become progressively worse the week leading up to her admission. Patient was in respiratory distress on arrival, but reported no chest pain. Initial labs showed elevated WBC count, troponin- likely from hypoxia, and SHANNA. No UTI was noted. Sepsis protocol was initiated with concern for aspiration pneumonia. She expressed her desire to be intubated while in the ED so she was intubated, moved to ICU, and was started on IV Zosyn, vancomycin, and was sedated with propofol. Chest X- ray indicated respiratory failure and mild cardiac enlargement, and later labs showed acute renal failure along with elevated liver enzymes and glucose. On 02/12/23 patient was on day 3 of ventilation and labs had been progressively declining with BP consistently in the 90's/ 60's while on vasopressors. Her condition was discussed with family and pressors were stopped. Patient was given morphine and Lorazepam and terminally extubated on 02/12/23. ROSIE CARDENAS DO 02/12/230: Supervisory-Addendum Brief Verification & Attestation Participated in pt care: history, MDM, physical Personally performed: exam, history, MDM, supervision of care Care discussed with: Medical Student Procedures: n/a Results interpretation: Verified all documentation Verification and Attestation of Medical Student E/M Service A medical student performed and documented this service in my presence. I reviewed and verified all information documented by the medical student and made modifications to such information, when appropriate. I personally performed the physical exam and medical decision making. Rosie Cardenas, Feb 12, 2023,21:10 VICENTE Feb 12, 2023 12:10 ROSIE CARDENAS DO Feb 12, 2023 21:10
[2023-02-12] MEDS: SODIUM BICARBONATE 8.4% SYR 150 MEQ in D5W 1,000 ML IV SOLUTION 1,000 ML IV SCH (13:09)
[2023-02-12 14:41] VITALS: BP 110/65
[2023-02-12] MEDS ORDERED: PIPERACILLIN/Tazobactam 4.5 GM in NS (IVPB) 100 ML 100 ML IV SCH (15:00)
[2023-02-12 15:32] VITALS: BP 98/55
--- NOTE | 2023-02-12 18:51 | Discharge Summary ---
Discharge Summary Hospital Course Was the Problem List Reviewed?: Yes Problems/Dx: (1) Respiratory failure (2) Septic shock (3) Aspiration pneumonia (4) Acute kidney injury (5) Oliguria (6) Obesity hypoventilation syndrome Hospital Course Date of Admission: Feb 10, 2023 at 10:12 Admission Diagnosis : Family Physician/Provider: [place] Date of Discharge: 02/12/23 Discharge Diagnosis: [ ] Hospital Course: Hospital Course: A 67 y/o female with a history of morbid obesity, COPD, HTN, HLD, TIA, arthritis, and cardiac stenosis arrived by EMS with abdominal pain and SOB from [facility]. Her family reported her having very little bowel movements for the past week and her abdominal pain had become p rogressively worse the week leading up to her admission. Patient was in respiratory distress on arrival, but reported no chest pain. Initial labs showed elevated WBC count, troponin- likely from hypoxia, and SHANNA. No UTI was noted. Sepsis protocol was initiated with concern for aspiration pneumonia. She expressed her desire to be intubated while in the ED so she was intubated, moved to ICU, and was started on IV Zosyn, vancomycin, and was sedated with propofol. Chest X- ray indicated respiratory failure and mild cardiac enlargement, and later labs showed acute renal failure along with elevated liver enzymes and glucose. On 02/12/23 patient was on day 3 of ventilation and labs had been progressively declining with BP consistently in the 90's/ 60's while on va sopressors. Her condition was discussed with family and pressors were stopped. Patient was given morphine and Lorazepam and terminally extubated on 02/12/23. Labs and Pending Lab Test: Laboratory Tests 02/11/23 23:12: Glucometer 265H 02/12/23 03:02: Blood Gas Puncture Site LRAD, Blood Gas Patient Temperature 37.4, Arterial Blood pH 7.21*L, Arterial Blood Partial Pressure CO2 50H, Arterial Blood Partial Pressure O2 102H, Arterial Blood HCO3 19L, Arterial Blood Total CO2 20.4L, Arterial Blood Oxygen Saturation 95, Arterial Blood Base Excess -7.5L, Jack Test YES-POS, Blood Gas Ventilator Setting YES, Blood Gas Inspired Oxygen 35% 02/12/23 04:13: White Blood Count 22.4H, Red Blood Count 4.28, Hemoglobin 13.1, Hematocrit 39, Mean Corpuscular Volume 91, Mean Corpuscular Hemoglobin 31, Mean Corpuscular Hemoglobin Concent 34, Red Cell Distribution Width 14.0, Platelet Count 200, Mean Platelet Volume 9.9, Immature Granulocyte % (Auto) 3, Neutrophils (%) (Auto) 88H, Lymphocytes (%) (Auto) 7L, Monocytes (%) (Auto) 2, Eosinophils (%) (Auto) 0, Basophils (%) (Auto) 0, Neutrophils # (Auto) 19.7H, Lymphocytes # (Auto) 1.6, Monocytes # (Auto) 0.5, Eosinophils # (Auto) 0.0, Basophils # (Auto) 0.0, Immature Granulocyte # (Auto) 0.6H, Sodium Level 135, Potassium Level 4.8, Chloride Level 99, Carbon Dioxide Level 17L, Anion Gap 19H, Blood Urea Nitrogen 124*H, Creatinine 4.84H, Estimat Glomerular Filtration Rate 9, BUN/Creatinine Ratio 26, Glucose Level 284H, Calcium Level 5.9*L, Corrected Calcium 7.4L, Phosphorus Level 8.1H, Magnesium Level 1.6, Total Bilirubin 0.5, Aspartate Amino Transf (AST/SGOT) 262H, Alanine Aminotransferase (ALT/SGPT) 133H, Alkaline Phosphatase 71, Total Protein 5.6L, Albumin 2.1L, Triglycerides Level 467#H 02/12/23 11:28: Glucometer 264H Microbiology 02/11/23 Blood Culture - Preliminary, Resulted No growth 02/10/23 Gram Stain - Final, Complete 02/10/23 Sputum Culture - Final, Complete Staphylococcus aureus 02/10/23 Urine Culture - Final, Complete NO GROWTH Home Meds Active Levalbuterol HCl 1.25 Mg/3 Ml Vial.neb 1.25 Mg INH RTQ8HR Vitamin D3 (Cholecalciferol (Vitamin D3)) 125 Mcg (5000 Unit) Tablet 125 Mcg PO DAILY Fish Oil 1,400 mg Softgel ([place]-3/Dha/Epa/Fish Oil) 850 Mg-1,400 Mg Capsule 1 Each PO DAILY B Complex with Vitamin C (Vitamin B Complex & Vit C No.3) 15-10-300 Capsule 1 Each PO DAILY Rosuvastatin Calcium 10 Mg Tablet 10 Mg PO HS Cetirizine HCl 10 Mg Tablet 5 Mg PO DAILY TAKE 1/2 OF 10MG TAB Klor-Con M20 (Potassium Chloride) 20 Meq Tab.er.prt 20 Meq PO DAILY@1800 Aspirin 325 Mg Tablet 325 Mg PO DAILY Enalapril Maleate 20 Mg Tablet 20 Mg PO DAILY Lasix (Furosemide) 40 Mg Tablet 40 Mg PO DAILY@1800 Reported Miralax (Polyethylene Glycol 3350) 17 Gram Powd.pack 17 Gm PO Q12H PRN Cinnamon (Cinnamon Bark) 500 Mg Capsule 1,000 Mg PO DAILY Tylenol (Acetaminophen) 325 Mg Tablet 650 Mg PO Q4H PRN Assessment/Pt Instructions Hospital Course: A 67 y/o female with a history of morbid obesity, COPD, HTN, HLD, TIA, arthritis, and cardiac stenosis arrived by EMS with abdominal pain and SOB from [facility]. Her family reported her having very little bowel movements for the past week and her abdominal pain had become progressively worse the week leading up to her admission. Patient was in respiratory distress on arrival, but reported no chest pain. Initial labs showed elevated WBC count, troponin- likely from hypoxia, and SHANNA. No UTI was noted. Sepsis protocol was initiated with concern for aspiration pneumonia. She expressed her desire to be intubated while in the ED so she was intubated, moved to ICU, and was started on IV Zosyn, vancomycin, and was sedated with propofol. Chest X- ray indicated respiratory failure and mild cardiac enlargement, and later labs showed acute renal failure along with elevated liver enzymes and glucose. On 02/12/23 patient was on day 3 of ventilation and labs had been progressively declining with BP consistently in the 90's/ 60's while on vasopressors. Her condition was discussed with family and pressors were stopped. Patient was given morphine and Lorazepam and terminally extubated on 02/12/23. Discharge Planning: <30 minutes discharge planning Discharge Physical Examination Vital Signs Vital Signs Date Time Temp Pulse Resp B/P (MAP) Pulse Ox O2 Delivery O2 Flow Rate FiO2 02/12/23 17:08 Nasal Cannula 2.00 02/12/23 16:00 94 35 02/12/23 15:32 82 98/55 02/12/23 14:41 26 02/12/23 12:00 37.0 Allergies: Coded Allergies: albuterol (Unverified Allergy, Severe, Anaphylaxis, 01/31/23) Patient states albuterol causes her to feel like throat is closing. States that she was tested here for it prior but is unsure when. Tetracyclines (Verified Allergy, Unknown, NAUSEA, 02/20/15) adhesive tape (Verified Allergy, Unknown, HIVES, 02/20/15) sulfamethoxazole (Verified Allergy, Unknown, RASH, 02/20/15) trimethoprim (Verified Allergy, Unknown, RASH, 02/20/15) Discharge Summary Date of Admission Feb 10, 2023 at 10:12 Date of Discharge Admission Diagnosis Chronic debility Chronic resp failure now intubated Discharge Diagnosis Assessment: Acute on chronic respiratory failure requiring intubation Aspiration pneumonia Acute kidney injury requiring nephrology consult Dehydration Hypovolemia Hypertension Plan: IV fluid Nephrology consult appreciated Ventilator management Antibiotics COLT CARDENAS DO Feb 12, 2023 18:51
--- NOTE | 2023-02-16 06:07 | Physician Query Clarification ---
PQ-Uncertain Diagnosis Admission/Discharge Admission Date: Feb 10, 2023 at 10:12 Discharge Date: Feb 12, 2023 at 21:48 The medical record reflects the following clinical scenario: History/Risk Factors: [list no more than 2] Clinical Findings: [list no more than 2] Treatment: [list no more than 2] Question: Is [diagnosis] a clinically valid diagnosis? [diagnosis] was documented in the [dates and type of documents] with no further documentation in the medical record. Please document a response in Progress Note or Discharge Summary. 1. Yes, clinically valid, condition resolved. 2. No, condition ruled out. 3. Other, with explanation of clinical findings. 4. Undetermined, no explanation for clinical findings. In responding to this query, please exercise your independent professional judgment. The purpose of this communication is to more accurately reflect the complexity of your patients condition. The fact that a question is asked does not imply that any particular answer is desired or expected. Thank you for your timely response to this clarification. Requestors name: [ ] Phone # [ ] THIS PHYSICIAN QUERY FORM IS A PERMANENT PART OF THE MEDICAL RECORD CARLOS PEREZ Feb 16, 2023 06:06
== END 2023-02-12 21:48 | disposition expired | DRG 871 ==
LOC: EDUNIT# 08:01 → ER 08:02 → ICU 10:12
PROVIDERS: ADMIT Internal Medicine; ATTEND Internal Medicine
PROC: 5A1945Z Respiratory Ventilation, 24-96 Consecutive Hours (ICD-10-PCS; principal; 2023-02-10)
PROC: 0BH17EZ Insertion of Endotracheal Airway into Trachea, Via Natural or Artificial Opening (ICD-10-PCS; 2023-02-10)
PROC: 02HV33Z Insertion of Infusion Device into Superior Vena Cava, Percutaneous Approach (ICD-10-PCS; 2023-02-10)
DX: A41.9 Sepsis, unspecified organism (principal); I21.A1 Myocardial infarction type 2; J69.0 Pneumonitis due to inhalation of food and vomit; J96.21 Acute and chronic respiratory failure with hypoxia; R65.21 Severe sepsis with septic shock; N17.9 Acute kidney failure, unspecified; E87.20 Acidosis, unspecified; Z68.44 Body mass index [BMI] 60.0-69.9, adult; E66.2 Morbid (severe) obesity with alveolar hypoventilation; Z66 Do not resuscitate; Z51.5 Encounter for palliative care; J44.9 Chronic obstructive pulmonary disease, unspecified; I10 Essential (primary) hypertension; Z86.73 Personal history of transient ischemic attack (TIA), and cerebral infarction without residual deficits; M19.90 Unspecified osteoarthritis, unspecified site; E86.1 Hypovolemia; E86.0 Dehydration; E78.00 Pure hypercholesterolemia, unspecified; Z79.82 Long term (current) use of aspirin; Z79.899 Other long term (current) drug therapy; Z88.2 Allergy status to sulfonamides; Z88.1 Allergy status to other antibiotic agents
CPT/HCPCS: 31500; 36415; 36556; 36600; 51702; 71045; 76700; 80048; 80053; 80202; 81000; 82805; 82947; 83605; 83735; 84100; 84478; 84484; 85007; 85025; 85027; 85610; 85730; 87040; 87070; 87077; 87088; 87186; 87205; 87636; 93005; 94002; 94003; 94640; 94799; 99291